=== PATIENT | female | born 1980 | race Caucasian/White ===

== ENCOUNTER 2025-02-13 15:57 | Inpatient (IN) ==
--- NOTE | 2025-02-13 16:23 | Emergency Department Note ---
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 The patient was recently diagnosed with a urine infection. She has a history of Klebsiella ESBL. She was told to come to the emergency department for admission and IV antibiotics because her symptoms are worsening. She is been having sweating at night as well as fever. She was complaining of nausea. She was complaining of back pain. She is also been noticing cough and difficulty breathing. ROS: See above HPI for pertinent positives & negatives. A total of 10 systems reviewed and were otherwise negative. PAST MEDICAL HISTORY: See Below PAST SURGICAL HISTORY: See Below FAMILY HISTORY: See Below SOCIAL HISTORY: See Below HOME MEDICATIONS: See Below ALLERGIES: See Below VITALS: See Below PHYSICAL EXAMINATION: GENERAL: Patient is awake alert in no acute distress patient is resting comfortably and showing no signs of anxiety EYES: The conjunctivae are clear. The pupils are round and reactive. EARS, NOSE, MOUTH AND THROAT: The nose is without any evidence of any deformity. NECK: The neck is nontender and supple. RESPIRATORY: Normal respiratory effort is noted there is no evidence of wheezing rhonchi or rales CARDIOVASCULAR: Regular rate and rhythm noted there no murmurs rubs or gallops normal S1 normal S2. GASTROINTESTINAL: The abdomen is soft and mildly distended. There is no guarding or rigidity appreciated. MUSCULOSKELETAL/EXTREMITIES: There is no evidence of gross deformity full range of motion is noted in the hips and shoulders. SKIN: There is no obvious evidence of any rash. There are no petechiae, pallor or cyanosis noted. NEUROLOGIC: Patient is awake alert and oriented x3 MEDICAL DECISION MAKING: The patient is a 44-year-old female who presented to the emergency department for an evaluation. The patient has a history of chronic indwelling Cintron. The patient has a history of Klebsiella infection with ESBL resistance pattern. The patient was told to come to the emergency department by her primary urologist. The patient presented to the emergency department after started feeling ill including fever and bodyaches. I discussed the patient's laboratory and radiographic studies with her. She was treated with IV fluids as well as IV antibiotics. I discussed her condition with the clinical pharmacist in the emergency department. I discussed the patient's condition with the on-call [facility] hospitalist. They have agreed to evaluate the patient in the emergency department for further management and inpatient treatment. Triage Nursing notes reviewed. Prior medical records reviewed Vital Signs: reviewed and remarkable for no significant abnormalities Differential diagnosis: Etiologies such as appendicitis, diverticulitis, obstruction, inflammatory bowel disease, renal colic, PUD, biliary pathology, pancreatitis, mesenteric ischemia, aortic pathology, infections, genitourinary, UTI, perforated viscus, as well as others were entertained. ER treatment provided: See below Diagnostics interpreted by me: ECG: none Cardiac Monitoring: An order was placed for continuous cardiac monitoring. The monitor shows a rate of 70 bpm with sinus rhythm. Laboratory studies: As stated above and show below. Imaging studies: See below. Radiographic imaging was reviewed by myself Consultation(s): I discussed this case with Dr. Valerio who is on-call for the [facility] hospitalist group. Past Med/Surg History Problem List (Updated 02/13/25 @ 20:32 by Edgardo Acevedo DO) Urinary tract infection (Acute) Infection due to ESBL-producing Klebsiella pneumoniae (Acute) Catheter-associated urinary tract infection (Acute) Chronic narcotic dependence Malfunction of Cintron catheter Paraplegia Catheter-associated urinary tract infection Encounter for pre-operative examination Change in bowel habits Abdominal pain Blood in stool Radicular pain of both lower extremities Shortness of breath Current smoker COPD with emphysema Incontinence Nocturnal hypoxemia COPD with asthma Severe back pain Neuromuscular disease Recurrent UTI Urinary retention Ambulatory dysfunction Post traumatic stress disorder (PTSD) Bipolar affective disorder in remission 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 luz- uses electric wheelchair- will be seeing neurosurgeon in [place] may 2025 Heart problem "they told me i have scarring on my heart" pt states she will see cardio at [facility] on 02/09/25 Snchiara has sleep study on 02/17/25 COPD with emphysema uses daily inhaler and rescue inhaler twice daily- gets sob at rest- follow with dr. lee, smokes < 5 cigs per day Ambulatory dysfunction uses motorized wheelchair Trauma in childhood Hiatal hernia Hepatitis unsure which one, says cleared on own- [facility] physician dr. ileana IBARRA (hyperlipidemia) Depression Surgical History History of surgery on right wrist (2010) fluid in joints S/P inguinal hernia repair right- as achild S/P x2 S/P tubal ligation S/P right oophorectomy (2017) open S/P laparoscopic hysterectomy (2016) RATLH-LSO Family History (Updated 02/13/25 @ 19:30 by Johnny Valerio MD) Other Prostate cancer Denies family history of Neuromuscular disorder Ovarian cancer Breast cancer Colorectal cancer Social History (Updated 02/13/25 @ 19:29 by Johnny Valerio MD) Smoking Status: Current every day smoker Tobacco Type: Cigarettes Age Started Using Tobacco: 11; Age Quit Using Tobacco: 0; packs per day: 1; Cigarettes Per Day: < 5 cigs per day; Second Hand Exposure: No; Do You Dip or Chew Tobacco: No; Hx Alcohol Use: No Hx Substance Use: Yes Last Used Substance Other:: medical marijuana- daily - advised Substance Use Type Other:: Medical Marijuana and Oxycodone for pain Preferred Language: [place] Communication Ability: Effective Bioinformatics Specialist Required: No Beliefs That Will Affect Care: None marital status: Single Current Living Situation: Family Current Living Situation Comment: lives with 2 children in [place] current occupational status: disabled How many Children do You have: 2 Feels Safe at Home: Yes Assistive Devices: Raised Toilet Seat, Stair Lift and Wheelchair Allergies Allergies Allergy/AdvReac Type Severity Reaction Status Date / Time Penicillins Allergy Intermediate Hives Verified 02/05/25 14:27 Home Meds Home Medications Medication Instructions Recorded Confirmed pregabalin 150 mg capsule 150 mg PO TID 10/11/24 02/13/25 omeprazole 40 mg capsule,delayed 40 mg PO BID 11/19/24 02/13/25 release duloxetine 30 mg capsule,delayed 30 mg PO QAM 02/03/25 02/13/25 release nystatin 100,000 unit/gram topical 1 applic topical TID PRN . 02/03/25 02/13/25 powder Previous Rx's Medication Instructions Recorded conjugated estrogens 0.625 mg/gram 0.3125 mg topical .COMPLEX #30 12/08/24 vaginal cream (Premarin) grams Adult Briefs #200 ea 12/26/24 Bedside Commode #1 ea 12/26/24 Grab Bar, Wall Mounted #1 ea 12/26/24 Incontinence pad #200 ea 12/26/24 Nitrile gloves #200 ea 12/26/24 Over the Bed table #1 ea 12/26/24 Perineal Cleansing wipes #12 ea 12/26/24 Trapeze [place] #1 ea 12/26/24 Underpad, Disposable #200 ea 12/26/24 food supplemt, lactose-reduced 15 ea PO TID #1,422 mL 12/26/24 (Ensure Original oral liquid) Flutter Valve #1 ea 12/29/24 albuterol sulfate 90 mcg/actuation 2 puff inhalation Q4H PRN Wheezing 12/29/24 aerosol inhaler #8.5 grams budesonide 160 mcg-glycopyr 9 2 inh inhalation BID #10.7 grams 12/29/24 mcg-formot 4.8 mcg/actuation HFA inhaler (Breztri Aerosphere) zolpidem 5 mg tablet 5 mg PO ONCE PRN sleep #2 tabs 12/29/24 sennosides 8.6 mg-docusate sodium 1 tab PO QAM 30 days #30 tabs 12/31/24 50 mg tablet (Senokot-S) lidocaine 5 % topical patch 1 patch transdermal QAM #30 ea 01/16/25 baclofen 10 mg tablet 10 mg PO TID PRN muscle spasm 30 01/19/25 days #90 tabs buspirone 5 mg tablet 5 mg PO BID #60 tabs 01/19/25 mirtazapine 15 mg tablet 15 mg PO HS depression 1 month #30 01/19/25 tabs nitrofurantoin 100 mg PO DAILY 90 days #90 caps 02/02/25 monohydrate/macrocrystals 100 mg capsule (Macrobid) buprenorphine 10 mcg/hour weekly 1 patch transdermal Q7D 02/09/25 transdermal patch (Butrans) neuromuscular degen disease, severe pain 1 month #4 ea morphine 15 mg immediate release 7.5 mg (1/2 x 15 mg) PO Q6H PRN 02/09/25 tablet breakthrough pain, severe 1 month #90 tabs ondansetron 4 mg disintegrating 4 mg PO Q6H PRN nausea and 02/09/25 tablet vomiting 1 month #90 tabs Results & Data (ED) Vital Signs Vital Signs - 24 hr 02/13/25 16:01 02/13/25 16:52 02/13/25 18:30 Temperature 37.1 C Temperature Source Temporal Artery Scan Pulse Rate 88 Pulse Rate [Finger] 72 70 Respiratory Rate 18 16 16 Respiratory Effort / Characteristics Non-Labored Spontaneous Respiratory Depth Normal Blood Pressure 135/85 Blood Pressure [Right Arm] 146/86 H Blood Pressure Mean 101 Blood Pressure Mean [Right Arm] 106 Pulse Oximetry 98 95 96 Oxygen Delivery Method Room Air Room Air Room Air Sepsis Recent Fever Within 48 Hours No Sepsis New/Unexplained Change in Mental Status No Sepsis Action Taken by Nursing No Action Required Home Medications Current Medication List: was personally reviewed by me Laboratory Data Attestation: I reviewed the patient's lab results. 02/13/25 16:42 02/13/25 16:42 Lab Results 02/13/25 02/13/25 02/13/25 Range/Units 16:42 16:46 18:29 WBC 6.97 (4.8-10.8) K/ul RBC 4.08 L (4.20-5.40) M/uL Hgb 12.2 (12.0-16.0) g/dL Hct 35.3 L (37.0-47.0) % MCV 86.5 (80.0-100.0) fL MCH 29.9 (25.0-34.0) pg MCHC 34.6 (32.0-36.0) g/dL RDW Std Deviation 39.2 (36.4-46.3) fL RDW Coeff of María Elena 12.2 (11.5-14.5) % Plt Count 340 (130-400) K/uL MPV 10.8 (9.4-12.4) fL Immature Gran % (Auto) 0.1 % Neut % (Auto) 75.7 % Lymph % (Auto) 16.2 % Mckenzie % (Auto) 7.3 % Eos % (Auto) 0.4 % Baso % (Auto) 0.3 % Neut # (Auto) 5.27 (1.40-6.50) K/uL Lymph # (Auto) 1.13 L (1.20-3.40) K/uL Mckenzie # (Auto) 0.51 (0.11-0.59) K/uL Eos # (Auto) 0.03 (0.00-0.50) K/uL Baso # (Auto) 0.02 (0.00-0.20) K/uL Immature Gran # (Auto) 0.01 (0.01-0.20) K/uL Sodium 134 L (136-145) mmol/L Potassium 4.1 (3.5-5.1) mmol/L Chloride 103 (98-107) mmol/L Carbon Dioxide 23 (21-32) mmol/L Anion Gap 8 (3-11) BUN 9 (6-23) mg/dl Creatinine 0.98 (0.6-1.2) mg/dl Est Cr Clr Drug Dosing Not Reportable eGFR 72.99 BUN/Creatinine Ratio 9.2 L (10-20) Glucose 106 H (70-99(Fasting)) mg/dl Calcium 8.9 (8.6-10.3) mg/dl Magnesium 1.9 (1.7-2.4) mg/dl Total Bilirubin 0.3 (0.2-1.0) mg/dl AST 15 (13-39) U/L ALT 12 (7-52) U/L Alkaline Phosphatase 85 (34-104) U/L Total Protein 6.2 (6.0-8.3) gm/dl Albumin 3.9 (3.4-5.0) gm/dl Globulin 2.3 L (2.5-4.0) gm/dl Albumin/Globulin Ratio 1.7 (0.9-2) Lipase 10 L (11-82) U/L Urine Color Yellow Urine Appearance Clear (Clear) Urine pH 7.0 (4.5-7.5) Ur Specific [place] > 1.045 H (1.000-1.030) Urine Protein Negative (Negative) Urine Glucose (UA) Negative (Negative) Urine Ketones Trace H (Negative) Urine Blood Negative (Negative) Urine Nitrite Negative (Negative) Urine Bilirubin Negative (Negative) Urine Urobilinogen Negative (Negative) Ur Leukocyte Esterase Negative (Negative) Urine Comment SARS-CoV-2 (PCR) NEGATIVE (Negative) Influenza Type A (PCR) Negative (Neg) Influenza Type B (PCR) Negative (Neg) RSV (RT-PCR) Negative (Neg) Administered Medications Discontinued Medications Sodium Chloride (Nss) 1,000 mls @ 999 mls/hr IV .Q1H1M STA Stop: 02/13/25 17:13 Last Infusion: 02/13/25 17:50 Dose: Infused Documented By: Admin: 02/13/25 16:47 Dose: 999 mls/hr Documented By: DELMI Ertapenem (Invanz 1000mg) 1,000 mg in 10 mls @ 2 mls/min IV NOW ONE Stop: 02/13/25 16:34 Last Admin: 02/13/25 16:47 Dose: 2 mls/min Documented By: DELMI Ioversol (Optiray 320 100ml) 93 ml IV ONCE ONE Stop: 02/13/25 16:35 Last Admin: 02/13/25 16:35 Dose: 93 ml Documented By: OSCAR Morphine Sulfate (Morphine Sulfate Ir 15 Mg Tab (Immediate Release)) 15 mg PO ONE STA Stop: 02/13/25 19:01 Last Admin: 02/13/25 19:16 Dose: 15 mg Documented By: DELMI Ondansetron HCl (Ondansetron Inj 2 Mg/Ml 2 Ml Vial) 4 mg IV NOW STA Stop: 02/13/25 19:01 Last Admin: 02/13/25 19:16 Dose: 4 mg Documented By: DELMI Imaging Data Attestation: I personally reviewed and interpreted this imaging study as follows: My Impression: CT of the abdomen and pelvis was obtained in the emergency department. My interpretation is no free air or definite bowel obstruction, final report below. Radiologist's Impression: Abdomen/Pelvis CT 02/13/25 16:13 Clinical History: Dysuria Technique: Axial computed tomography images were obtained of the abdomen and pelvis after the administration of intravenous contrast. Comparison is made to the prior CT dated 01/08/2025. Findings: The liver is overall of normal size, attenuation, and contour with no sign of cirrhosis or significant fatty infiltration. No liver mass lesion is seen. The portal vein is patent. The gallbladder appears unremarkable. No bile duct dilatation is noted. The spleen is of normal size. No focal splenic lesion is evident. The pancreas appears normal with no sign of acute or chronic pancreatitis and no mass lesion noted. The pancreatic duct is of normal caliber. The adrenal glands appear unremarkable. No definite renal or proximal ureteral calculi are seen on this contrast-enhanced study. There is no hydronephrosis or perinephric stranding. No renal mass lesion is identified. The aorta is of normal caliber. No abdominal adenopathy is seen. There is prominence of the gastric bulge that may be due to the decompressed state. There is no sign of small bowel obstruction. There is possible mild wall thickening of the sigmoid colon and rectum. No free intraperitoneal fluid or air is identified. No distal ureteral or bladder calculi are seen. No bladder mass lesion is evident. There is a Cintron catheter with the tip and balloon within the urethra rather than the urinary bladder. The iliac arteries are of normal caliber. No pelvic adenopathy is noted. The uterus has been removed. There is apparent pelvic prolapse The lungs bases appear clear. No fracture is identified. No focal osseous lesion is seen Impression: 1. Cintron catheter with the tip and balloon within the urethra rather than the urinary bladder. Repositioning may be needed 2. Possible mild wall thickening of the sigmoid colon and rectum, which may be due to infectious colitis or inflammatory bowel disease 3. Apparent pelvic prolapse Electronically signed by George García 02-13-2025 5:23 PM Chest X-Ray 02/13/25 16:13 Clinical History: Cough Technique: A frontal view of the chest was obtained Findings: There are no confluent pulmonary infiltrates. The heart size is within normal limits. No pleural effusion or pneumothorax is seen. There is no definite pulmonary nodule. No fracture is noted. No foreign body is seen Impression: No active disease Electronically signed by George García 02-13-2025 5:25 PM Discharge Plan Visit Data Chief Complaint: Urinary Symptoms Stated Complaint: UTI ED Provider: Edgardo Acevedo Discharge Problem: Catheter-associated urinary tract infection, Infection due to ESBL-producing Klebsiella pneumoniae, Urinary tract infection Patient Disposition: Being Evaluated by Hospitalist Condition: Fair Forms Stand Alone Forms: Pending Sale To [facility] Prescriptions Prescriptions: No Action (DME) Adult Briefs XL See Rx Instructions .Route .MEDSUPPLY Qty: 200 3RF Rx Instructions: As directed (DME) Trapeze [place] See Rx Instructions .Route .MEDSUPPLY Qty: 1 0RF Rx Instructions: As directed (DME) Incontinence pad See Rx Instructions .Route .MEDSUPPLY Qty: 200 3RF Rx Instructions: As directed (DME) Bedside Commode See Rx Instructions .Route .MEDSUPPLY Qty: 1 0RF Rx Instructions: As directed (DME) Over the Bed table See Rx Instructions .Route .MEDSUPPLY Qty: 1 0RF Rx Instructions: As directed (DME) Perineal Cleansing wipes See Rx Instructions .Route .MEDSUPPLY Qty: 12 3RF Rx Instructions: As directed (DME) Underpad, Disposable See Rx Instructions .Route .MEDSUPPLY Qty: 200 3RF Rx Instructions: As directed (DME) Grab Bar, Wall Mounted See Rx Instructions .Route .MEDSUPPLY Qty: 1 0RF Rx Instructions: As directed (DME) Nitrile gloves See Rx Instructions .Route .MEDSUPPLY Qty: 200 0RF Rx Instructions: As directed Ensure Original Liquid 15 ea PO TID Qty: 1422 3RF sennosides-docusate sodium [Senokot-S] 8.6-50 mg tablet 1 tab PO QAM 30 Days Qty: 30 3RF lidocaine 5 % adhesive patch,medicated 1 patch transdermal QAM Qty: 30 0RF baclofen 10 mg tablet 10 mg PO TID PRN (Reason: muscle spasm) 30 Days Qty: 90 1RF mirtazapine 15 mg tablet 15 mg PO HS 30 Days Qty: 30 1RF buspirone 5 mg tablet 5 mg PO BID Qty: 60 3RF buprenorphine [Butrans] 10 mcg/hour patch weekly 1 patch transdermal Q7D 30 Days Qty: 4 0RF morphine 15 mg tablet 7.5 mg PO Q6H PRN (Reason: breakthrough pain, severe) 30 Days Qty: 90 0RF ondansetron 4 mg tablet,disintegrating 4 mg PO Q6H PRN (Reason: nausea and vomiting) 30 Days Qty: 90 1RF Premarin 0.625 mg/gram cream 0.3125 mg topical .COMPLEX Qty: 30 0RF Rx Instructions: apply 0.5g nightly x 2 weeks, then 2x/wk albuterol sulfate 90 mcg/actuation HFA aerosol inhaler 2 puff inhalation Q4H PRN (Reason: Wheezing) Qty: 8.5 3RF Breztri Aerosphere 160-9-4.8 mcg/actuation HFA aerosol inhaler 2 inh inhalation BID Qty: 10.7 2RF zolpidem 5 mg tablet 5 mg PO ONCE PRN (Reason: sleep) Qty: 2 0RF Rx Instructions: Take 1 tab on the night of sleep study (DME) Flutter Valve Device See Rx Instructions .MEDSUPPLY Qty: 1 0RF Rx Instructions: Use it every 6 hours when awake. nitrofurantoin monohyd/m-cryst [Macrobid] 100 mg capsule 100 mg PO DAILY 90 Days Qty: 90 0RF Rx Instructions: must administer with a meal/food, antibiotic suppression for recurrent UTI, start after current course Levaquin completed (02/09) nystatin 100,000 unit/gram powder 1 applic topical TID PRN (Reason: .) duloxetine 30 mg capsule,delayed release(DR/EC) 30 mg PO QAM omeprazole 40 mg capsule,delayed release(DR/EC) 40 mg PO BID pregabalin 150 mg capsule 150 mg PO TID Referrals Referrals: Royer Schofield DO [Primary Care Provider] -
[2025-02-13] MEDS: OPTIRAY 320 100ml IV ONE (16:35)
[2025-02-13] MEDS: SODIUM CHLORIDE 0.9% 1,000 ML IV STA (16:47)
[2025-02-13] MEDS: ERTAPENEM 1000MG 1,000 MG/10 ML SYR IV ONE (16:47)
[2025-02-13 17:13] LABS: Hematocrit (blood only) 35.3 % (37.0-47.0); Hemoglobin 12.2 g/dL (12.0-16.0); Immature Granulocytes # (auto) 0.01 K/uL (0.01-0.20); Immature Granulocytes % (auto) 0.1 %; Mean Corpuscular Hemoglobin 29.9 pg (25.0-34.0); Mean Corpuscular Volume 86.5 fL (80.0-100.0); Platelet Count 340 K/uL (130-400); RDW Standard Deviation 39.2 fL (36.4-46.3); Red Blood Count 4.08 M/uL (4.20-5.40); White Blood Count 6.97 K/ul (4.8-10.8)
--- NOTE | 2025-02-13 17:25 | CT Scan Report ---
Clinical History: Dysuria Technique: Axial computed tomography images were obtained of the abdomen and pelvis after the administration of intravenous contrast. Comparison is made to the prior CT dated 01/08/2025. Findings: The liver is overall of normal size, attenuation, and contour with no sign of cirrhosis or significant fatty infiltration. No liver mass lesion is seen. The portal vein is patent. The gallbladder appears unremarkable. No bile duct dilatation is noted. The spleen is of normal size. No focal splenic lesion is evident. The pancreas appears normal with no sign of acute or chronic pancreatitis and no mass lesion noted. The pancreatic duct is of normal caliber. The adrenal glands appear unremarkable. No definite renal or proximal ureteral calculi are seen on this contrast-enhanced study. There is no hydronephrosis or perinephric stranding. No renal mass lesion is identified. The aorta is of normal caliber. No abdominal adenopathy is seen. There is prominence of the gastric bulge that may be due to the decompressed state. There is no sign of small bowel obstruction. There is possible mild wall thickening of the sigmoid colon and rectum. No free intraperitoneal fluid or air is identified. No distal ureteral or bladder calculi are seen. No bladder mass lesion is evident. There is a Moya catheter with the tip and balloon within the urethra rather than the urinary bladder. The iliac arteries are of normal caliber. No pelvic adenopathy is noted. The uterus has been removed. There is apparent pelvic prolapse The lungs bases appear clear. No fracture is identified. No focal osseous lesion is seen Impression: 1. Moya catheter with the tip and balloon within the urethra rather than the urinary bladder. Repositioning may be needed 2. Possible mild wall thickening of the sigmoid colon and rectum, which may be due to infectious colitis or inflammatory bowel disease 3. Apparent pelvic prolapse Electronically signed by George García 02-13-2025 5:23 PM
--- NOTE | 2025-02-13 17:26 | XRay Report ---
Clinical History: Cough Technique: A frontal view of the chest was obtained Findings: There are no confluent pulmonary infiltrates. The heart size is within normal limits. No pleural effusion or pneumothorax is seen. There is no definite pulmonary nodule. No fracture is noted. No foreign body is seen Impression: No active disease Electronically signed by George García 02-13-2025 5:25 PM
[2025-02-13 17:32] LABS: Alanine Aminotransferase 12 U/L (7-52); Albumin Globulin Ratio 1.7 (0.9-2); Albumin Level 3.9 gm/dl (3.4-5.0); Alkaline Phosphatase 85 U/L (34-104); Anion Gap 8 (3-11); Bilirubin,Total 0.3 mg/dl (0.2-1.0); Blood Urea Nitrogen 9 mg/dl (6-23); Calcium 8.9 mg/dl (8.6-10.3); Carbon Dioxide 23 mmol/L (21-32); Chloride 103 mmol/L (98-107); Globulin 2.3 gm/dl (2.5-4.0); Glucose 106 mg/dl (70-99(Fasting)); Lipase 10 U/L (11-82); Potassium 4.1 mmol/L (3.5-5.1); Sodium 134 mmol/L (136-145); Total Protein 6.2 gm/dl (6.0-8.3)
[2025-02-13 17:39] LABS: Influenza A virus by PCR Negative (Neg); Influenza B virus by PCR Negative (Neg); SARS CoV2 RNA(COVID-19) Ceph NEGATIVE (Negative)
--- NOTE | 2025-02-13 18:19 | History & Physical Report ---
Date of Service February 13, 2025 Assessment & Plan (1) Catheter-associated urinary tract infection: (2) Malfunction of Cintron catheter: (3) COPD with emphysema: (4) Neuromuscular disease: (5) Paraplegia: (6) Bipolar affective disorder in remission: (7) Neoplasm of cranial nerve: (8) Arachnoiditis of spine: (9) GERD (gastroesophageal reflux disease): (10) Chronic narcotic dependence: Plan 44yo female with history of progressive neuromuscular disorder (vs myopathy) with resulting wheelchair-dependency / acquired paraplegia, lumbar arachnoiditis, chronic indwelling urinary catheter, ongoing tobacco use, COPD, recurrent UTIs, GERD, and chronic pain syndrome (on Butrans patch + morphine IR prn) presents from home with her significant other due to 3-4 days of leaking cintron catheter, bladder spasm, hot/cold chills, poor oral intake, bladder pain/abdominal pain, and nausea. No discrete fevers. About 2 weeks ago was dx with an ESBL Klebsiella UTI and was prescribed a 7-day course of levaquin but she never took such. #catheter-associated UTI - -01/30/25 urine cx with ESBL Klebsiella -was prescribed levaquin by [facility] but patient reports she never took it -has had bladder symptoms for several days -has had systemic symptoms (decreased PO intake, sweats, etc) also for several days -I ordered blood cx's x 2 sets -IV ertapenem ordered by ER provider to cover the ESBL Klebsiella -cintron catheter was malpositioned on CT a/p today -old cintron removed, new cintron placed -many of her bladder symptoms improved after a new cintron was placed -repeat u/a relatively bland -in light of her bladder symptoms will cont IV ertapenem for now #cintron malposition - -as above -s/p removal of old cintron; new cintron placed #acquired paraplegia - -2nd to neuromuscular disorder vs myopathy; follows with Dr Jhonatan Quick, [facility] -wheelchair-dependent at baseline #neuromuscular d/o vs myopathy - -schedule her baclofen 10mg TID as she is reporting considerable muscle spasm, back pain, etc. today -cont duloxetine daily -cont lyrica TID #tobacco use - -offer nicoderm patch if desired by patient #COPD - -chest symptoms likely due to COPD -schedule duonebs QID -defer on systemic steroids for now -mucinex BID -cont home inhalers #GERD - -PPI twice daily #chronic pain syndrome - -cont butrans patch 10mcg- -cont morphine IR - 7.5mg prn for mild/mod pain; 15mg prn for severe pain #DVT proph - -if patient stays beyond tomorrow add SC lovenox or heparin #?abnormal distal colon on CT, diarrhea - -just had colonoscopy on 02/05 -colonoscopy was normal except for hemorrhoids -in light of frequent healthcare exposure will check a cdiff if she continues with diarrhea place on observation status History of Present Illness Chief Complaint: sweats, hot/cold chills, poor oral intake, recent ESBL Klebsiella UTI Primary Care Provider: Royer Schofield, 44yo female with history of progressive neuromuscular disorder vs myopathy with resulting wheelchair-dependency / acquired paraplegia, lumbar arachnoiditis, chronic indwelling urinary catheter, ongoing tobacco use, COPD, recurrent UTIs, GERD, and chronic pain syndrome (on Butrans patch + morphine IR prn) presents from home with her significant other due to 3-4 days of leaking cintron catheter, bladder spasm, hot/cold chills, poor oral intake, bladder pain/abdominal pain, and nausea. No discrete fevers. About 2 weeks ago was dx with an ESBL Klebsiella UTI and was prescribed a 7-day course of levaquin but she never took such. During her ER work-up she underwent CT abdomen/pelvis showing incorrect placement of her cintron catheter with the tip of the catheter & the balloon lodged in the urethra rather than bladder. She has had this cintron for about 2 weeks to her recollection. The old catheter was removed, and a new cintron was inserted with immediate return of 400cc of clear yellow urine. She did report improvement in her bladder pain/pressure/spasm following cintron exchange. Allergies Allergy/AdvReac Type Severity Reaction Status Date / Time Penicillins Allergy Intermediate Hives Verified 02/05/25 14:27 Home Medications Medication Instructions Recorded Confirmed Type pregabalin 150 mg capsule 150 mg PO TID 10/11/24 02/13/25 History omeprazole 40 mg capsule,delayed 40 mg PO BID 11/19/24 02/13/25 History release conjugated estrogens 0.625 mg/gram 0.3125 mg topical .COMPLEX #30 12/08/24 02/13/25 Rx vaginal cream (Premarin) grams Adult Briefs #200 ea 12/26/24 01/30/25 Rx Bedside Commode #1 ea 12/26/24 01/30/25 Rx Grab Bar, Wall Mounted #1 ea 12/26/24 01/30/25 Rx Incontinence pad #200 ea 12/26/24 01/30/25 Rx Nitrile gloves #200 ea 12/26/24 01/30/25 Rx Over the Bed table #1 ea 12/26/24 01/30/25 Rx Perineal Cleansing wipes #12 ea 12/26/24 02/13/25 Rx Trapeze [place] #1 ea 12/26/24 02/13/25 Rx Underpad, Disposable #200 ea 12/26/24 02/13/25 Rx food supplemt, lactose-reduced 15 ea PO TID #1,422 mL 12/26/24 02/13/25 Rx (Ensure Original oral liquid) Flutter Valve #1 ea 12/29/24 01/30/25 Rx albuterol sulfate 90 mcg/actuation 2 puff inhalation Q4H PRN Wheezing 12/29/24 02/13/25 Rx aerosol inhaler #8.5 grams budesonide 160 mcg-glycopyr 9 2 inh inhalation BID #10.7 grams 12/29/24 02/13/25 Rx mcg-formot 4.8 mcg/actuation HFA inhaler (Breztri Aerosphere) zolpidem 5 mg tablet 5 mg PO ONCE PRN sleep #2 tabs 12/29/24 02/13/25 Rx sennosides 8.6 mg-docusate sodium 1 tab PO QAM 30 days #30 tabs 12/31/24 02/13/25 Rx 50 mg tablet (Senokot-S) lidocaine 5 % topical patch 1 patch transdermal QAM #30 ea 01/16/25 02/13/25 Rx baclofen 10 mg tablet 10 mg PO TID PRN muscle spasm 30 01/19/25 02/13/25 Rx days #90 tabs buspirone 5 mg tablet 5 mg PO BID #60 tabs 01/19/25 02/13/25 Rx mirtazapine 15 mg tablet 15 mg PO HS depression 1 month #30 01/19/25 02/13/25 Rx tabs nitrofurantoin 100 mg PO DAILY 90 days #90 caps 02/02/25 02/13/25 Rx monohydrate/macrocrystals 100 mg capsule (Macrobid) duloxetine 30 mg capsule,delayed 30 mg PO QAM 02/03/25 02/13/25 History release nystatin 100,000 unit/gram topical 1 applic topical TID PRN . 02/03/25 02/13/25 History powder buprenorphine 10 mcg/hour weekly 1 patch transdermal Q7D 02/09/25 02/13/25 Rx transdermal patch (Butrans) neuromuscular degen disease, severe pain 1 month #4 ea morphine 15 mg immediate release 7.5 mg (1/2 x 15 mg) PO Q6H PRN 02/09/25 02/13/25 Rx tablet breakthrough pain, severe 1 month #90 tabs ondansetron 4 mg disintegrating 4 mg PO Q6H PRN nausea and 02/09/25 02/13/25 Rx tablet vomiting 1 month #90 tabs Past Med/Surg History Problem List Urinary tract infection (Acute) Infection due to ESBL-producing Klebsiella pneumoniae (Acute) Catheter-associated urinary tract infection (Acute) Chronic narcotic dependence Malfunction of Cintron catheter Paraplegia Catheter-associated urinary tract infection Encounter for pre-operative examination Change in bowel habits Abdominal pain Blood in stool Radicular pain of both lower extremities Shortness of breath Current smoker COPD with emphysema Incontinence Nocturnal hypoxemia COPD with asthma Severe back pain Neuromuscular disease Recurrent UTI Urinary retention Ambulatory dysfunction Post traumatic stress disorder (PTSD) Bipolar affective disorder in remission 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 quick- uses electric wheelchair- will be seeing neurosurgeon in [place] may 2025 Heart problem "they told me i have scarring on my heart" pt states she will see cardio at [facility] on 02/09/25 Snchiara has sleep study on 02/17/25 COPD with emphysema uses daily inhaler and rescue inhaler twice daily- gets sob at rest- follow with dr. lee, smokes < 5 cigs per day Ambulatory dysfunction uses motorized wheelchair Trauma in childhood Hiatal hernia Hepatitis unsure which one, says cleared on own- [facility] physician dr. ileana IBARRA (hyperlipidemia) Depression Surgical History History of surgery on right wrist (2010) fluid in joints S/P inguinal hernia repair right- as achild S/P x2 S/P tubal ligation S/P right oophorectomy (2017) open S/P laparoscopic hysterectomy (2016) RATLH-LSO Family History Other Prostate cancer Denies family history of Neuromuscular disorder Ovarian cancer Breast cancer Colorectal cancer Social History Smoking Status: Current every day smoker Tobacco Type: Cigarettes Age Started Using Tobacco: 11; Age Quit Using Tobacco: 0; packs per day: 1; Cigarettes Per Day: < 5 cigs per day; Second Hand Exposure: Yes; Do You Dip or Chew Tobacco: No; Tobacco Cessation Education Requested by Patient: No Hx Alcohol Use: No Hx Substance Use: Yes Last Used Substance: Just Prior to Arrival Last Used Substance Other:: This morning Substance Use Type Other:: Medical Marijuana and Oxycodone for pain Preferred Language: Urdu Communication Ability: Effective Fruit Stuffer Required: No Beliefs That Will Affect Care: None marital status: Single Current Living Situation: Family and Significant Other Current Living Situation Comment: lives with 2 children in [place] current occupational status: disabled How many Children do You have: 2 Other Information That Helps Us Care for You: No Feels Safe at Home: Yes Safety Concerns: Feels Safe At This Time Assistive Devices: Hospital Bed, Lift Chair, Raised Toilet Seat, Scooter/Electric Scooter, Stair Lift and Wheelchair Review of Systems Review of Systems: gen - no fevers, but has had hot/cold chills & sweats last few days; eating has been poor eyes - no ocular symptoms HENT - no URI symptoms CV - chest tightness, but no pain; no edema pulm - mild cough, mild wheezing, no dyspnea at rest GI - some nausea, but no vomiting; mild suprapubic discomfort - bladder pain, bladder spasm, no hematuria musculo - myalgias/aches, muscle weakness neuro - hand numbness b/l; prox muscle weakness; no headache today endo - no diabetes skin - no rash Physical Exam Physical Exam: gen - resting comfortably in bed, NAD, awake, alert eyes - PERRL HENT - mouth with dry MM, no lesions, tongue is white - ?thrush neck - no JVD, no goiter, no lymph nodes heart - RRR, s1 s2, no murmur lungs - mild end-exp wheezes b/l, no rales, no increased work of breathing abd - soft NT ND BS+, no HSM ext - no edema, pulses 2+ b/l feet neuro - increased tone b/l LEs; prox muscle weakness shoulder region and hip region; ankle clonus b/l - couple beats; DTRs brisk b/l; no facial droop skin - no rash psych - a/o x 3 - cintron in place, clear yellow urine in cintron bag Results & Data Results & Data Vital Signs (Past 12 Hours) Vital Signs Temp Pulse Pulse Resp BP Pulse Ox O2 Del Method 02/13/25 16:52 72 16 95 Room Air 02/13/25 16:01 37.1 C 88 18 135/85 98 Room Air Laboratory Results Laboratory Results - last 24 hr 02/13/25 02/13/25 02/13/25 16:42 16:46 18:29 WBC 6.97 RBC 4.08 L Hgb 12.2 Hct 35.3 L MCV 86.5 MCH 29.9 MCHC 34.6 RDW Std Deviation 39.2 RDW Coeff of María Elena 12.2 Plt Count 340 MPV 10.8 Immature Gran % (Auto) 0.1 Neut % (Auto) 75.7 Lymph % (Auto) 16.2 [place] % (Auto) 7.3 Eos % (Auto) 0.4 Baso % (Auto) 0.3 Neut # (Auto) 5.27 Lymph # (Auto) 1.13 L [place] # (Auto) 0.51 Eos # (Auto) 0.03 Baso # (Auto) 0.02 Immature Gran # (Auto) 0.01 Sodium 134 L Potassium 4.1 Chloride 103 Carbon Dioxide 23 Anion Gap 8 BUN 9 Creatinine 0.98 Est Cr Clr Drug Dosing Not Reportable eGFR 72.99 BUN/Creatinine Ratio 9.2 L Glucose 106 H Calcium 8.9 Magnesium Pending Total Bilirubin 0.3 AST 15 ALT 12 Alkaline Phosphatase 85 Total Protein 6.2 Albumin 3.9 Globulin 2.3 L Albumin/Globulin Ratio 1.7 Lipase 10 L Urine Color Yellow Urine Appearance Clear Urine pH 7.0 Ur Specific [place] > 1.045 H Urine Protein Negative Urine Glucose (UA) Negative Urine Ketones Trace H Urine Blood Negative Urine Nitrite Negative Urine Bilirubin Negative Urine Urobilinogen Negative Ur Leukocyte Esterase Negative Urine Comment SARS-CoV-2 (PCR) NEGATIVE Influenza Type A (PCR) Negative Influenza Type B (PCR) Negative RSV (RT-PCR) Negative Diagnostic Findings Abdomen/Pelvis CT 02/13/25 16:13 Clinical History: Dysuria Technique: Axial computed tomography images were obtained of the abdomen and pelvis after the administration of intravenous contrast. Comparison is made to the prior CT dated 01/08/2025. Findings: The liver is overall of normal size, attenuation, and contour with no sign of cirrhosis or significant fatty infiltration. No liver mass lesion is seen. The portal vein is patent. The gallbladder appears unremarkable. No bile duct dilatation is noted. The spleen is of normal size. No focal splenic lesion is evident. The pancreas appears normal with no sign of acute or chronic pancreatitis and no mass lesion noted. The pancreatic duct is of normal caliber. The adrenal glands appear unremarkable. No definite renal or proximal ureteral calculi are seen on this contrast-enhanced study. There is no hydronephrosis or perinephric stranding. No renal mass lesion is identified. The aorta is of normal caliber. No abdominal adenopathy is seen. There is prominence of the gastric bulge that may be due to the decompressed state. There is no sign of small bowel obstruction. There is possible mild wall thickening of the sigmoid colon and rectum. No free intraperitoneal fluid or air is identified. No distal ureteral or bladder calculi are seen. No bladder mass lesion is evident. There is a Cintron catheter with the tip and balloon within the urethra rather than the urinary bladder. The iliac arteries are of normal caliber. No pelvic adenopathy is noted. The uterus has been removed. There is apparent pelvic prolapse The lungs bases appear clear. No fracture is identified. No focal osseous lesion is seen Impression: 1. Cintron catheter with the tip and balloon within the urethra rather than the urinary bladder. Repositioning may be needed 2. Possible mild wall thickening of the sigmoid colon and rectum, which may be due to infectious colitis or inflammatory bowel disease 3. Apparent pelvic prolapse Electronically signed by George García 02-13-2025 5:23 PM Chest X-Ray 02/13/25 16:13 Clinical History: Cough Technique: A frontal view of the chest was obtained Findings: There are no confluent pulmonary infiltrates. The heart size is within normal limits. No pleural effusion or pneumothorax is seen. There is no definite pulmonary nodule. No fracture is noted. No foreign body is seen Impression: No active disease Electronically signed by George García 02-13-2025 5:25 PM ECG Additional Comments: EKG - my reading - NSR, poor R wave progression, inverted T wave V2, no ST changes; prominent T waves in the limb leads (somewhat peaked) Code Status & VTE Plan Code Status full code PG Care Time/CCT Total # of Minutes Spent Total Time Spent with Patient: Total time spent is greater than 50% in coordination of care (as documented) at patient's floor/unit and/or counseling patient: Coding Level of Care Code 57296 INT INP/OBS CARE 2/MIN Diagnoses Catheter-associated urinary tract infection T83.511A; N39.0 Malfunction of Cintron catheter T83.011A COPD with emphysema J43.9 Neuromuscular disease G70.9 Paraplegia G82.20 Bipolar affective disorder in remission F31.70 Neoplasm of cranial nerve D49.7 Arachnoiditis of spine G03.9 GERD (gastroesophageal reflux disease) K21.9 Chronic narcotic dependence F11.20
[2025-02-13 18:48] LABS: Appearance Urine Clear (Clear); Glucose Urine UA Negative (Negative)
[2025-02-13] MEDS: MoRPHine SULFATE IR 15 MG TAB (IMMEDIATE RELEASE) PO STA (19:16)
[2025-02-13] MEDS: ONDANSETRON INJ 2 MG/ML 2 ML VIAL IV STA (19:16)
[2025-02-13 20:22] LABS: Magnesium 1.9 mg/dl (1.7-2.4)
[2025-02-13] MEDS ORDERED: ALBUTEROL HFA 8 GM INHALER INH PRN (21:51)
[2025-02-13] MEDS ORDERED: MoRPHine SULFATE IR 15 MG TAB (IMMEDIATE RELEASE) PO PRN (21:51)
[2025-02-13] MEDS ORDERED: NON-FORMULARY MEDICATION (Budesonide-Glycopyr-Formoterol [Breztri Aerosphere] 160-9-4.8 mc INH SCH (21:51)
[2025-02-13] MEDS: REMOVE LIDODERM PATCH SCH (22:20)
[2025-02-13] MEDS: ALBUT/IPRATROP 3MG/0.5MG NEB 3 ML VIAL NEB SCH (22:27)
[2025-02-13] MEDS: PROCHLORPERAZINE 5 MG in SYRINGE 4 ML IV ONE (22:45)
[2025-02-13] MEDS: busPIRone 5 MG TAB PO SCH (22:46)
[2025-02-13] MEDS: MIRTAZAPINE TAB 15 MG TAB PO SCH (22:46)
[2025-02-13] MEDS: BACLOFEN 10 MG TAB PO SCH (22:46)
[2025-02-13] MEDS: PREGABALIN 150 MG CAP PO SCH (22:46)
[2025-02-13] MEDS: guaiFENesin 600 MG TABCR PO SCH (22:46)
[2025-02-13] MEDS: UMECLIDINIUM/VILANTEROL 62.5/25MCG 7 PUFFS/INHALER INH SCH (22:47)
[2025-02-13] MEDS: FLUTICASONE FUROATE 200MCG 14 PUFFS/INHALER INH SCH (22:47)
[2025-02-13] MEDS: MoRPHine SULFATE IR 15 MG TAB (IMMEDIATE RELEASE) PO PRN (22:53)
[2025-02-13] MEDS: SODIUM CHLORIDE 0.9% 1,000 ML IV SCH (22:56)
[2025-02-14] MEDS: PROCHLORPERAZINE 5 MG in SYRINGE 4 ML IV ONE (05:47)
[2025-02-14 07:41] LABS: Anion Gap 7.0 (3-11); Blood Urea Nitrogen 8.0 mg/dl (6-23); Calcium 8.7 mg/dl (8.6-10.3); Carbon Dioxide 24.0 mmol/L (21-32); Chloride 110.0 mmol/L (98-107); Creatinine Clr Calc Pharmacy 70.1 ml/min; Glucose 91.0 mg/dl (70-99(Fasting)); Potassium 3.8 mmol/L (3.5-5.1); Sodium 141.0 mmol/L (136-145)
[2025-02-14] MEDS: LIDOCAINE 5% 1 PATCH TD SCH (08:07)
--- NOTE | 2025-02-14 08:23 | Electrocardiogram Report ---
Test Reason : Blood Pressure : */* mmHG Vent. Rate : 64 BPM Atrial Rate : 64 BPM P-R Int : 196 ms QRS Dur : 96 ms QT Int : 428 ms P-R-T Axes : 40 36 16 degrees QTcB Int : 441 ms Normal sinus rhythm Normal ECG When compared with ECG of 08-Jan-2025 17:45, Premature atrial complexes are no longer Present Vent. rate has decreased by 34 bpm Confirmed by Lito Vargas ([id number]) on 02/14/2025 8:23:12 AM Referred By: REFERRED SELF Confirmed By: Lito Vargas
[2025-02-14] MEDS: BUPRENORPHINE 10 MCG/HR TDSY TD SCH (08:32)
[2025-02-14] MEDS: DOCUSATE SODIUM/SENNA 50/8.6MG TAB PO SCH (08:32)
[2025-02-14 14:59] LABS: Cdiff Toxin B Gene (2yr or >) Negative Cdiff Gene (Neg)
--- NOTE | 2025-02-14 15:22 | Hospitalist Progress Note ---
Date of Service February 14, 2025 Assessment & Plan (1) Catheter-associated urinary tract infection: (2) Malfunction of Cintron catheter: (3) COPD with emphysema: (4) Neuromuscular disease: (5) Paraplegia: (6) Bipolar affective disorder in remission: (7) Neoplasm of cranial nerve: (8) Arachnoiditis of spine: (9) GERD (gastroesophageal reflux disease): (10) Chronic narcotic dependence: Plan 44yo female with history of progressive neuromuscular disorder (vs myopathy) with resulting wheelchair-dependency / acquired paraplegia, lumbar arachnoiditis, chronic indwelling urinary catheter, ongoing tobacco use, COPD, recurrent UTIs, GERD, and chronic pain syndrome (on Butrans patch + morphine IR prn) presents from home with her significant other due to 3-4 days of leaking cintron catheter, bladder spasm, hot/cold chills, poor oral intake, bladder pain/abdominal pain, and nausea. No discrete fevers. About 2 weeks ago was dx with an ESBL Klebsiella UTI and was prescribed a 7-day course of levaquin but she never took such. #catheter-associated UTI - -01/30/25 urine cx with ESBL Klebsiella -was prescribed levaquin by [facility] but patient reports she never took it and came to ED d/t feeling more sick -+leaking Cintron, bladder spasms -with +ROS systemic symptoms (decreased PO intake, chills, sweats) -blood cx's x 2 pending -IV ertapenem ordered by ER for ESBL Klebsiella -cintron catheter was malpositioned on CT a/p in ED with new catheter inserted -many of her bladder symptoms improved after a new cintron was placed -repeat u/a with no overt signs of infection -cont IV ertapenem for now pending BC results and will transition to oral ##uncomplicated vulvovaginal valdo -will treat based on external exam with +ROS symptoms -Diflucan 150mg X 1 #cintron malposition - -as above -s/p removal of old cintron; new cintron placed #acquired paraplegia - -2nd to neuromuscular disorder vs myopathy; follows with Dr Jhonatan Quick, 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- -baclofen 10mg TID for muscle spasms -cont duloxetine daily -cont lyrica TID -minced moist diet, mildly thick nectar liquids #tobacco use - -offer nicoderm patch if desired by patient #COPD - -chest symptoms likely due to COPD -schedule duonebs QID -mucinex BID -cont home inhalers #GERD - -PPI twice daily #chronic pain syndrome - -cont butrans patch 10mcg- -cont morphine IR - 7.5mg prn for mild/mod pain; 15mg prn for severe pain #?abnormal distal colon on CT, diarrhea - -just had colonoscopy on 02/05 -colonoscopy was normal except for hemorrhoids -Obtain Cdiff testing DVT Proph: add Lovenox 40mg SQ Dispo: continued stay, possible d/c tomorrow Admission and Anticipated Discharge Date Admission Date: February 13, 2025 Subjective Still with some fleeting nausea since last evening. Has + chills at time with getting hot. Tolerating oral fluids. States she never started Levaquin as outpatient for UTI as until the medication was going to be provided to her she became more sick in the interim with chills and weakness. Reports + thick, whitish vaginal discharge over the past few days when changing undergarments. Did complete a 2 day course of medication for vaginal yeast symptoms in Nov 2024. Had vag culture 11/2024 with similar symptoms with outpatient gynecology with no clue cells/mod normal bryan. +vag itching and localized irritation. Review of Systems Review of Systems: All systems reviewed & are unremarkable except as noted in Subjective Physical Exam Physical Exam: GENERAL APPEARANCE: A&O. Sitting comfortably on stretcher. NAD. SKIN: Normal color without rashes or lesions. Normal turgor. HEENT: Head AT/NC. Buccal mucosa is moist and pink. NECK: No jugular venous distention. No thyroid enlargement. There is no lymphadenopathy. HEART: RRR without m/g/r LUNGS: Normal inspiratory effort. CTA without w/r/r ABDOMEN: No guarding or rigidity. Normoactive BS in all four quadrants. Abdomen soft and NT. : Cintron patent draining moderate amounts of clear, yellow urine. Vaginal introitus with small amounts of non-odorous cheesy, white discharge present with surrounding erythema. MSK: No bony gross/deformities throughout. ROM intact. EXTREMITIES: No edema, No peripheral cyanosis. Increased tone to BL lower ext. +3/5 MS in lower ext. DTRs 3+ Neuro: CN 2-12 grossly intact. No focal neuro deficits PSYCHIATRIC: Normal affect. Eye contact is good. Speech is normal rate and content. Responses are appropriate. Results & Data Results & Data Vital Signs (Past 12 Hours) Vital Signs Temp Pulse Resp BP Pulse Ox O2 Del Method 02/14/25 11:15 74 18 95 Room Air 02/14/25 08:07 Room Air 02/14/25 07:32 36.8 C 74 16 108/68 92 Room Air 02/14/25 07:24 78 16 93 Room Air Laboratory Results Labs reviewed: None PG Care Time/CCT Total # of Minutes Spent Total Time Spent with Patient: Total time spent is greater than 50% in coordination of care (as documented) at patient's floor/unit and/or counseling patient: Coding Level of Care Code 65560 SUB INP/OBS CARE 2/35MIN Diagnoses Catheter-associated urinary tract infection T83.511A; N39.0 Malfunction of Cintron catheter T83.011A COPD with emphysema J43.9 Neuromuscular disease G70.9 Paraplegia G82.20 Bipolar affective disorder in remission F31.70 Neoplasm of cranial nerve D49.7 Arachnoiditis of spine G03.9 GERD (gastroesophageal reflux disease) K21.9 Chronic narcotic dependence F11.20
[2025-02-14] MEDS: FLUCONAZOLE 50 MG TAB PO ONE (17:09)
[2025-02-14] MEDS: ERTAPENEM 1000MG 1,000 MG/10 ML SYR IV SCH (17:10)
[2025-02-14] MEDS: ENOXAPARIN INJ 40 MG/0.4 ML SYR SQ SCH (20:53)
[2025-02-14] MEDS: CHECK BUPRENORPHINE PATCH SCH (23:20)
[2025-02-15] MEDS: ONDANSETRON INJ 2 MG/ML 2 ML VIAL IV PRN (04:27)
[2025-02-15 07:00] LABS: Hematocrit (blood only) 37.3 % (37.0-47.0); Hemoglobin 12.4 g/dL (12.0-16.0); Immature Granulocytes # (auto) 0.01 K/uL (0.01-0.20); Immature Granulocytes % (auto) 0.2 %; Mean Corpuscular Hemoglobin 29.3 pg (25.0-34.0); Mean Corpuscular Volume 88.2 fL (80.0-100.0); Platelet Count 322 K/uL (130-400); RDW Standard Deviation 39.9 fL (36.4-46.3); Red Blood Count 4.23 M/uL (4.20-5.40); White Blood Count 5.08 K/ul (4.8-10.8)
[2025-02-15 07:33] LABS: Anion Gap 6.0 (3-11); Blood Urea Nitrogen 10.0 mg/dl (6-23); Calcium 9.1 mg/dl (8.6-10.3); Carbon Dioxide 27.0 mmol/L (21-32); Chloride 107.0 mmol/L (98-107); Creatinine Clr Calc Pharmacy 71.6 ml/min; Glucose 94.0 mg/dl (70-99(Fasting)); Potassium 4.2 mmol/L (3.5-5.1); Sodium 140.0 mmol/L (136-145)
[2025-02-15] MEDS: ACETAMINOPHEN 325 MG TAB PO PRN (09:12)
--- NOTE | 2025-02-15 13:28 | Hospitalist Progress Note ---
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 No discrete fevers. About 2 weeks ago was dx with an ESBL Klebsiella UTI and was prescribed a 7-day course of levaquin but she never took such. #catheter-associated UTI - - 01/30/25 urine cx with ESBL Klebsiella - was prescribed levaquin by [facility] but patient reports she never took it and came to ED d/t feeling more sick -+leaking Cintron, bladder spasms -with +ROS systemic symptoms (decreased PO intake, chills, sweats) -BC NGTD -IV ertapenem ordered by ER for ESBL Klebsiella -cintron catheter was malpositioned on CT a/p in ED with new catheter inserted -many of her bladder symptoms improved after a new cintron was placed -repeat u/a with no overt signs of infection -cont IV ertapenem, oral Levaquin on d/c ##uncomplicated vulvovaginal valdo -will treat based on external exam with +ROS -received 1 time dose of Diflucan 150mg 02/14 #cintron malposition - -as above -s/p removal of old cintron; new cintron placed #acquired paraplegia - -2nd to neuromuscular disorder vs myopathy; follows with Dr Jhonatan Quick, [facility], scheduled appointment in [place] for muscle biopsy -wheelchair-dependent at baseline #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 diff negative 02/14/25 DVT Proph: add Lovenox 40mg SQ Dispo: continued stay, probable d/c 02/16/25 Admission and Anticipated Discharge Date Admission Date: February 15, 2025 Subjective Reports she still has intermittent chills. Still with fleeting nausea. Appetite fair. Cintron draining moderate amounts of clear, yellow urine. States she feels comfortable staying in hospital for additional IV antibiotic therapy as she is still not feeling well today. Review of Systems Review of Systems: All systems reviewed & are unremarkable except as noted in Subjective Physical Exam Physical Exam: GENERAL APPEARANCE: A&O. Sitting comfortably in bed. NAD. SKIN: Normal color without rashes or lesions. Normal turgor. HEENT: Head AT/NC. Buccal mucosa is moist and pink. NECK: No jugular venous distention. No thyroid enlargement. There is no lymphadenopathy. HEART: RRR without m/g/r. LUNGS: Normal inspiratory effort. CTA without w/r/r. ABDOMEN: No guarding or rigidity. Normoactive BS in all four quadrants. Abdomen soft and NT. : Cintron patent draining moderate amounts of clear, yellow urine. Vaginal introitus with small amounts of non-odorous cheesy, white discharge present with surrounding erythema. MSK: No bony gross/deformities throughout. ROM intact. EXTREMITIES: No edema, No peripheral cyanosis. Increased tone to BL lower ext. +3/5 MS in lower ext. DTRs 3+ Neuro: CN 2-12 grossly intact. No focal neuro deficits PSYCHIATRIC: Normal affect. Eye contact is good. Speech is normal rate and content. Responses are appropriate. Results & Data Results & Data Vital Signs (Past 12 Hours) Vital Signs Temp Pulse Resp BP Pulse Ox O2 Del Method 02/15/25 11:12 78 18 96 Room Air 02/15/25 09:00 Room Air 02/15/25 07:52 36.8 C 75 16 107/68 98 Room Air 02/15/25 07:20 73 18 95 Room Air Laboratory Results Labs reviewed: CBC, BMP, C.diff PG Care Time/CCT Total # of Minutes Spent Total Time Spent with Patient: Total time spent is greater than 50% in coordination of care (as documented) at patient's floor/unit and/or counseling patient: Coding Level of Care Code 52730 SUB INP/OBS CARE 2/35MIN Diagnoses Catheter-associated urinary tract infection T83.511A; N39.0 Malfunction of Cintron catheter T83.011A COPD with emphysema J43.9 Neuromuscular disease G70.9 Paraplegia G82.20 Bipolar affective disorder in remission F31.70 Neoplasm of cranial nerve D49.7 Arachnoiditis of spine G03.9 GERD (gastroesophageal reflux disease) K21.9 Chronic narcotic dependence F11.20
--- NOTE | 2025-02-16 10:02 | Ultrasound Report ---
US retro bladder ltd HISTORY: 44 years-old Female check Moya position,leaking Moya COMPARISON: CT abdomen and pelvis 02/13/2025 TECHNIQUE: Multiple real-time sonographic images of the urinary bladder were obtained assessing nisha elder appearance and color flow FINDINGS: Decompressed bladder with Moya catheter in place. No mass or free pelvic fluid identified. IMPRESSION: Decompressed urinary bladder with Moya catheter in place. ACT 112: Negative or not required by law. The above report was generated using voice recognition software. It may contain grammatical, syntax o r spelling errors. Electronically signed by: Lionel Orona M.D. 02/16/2025 10:01 AM
--- NOTE | 2025-02-16 10:39 | Urology Consultation ---
Date of Consultation February 16, 2025 Assessment & Plan (1) Catheter-associated urinary tract infection: (2) Infection due to ESBL-producing Klebsiella pneumoniae: (3) Malfunction of Cintron catheter: 44-year-old female admitted for urinary tract infection due to ESBL Klebsiella. Workup in the ED included CT abdomen pelvis on 02/13 which demonstrated Cintron catheter was malpositioned within the urethra. Cintron catheter was removed and a new Cintron catheter was placed. Urology is consulted today for leaking Cintron catheter. Patient afebrile and hemodynamically stable Most recent labs (02/15/2025) reviewedcreatinine 0.8, no leukocytosis Urine culture from 01/30 with ESBL Klebsiella Blood cultures with no growth to date Bladder US today shows Cintron catheter within bladder Cintron catheter is patent and draining appropriately Suspect that leaking around catheter is due to bladder spasms She is not currently on medication for bladder spasms while inpatient Recommend trying Gemtesa for bladder spasms (previously tried oxybutynin, but had constipation) She has noted some blood in her depends, which may be from irritation/previously malpositioned catheter or other- keep catheter, monitor Continue with ertapenem while inpatient, can transition to Levaquin upon discharge as planned Continue supportive care and medical management per hospital medicine service Will arrange outpatient follow-up with our service Urology will sign off, please contact our service with any additional questions or concerns History of Present Illness Reason for Consultation: leaking cintron, malpositioned Attending Physician: Tea Cardenas MD History of Present Illness This is a 44-year-old female with history of progressive neuromuscular disorder who follows with urology for urinary retention, bladder spasms and recurrent urinary tract infections. She presented to the ED on 02/13/2025 for evaluation of leaking Cintron catheter, chills, nausea and bladder pain in setting of urinary tract infection. She was diagnosed with ESBL Klebsiella UTI and was given course of Levaquin as outpatient, but never started it. Workup in ED included CT abdomen and pelvis which demonstrated malposition of her Cintron catheter with the tip of the catheter and balloon within the urethra. The catheter was removed and new catheter was placed. Patient was started on IV Ertapenem for ESBL Klebsiella. Urology is consulted for leaking Cintron, malposition. Labs from 02/15/2025 reviewedcreatinine 0.98, WBC 5.08, hemoglobin 12.4. Blood cultures with no growth to date. Bladder ultrasound 02/16/2025 shows decompressed urinary bladder with Cintron catheter in place. Patient seen and examined at bedside. She reports she is overall feeling better since arrival. She notes some intermittent chills and nausea. She reports some bladder discomfort/cramping and leakage around Cintron catheter. She has noted some blood in her depends. She was treated with Diflucan for Cristy. Cintron patent and draining appropriately. Allergies Allergy/AdvReac Type Severity Reaction Status Date / Time Penicillins Allergy Intermediate Hives Verified 02/05/25 14:27 Home Medications Medication Instructions Recorded Confirmed Type pregabalin 150 mg capsule 150 mg PO TID 10/11/24 02/13/25 History omeprazole 40 mg capsule,delayed 40 mg PO BID 11/19/24 02/13/25 History release conjugated estrogens 0.625 mg/gram 0.3125 mg topical .COMPLEX #30 12/08/24 02/13/25 Rx vaginal cream (Premarin) grams Adult Briefs #200 ea 12/26/24 01/30/25 Rx Bedside Commode #1 ea 12/26/24 01/30/25 Rx Grab Bar, Wall Mounted #1 ea 12/26/24 01/30/25 Rx Incontinence pad #200 ea 12/26/24 01/30/25 Rx Nitrile gloves #200 ea 12/26/24 01/30/25 Rx Over the Bed table #1 ea 12/26/24 01/30/25 Rx Perineal Cleansing wipes #12 ea 12/26/24 02/13/25 Rx Trapeze [place] #1 ea 12/26/24 02/13/25 Rx Underpad, Disposable #200 ea 12/26/24 02/13/25 Rx food supplemt, lactose-reduced 15 ea PO TID #1,422 mL 12/26/24 02/13/25 Rx (Ensure Original oral liquid) Flutter Valve #1 ea 12/29/24 01/30/25 Rx albuterol sulfate 90 mcg/actuation 2 puff inhalation Q4H PRN Wheezing 12/29/24 02/13/25 Rx aerosol inhaler #8.5 grams budesonide 160 mcg-glycopyr 9 2 inh inhalation BID #10.7 grams 12/29/24 02/13/25 Rx mcg-formot 4.8 mcg/actuation HFA inhaler (Breztri Aerosphere) zolpidem 5 mg tablet 5 mg PO ONCE PRN sleep #2 tabs 12/29/24 02/13/25 Rx sennosides 8.6 mg-docusate sodium 1 tab PO QAM 30 days #30 tabs 12/31/24 02/13/25 Rx 50 mg tablet (Senokot-S) lidocaine 5 % topical patch 1 patch transdermal QAM #30 ea 01/16/25 02/13/25 Rx baclofen 10 mg tablet 10 mg PO TID PRN muscle spasm 30 01/19/25 02/13/25 Rx days #90 tabs buspirone 5 mg tablet 5 mg PO BID #60 tabs 01/19/25 02/13/25 Rx mirtazapine 15 mg tablet 15 mg PO HS depression 1 month #30 01/19/25 02/13/25 Rx tabs nitrofurantoin 100 mg PO DAILY 90 days #90 caps 02/02/25 02/13/25 Rx monohydrate/macrocrystals 100 mg capsule (Macrobid) duloxetine 30 mg capsule,delayed 30 mg PO QAM 02/03/25 02/13/25 History release nystatin 100,000 unit/gram topical 1 applic topical TID PRN . 02/03/25 02/13/25 History powder buprenorphine 10 mcg/hour weekly 1 patch transdermal Q7D 02/09/25 02/13/25 Rx transdermal patch (Butrans) neuromuscular degen disease, severe pain 1 month #4 ea morphine 15 mg immediate release 7.5 mg (1/2 x 15 mg) PO Q6H PRN 02/09/25 02/13/25 Rx tablet breakthrough pain, severe 1 month #90 tabs ondansetron 4 mg disintegrating 4 mg PO Q6H PRN nausea and 02/09/25 02/13/25 Rx tablet vomiting 1 month #90 tabs Patient History Medical History Urinary retention indwelling cintron SOB (shortness of breath) at rest, follows with dr. 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 luz- uses electric wheelchair- will be seeing neurosurgeon in [place] may 2025 Heart problem "they told me i have scarring on my heart" pt states she will see cardio at [facility] on 02/09/25 Destiny has sleep study on 02/17/25 COPD with emphysema uses daily inhaler and rescue inhaler twice daily- gets sob at rest- follow with dr. lee, smokes < 5 cigs per day Ambulatory dysfunction uses motorized wheelchair Trauma in childhood Hiatal hernia Hepatitis unsure which one, says cleared on own- [facility] physician dr. ileana IBARRA (hyperlipidemia) Depression Surgical History History of surgery on right wrist (2010) fluid in joints S/P inguinal hernia repair right- as achild S/P x2 S/P tubal ligation S/P right oophorectomy (2018) open S/P laparoscopic hysterectomy (2017) RATLH-LSO Family History Other Prostate cancer Denies family history of Neuromuscular disorder Ovarian cancer Breast cancer Colorectal cancer Social History Smoking Status: Current every day smoker Tobacco Type: Cigarettes Age Started Using Tobacco: 11; Age Quit Using Tobacco: 0; packs per day: 1; Cigarettes Per Day: < 5 cigs per day; Second Hand Exposure: Yes; Do You Dip or Chew Tobacco: No; Tobacco Cessation Education Requested by Patient: No Hx Alcohol Use: No Hx Substance Use: Yes Last Used Substance: Just Prior to Arrival Last Used Substance Other:: This morning Substance Use Type Other:: Medical Marijuana and Oxycodone for pain Preferred Language: Arabic Communication Ability: Effective Finishing Department Supervisor Required: No Beliefs That Will Affect Care: None marital status: Single Current Living Situation: Family and Significant Other Current Living Situation Comment: lives with 2 children in [place] current occupational status: disabled How many Children do You have: 2 Other Information That Helps Us Care for You: No Feels Safe at Home: Yes Safety Concerns: Feels Safe At This Time Assistive Devices: Hospital Bed, Lift Chair, Raised Toilet Seat, Scooter/E lectric Scooter, Stair Lift and Wheelchair Review of Systems Constitutional: as per Subjective / HPI Genitourinary: as per Subjective / HPI Physical Exam Constitutional: no acute distress Respiratory: normal respiratory effort; no respiratory distress and no labored breathing Gastrointestinal (Abdomen): Inspection/Auscultation: abdomen normal to inspection Musculoskeletal: Head/Neck/Chest: normocephalic Neurologic: moves all extremities and awake Psychiatric: Orientation: alert and oriented x 3 Genitourinary: Cintron draining with light yellow urine Results & Data Vital Signs (Past 12 Hours) Vital Signs Temp Pulse Resp BP Pulse Ox O2 Del Method 02/16/25 08:52 36.5 C 71 12 122/81 97 Room Air 02/16/25 07:42 74 18 97 Room Air 02/16/25 07:20 Room Air PG Care Time/CCT Total # of Minutes Spent Total Time Spent with Patient: Total time spent is greater than 50% in coordination of care (as documented) at patient's floor/unit and/or counseling patient: Coding Level of Care Code 44785 IN/OBS CONSULT LVL 4,60M Diagnoses Catheter-associated urinary tract infection T83.511A; N39.0 Infection due to ESBL-producing Klebsiella pneumoniae A49.8; Z16.12 Malfunction of Cintron catheter T83.011A
[2025-02-16 15:28] VITALS: RESP 18
[2025-02-16] MEDS ORDERED: ALBUT/IPRATROP 3MG/0.5MG NEB 3 ML VIAL NEB PRN (15:37)
--- NOTE | 2025-02-16 15:38 | Hospitalist Progress Note ---
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 No discrete fevers. About 2 weeks ago was dx with an ESBL Klebsiella UTI and was prescribed a 7-day course of Levaquin but she never took such. #catheter-associated UTI - 01/30/25 urine cx with ESBL Klebsiella - was prescribed levaquin by [facility] but patient reports she never took it and came to ED d/t feeling more sick. She was found to have +leaking Cintron, bladder spasms and her Cintron catheter bulb was lodged in her urethra. Old Cintron was removed and a new Cintron catheter was placed in the ED. She still has some burning type spasm pains especially when trying to move her bowels. Repeat bladder scan on 02/16 shows Cintron is in correct position and bladder is decompressed. No leukocytosis or sepsis. Blood cultures remain no growth to date -Continue IV ertapenem but can switch to p.o. Levaquin to finish out a 7-day course on discharge -Start Gemtesa for bladder spasms - Appreciate urology consultation - Plan is for suprapubic catheter placement which cannot be done at this facility due to her malignant hyperthermia-referral to tertiary care made by urology and awaiting appointment #uncomplicated vulvovaginal valdo-received 1 time dose of Diflucan 150mg 02/14 #acquired paraplegia - -2nd to neuromuscular disorder vs myopathy; follows with Dr Jhonatan Quick, [facility] Neu[facility], scheduled appointment in [place] for muscle biopsy -wheelchair-dependent at baseline -Continue follow-up with neurology and neuromuscular specialist #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 diff negative 02/14/25. Diarrhea now resolved #Depression-no acute issues - Continue home mirtazapine, zolpidem for sleep, duloxetine, and BuSpar DVT Proph: Lovenox 40mg SQ Dispo: continued stay, likely discharge to home on 02/17 if bladder spasms improved Admission and Anticipated Discharge Date Admission Date: February 15, 2025 Subjective Patient continues to have pain in the suprapubic region especially with trying to move her bowels. It feels like a burning type pain. I discussed her case with urology nurse practitioner. Patient is moving her bowels. Discussed the results of her bladder ultrasound. Physical Exam Constitutional: WD/WN, vitals as above Respiratory: normal respiratory effort, lungs clear to auscultation Cardiovascular: RRR, no murmur, no edema Gastrointestinal (Abdomen): normal bowel sounds, soft, nontender, no hepatosplenomegaly Results & Data Results & Data Vital Signs (Past 12 Hours) Vital Signs Temp Pulse Resp BP BP Pulse Ox O2 Del Method 02/16/25 15:27 36.7 C 78 18 134/87 95 Room Air 02/16/25 15:26 96 H 15 95 Room Air 02/16/25 11:55 73 16 97 Room Air 02/16/25 08:52 36.5 C 71 12 122/81 97 Room Air 02/16/25 07:42 74 18 97 Room Air 02/16/25 07:20 Room Air FiO2 02/16/25 15:27 02/16/25 15:26 21 02/16/25 11:55 02/16/25 08:52 02/16/25 07:42 02/16/25 07:20 Diagnostic Findings Bladder Ultrasound 02/16/25 08:54 US retro bladder ltd HISTORY: 44 years-old Female check Cintron position,leaking Cintron COMPARISON: CT abdomen and pelvis 02/13/2025 TECHNIQUE: Multiple real-time sonographic images of the urinary bladder were obtained assessing grayscale appearance and color flow FINDINGS: Decompressed bladder with Cintron catheter in place. No mass or free pelvic fluid identified. IMPRESSION: Decompressed urinary bladder with Cintron catheter in place. ACT 112: Negative or not required by law. The above report was generated using voice recognition software. It may contain grammatical, syntax or spelling errors. Electronically signed by: Lionel Orona M.D. 02/16/2025 10:01 AM PG Care Time/CCT Total # of Minutes Spent Total Time Spent with Patient: Total time spent is greater than 50% in coordination of care (as documented) at patient's floor/unit and/or counseling patient: Coding Level of Care Code 74345 SUB INP/OBS CARE 2/35MIN Diagnoses Catheter-associated urinary tract infection T83.511A; N39.0 Malfunction of Cintron catheter T83.011A Neuromuscular disease G70.9 Chronic narcotic dependence F11.20
[2025-02-16] MEDS: VIBEGRON 75 MG TAB PO SCH (17:03)
[2025-02-17 08:00] VITALS: O2SAT 95
[2025-02-17] MEDS ORDERED: POLYETHYLENE (MIRALAX) 17 GM PACK PO PRN (12:56)
--- NOTE | 2025-02-17 14:42 | Communication Note ---
Date of Service: February 17, 2025 [facility] Med Brief Note Josseline is known to me from OP clinic and contacted me asking for me to come visit her during thi admission She is seen bedside together with her She reports having issues with UTI and now her catheter is displaced as well She states she sought eval for poss UTI then was told with catheter issues to come to ER and get IV Abtx not to start oral meds She has [facility] appt with [facility] in AUGUST 2025 and states she is unsure why they are making her wait so long for this appt. Pulm eval done, needs sitting and lying PFTs next visit noc ox was done by [facility] but no results were sent to my office -we will track down She needs her daily miralax for constipation mgt, ordered today. She has established with her new PCP and is very pleased with their rapport and feels he is earnestly engaging in her care. Thank you for allowing us to participate in the ongoing care of this patient. Please page with any additional concerns. Inés Prater DNP Director, Palliative Medicine
[2025-02-17 15:31] VITALS: BP 121/75; PULSE 78; TEMP 98.2
--- NOTE | 2025-02-17 17:16 | Discharge Summary ---
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 No discrete fevers. About 2 weeks ago was dx with an ESBL Klebsiella UTI and was prescribed a 7-day course of Levaquin but she never took such. #catheter-associated UTI - 01/30/25 urine cx with ESBL Klebsiella - was prescribed levaquin by [facility] but patient reports she never took it and came to ED d/t feeling more sick. She was found to have +leaking Ramos, bladder spasms and her Ramos catheter bulb was lodged in her urethra. Old Ramos was removed and a new Ramos catheter was placed in the ED. She still has some burning type spasm pains especially when trying to move her bowels. Repeat bladder scan on 02/16 shows Ramos is in correct position and bladder is decompressed. No leukocytosis or sepsis. Blood cultures remain no growth to date. Suspect pain is mostly external and related to bladder spasms secondary to urethral injury. Patient questions if she has a latex allergy as she does have reactions to certain adhesives. We exchanged her Ramos catheter a second time during her admission with a latex free Ramos catheter -Received 5 doses of IV ertapenem but can switch to p.o. Levaquin to finish out a 7-day course on discharge -Started Gemtesa for bladder spasms-discontinue tolterodine recently started - Use barrier cream around labia for irritation - Appreciate urology consultation - Plan is for suprapubic catheter placement which cannot be done at this facility due to her malignant hyperthermia-referral to tertiary care made by urology and awaiting appointment #uncomplicated vulvovaginal valdo-received 1 time dose of Diflucan 150mg 02/14 and will send home with clotrimazole vaginal suppositories x 7 days #acquired paraplegia - -2nd to neuromuscular disorder vs myopathy; follows with Dr Jhonatan Quick, 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- -baclofen 10mg TID for muscle spasms -cont duloxetine daily -cont lyrica TID -minced moist diet, mildly thick nectar liquids #tobacco use/COPD- -Albuterol as needed -cont home inhalers - Encourage smoking cessation #GERD - -Continue PPI twice daily #chronic pain syndrome -related to her neuromuscular disorder -cont butrans patch 10mcg- -cont morphine IR - 7.5mg prn for mild/mod pain; 15mg prn for severe pain - Follows with palliative medicine for pain management-has an appointment on 02/19 #Abnormal distal colon on CT, diarrhea - -just had colonoscopy on 02/05- colonoscopy was normal except for hemorrhoids -C. diff negative 02/14/25. Diarrhea now resolved. 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 No discrete fevers. About 2 weeks ago was dx with an ESBL Klebsiella UTI and was prescribed a 7-day course of levaquin but she never took such. During her ER work-up she underwent CT abdomen/pelvis showing incorrect placement of her ramos catheter with the tip of the catheter & the balloon lodged in the urethra rather than bladder. She has had this ramos for about 2 weeks to her recollection. The old catheter was removed, and a new ramos was inserted with immediate return of 400cc of clear yellow urine. She did report improvement in her bladder pain/pressure/spasm following ramos exchange. Discharge Exam Constitutional WD/WN, vitals as above Respiratory normal respiratory effort, lungs clear to auscultation Cardiovascular RRR, no murmur, no edema Gastrointestinal (Abdomen) normal bowel sounds, soft, nontender, no hepatosplenomegaly Genitourinary Mild erythema around labia minora and periurethral area, some scant yellow vaginal discharge noted Discharge Plan Discharge Items Patient Disposition: Home - Home Health Services Reason For Visit: RAMOS-CATHETER ASSOCIATED UTI Discharge Diagnosis: Dislodged Ramos catheter UTI Condition on Discharge: Fair Activity: Resume your previous activity Non-emergency contact: Primary Care Provider and Urologist Call non-emergency contact if: you have any medication questions, your symptoms worsen and your pain is not controlled Follow-up/Referrals: Royer Schofield DO [Primary Care Provider] - (Follow-up within 1-2 weeks after discharge) Diet: Regular Diet Texture: Easy to Chew Liquid Consistency: Pooler thick Addtl Attending Provider Instructions: Please finish out 2 more days of the antibiotic that you already have at home called levofloxacin to be taken once daily in the evening. Your Ramos catheter was exchanged after being found to be lodged in your urethra. You are having pain likely from trauma to the urethra. You were treated for a yeast infection with a pill called fluconazole and also will be given a prescription for clotrimazole intravaginal suppositories. You can use diaper or barrier cream externally around the catheter to help with the pain and irritation from the catheter. You have been referred to have a suprapubic catheter placed at a tertiary care facility like [facility]. Urology from [facility] made this referral. If you have not heard anything about scheduling this appointment within the next week, please call your urologist to check on the status of this. You were started on a medication to help with bladder spasms called Gemtesa. This will replace the new prescription you recently started called tolterodine. It was a pleasure taking care of you! If you have any questions about your care before your hospital follow-up visit with your primary care provider, please call [phone] and ask to be transferred to the [facility] Medicine office. Sincerely, Tea Cardenas M.D. Pending Studies at Discharge: No Stand-Alone Forms: My [facility], Smoking Cessation Medications and DC Order Prescriptions: New clotrimazole 1 % Cream 1 applic vaginal HS Qty: 45 0RF Gemtesa 75 mg Tablet 75 mg PO DAILY Qty: 30 0RF Continued (DME) Adult Briefs XL See Rx Instructions .Route .MEDSUPPLY Qty: 200 3RF Rx Instructions: As directed (DME) Trapeze [place] See Rx Instructions .Route .MEDSUPPLY Qty: 1 0RF Rx Instructions: As directed (DME) Incontinence pad See Rx Instructions .Route .MEDSUPPLY Qty: 200 3RF Rx Instructions: As directed (DME) Bedside Commode See Rx Instructions .Route .MEDSUPPLY Qty: 1 0RF Rx Instructions: As directed (DME) Over the Bed table See Rx Instructions .Route .MEDSUPPLY Qty: 1 0RF Rx Instructions: As directed (DME) Perineal Cleansing wipes See Rx Instructions .Route .MEDSUPPLY Qty: 12 3RF Rx Instructions: As directed (DME) Underpad, Disposable See Rx Instructions .Route .MEDSUPPLY Qty: 200 3RF Rx Instructions: As directed (DME) Grab Bar, Wall Mounted See Rx Instructions .Route .MEDSUPPLY Qty: 1 0RF Rx Instructions: As directed (DME) Nitrile gloves See Rx Instructions .Route .MEDSUPPLY Qty: 200 0RF Rx Instructions: As directed Ensure Original Liquid 15 ea PO TID Qty: 1422 3RF sennosides-docusate sodium [Senokot-S] 8.6-50 mg tablet 1 tab PO QAM 30 Days Qty: 30 3RF lidocaine 5 % adhesive patch,medicated 1 patch transdermal QAM Qty: 30 0RF baclofen 10 mg tablet 10 mg PO TID PRN (Reason: muscle spasm) 30 Days Qty: 90 1RF mirtazapine 15 mg tablet 15 mg PO HS 30 Days Qty: 30 1RF buspirone 5 mg tablet 5 mg PO BID Qty: 60 3RF buprenorphine [Butrans] 10 mcg/hour patch weekly 1 patch transdermal Q7D 30 Days Qty: 4 0RF morphine 15 mg tablet 7.5 mg PO Q6H PRN (Reason: breakthrough pain, severe) 30 Days Qty: 90 0RF ondansetron 4 mg tablet,disintegrating 4 mg PO Q6H PRN (Reason: nausea and vomiting) 30 Days Qty: 90 1RF Premarin 0.625 mg/gram cream 0.3125 mg topical .COMPLEX Qty: 30 0RF Rx Instructions: apply 0.5g nightly x 2 weeks, then 2x/wk albuterol sulfate 90 mcg/actuation HFA aerosol inhaler 2 puff inhalation Q4H PRN (Reason: Wheezing) Qty: 8.5 3RF Breztri Aerosphere 160-9-4.8 mcg/actuation HFA aerosol inhaler 2 inh inhalation BID Qty: 10.7 2RF zolpidem 5 mg tablet 5 mg PO ONCE PRN (Reason: sleep) Qty: 2 0RF Rx Instructions: Take 1 tab on the night of sleep study (DME) Flutter Valve Device See Rx Instructions .MEDSUPPLY Qty: 1 0RF Rx Instructions: Use it every 6 hours when awake. nystatin 100,000 unit/gram powder 1 applic topical TID PRN (Reason: .) duloxetine 30 mg capsule,delayed release(DR/EC) 30 mg PO QAM omeprazole 40 mg capsule,delayed release(DR/EC) 40 mg PO BID pregabalin 150 mg capsule 150 mg PO TID Held nitrofurantoin monohyd/m-cryst [Macrobid] 100 mg capsule 100 mg PO DAILY 90 Days Qty: 90 0RF Hold Instructions: Resume on 02/20/25. Rx Instructions: must administer with a meal/food, antibiotic suppression for recurrent UTI, start after current course Levaquin completed (02/09) Discharge Orders: Discharge Order (Routine); Ordered 02/17/25 Ordered By: Tea Cardenas Admission Data Admit Date/Time: 02/15/25 11:36 Attending Provider: Tea Cardenas Admit Provider: Johnny Valerio Primary Care Provider: Royer Schofield Other Providers: Johnny Valerio; Ralph Hanks Hospital Stay Data Consultations 02/13/25 18:04 ED Decision to Admit Stat 02/16/25 08:17 Consult Urology Routine Diagnostic Imagining Performed 02/13/25 16:13 CT abd pelvis IV con only Stat 02/16/25 08:54 US Bladder and Retroperitoneal [US retro bladder ltd] Stat Pending Results Patient Have Any Pending Studies at Discharge: No Discharge Instructions Given to Patient (Per Discharging Provider) Please finish out 2 more days of the antibiotic that you already have at home called levofloxacin to be taken once daily in the evening. Your Ramos catheter was exchanged after being found to be lodged in your urethra. You are having pain likely from trauma to the urethra. You were treated for a yeast infection with a pill called fluconazole and also will be given a prescription for clotrimazole intravaginal suppositories. You can use diaper or barrier cream externally around the catheter to help with the pain and irritation from the catheter. You have been referred to have a suprapubic catheter placed at a tertiary care facility like [facility]. Urology from [facility] made this referral. If you have not heard anything about scheduling this appointment within the next week, please call your urologist to check on the status of this. You were started on a medication to help with bladder spasms called Gemtesa. This will replace the new prescription you recently started called tolterodine. It was a pleasure taking care of you! If you have any questions about your care before your hospital follow-up visit with your primary care provider, please call [phone] and ask to be transferred to the [facility] Hospitalist Medicine office. Sincerely, Tea Cardenas M.D. Total Time Total Time Spent Total Time Spent (In Minutes): 35 minutes Total Time Includes: Examination of the Patient, Discharge Planning, Medication Reconciliation and Communication With Other Providers (Palliative medicine) Coding Level of Care Code 54444 INP/OBS DISCH >30 MIN Diagnoses Catheter-associated urinary tract infection T83.511A; N39.0 Malfunction of Ramos catheter T83.011A Neuromuscular disease G70.9 Chronic narcotic dependence F11.20
[2025-02-17] MEDS: CLOTRIMAZOLE VAGINAL CR 7 APPLN/45 GM TUBE PV SCH (18:04)
== END 2025-02-17 18:17 | disposition home health service (06) | DRG 699 ==
LOC: ED 15:57 → 3W 15:57 → SUATTDRO 19:15 → 3W 21:22 → SUATTDRO 02-15 11:36 → 3E 02-15 18:39

== ENCOUNTER 2025-03-04 11:50 | Inpatient (IN) ==
[2025-03-04 13:01] LABS: Hematocrit (blood only) 46.9 % (37.0-47.0); Hemoglobin 15.6 g/dL (12.0-16.0); Immature Granulocytes # (auto) 0.03 K/uL (0.01-0.20); Immature Granulocytes % (auto) 0.3 %; Mean Corpuscular Hemoglobin 28.6 pg (25.0-34.0); Mean Corpuscular Volume 85.9 fL (80.0-100.0); Platelet Count 433 K/uL (130-400); RDW Standard Deviation 39.3 fL (36.4-46.3); Red Blood Count 5.46 M/uL (4.20-5.40); White Blood Count 9.25 K/ul (4.8-10.8)
[2025-03-04 13:22] LABS: Alanine Aminotransferase 23 U/L (7-52); Albumin Globulin Ratio 1.3 (0.9-2); Albumin Level 4.8 gm/dl (3.4-5.0); Alkaline Phosphatase 123 U/L (34-104); Anion Gap 9 (3-11); Bilirubin,Total 0.4 mg/dl (0.2-1.0); Blood Urea Nitrogen 16 mg/dl (6-23); Calcium 10.4 mg/dl (8.6-10.3); Carbon Dioxide 25 mmol/L (21-32); Chloride 103 mmol/L (98-107); Globulin 3.6 gm/dl (2.5-4.0); Glucose 126 mg/dl (70-99(Fasting)); Lipase 19 U/L (11-82); Potassium 4.0 mmol/L (3.5-5.1); Sodium 137 mmol/L (136-145); Total Protein 8.4 gm/dl (6.0-8.3)
[2025-03-04] MEDS: OPTIRAY 320 100ml IV ONE (13:45)
[2025-03-04] MEDS: SODIUM CHLORIDE 0.9% 1,000 ML IV ONE (13:59)
[2025-03-04] MEDS: ACETAMINOPHEN 1,000 MG/100 ML VIAL IV STA (13:59)
[2025-03-04] MEDS: ONDANSETRON INJ 2 MG/ML 2 ML VIAL IV STA (13:59)
--- NOTE | 2025-03-04 14:01 | CT Scan Report ---
CT SCAN OF THE ABDOMEN AND PELVIS WITH IV CONTRAST CLINICAL HISTORY: Generalized abdominal pain. COMPARISON STUDY: Abdominal CT dated 02/13/2025. TECHNIQUE: Following the IV administration of 94 cc of Optiray 320, CT scan of the abdomen and pelvi s is performed from the lung bases to the proximal femora. Images are reviewed in the axial, sagittal , and coronal planes. IV contrast was administered without complication. A dose lowering technique wa s utilized adhering to the principles of ALARA. CT DOSE: 1261.61 mGy.cm FINDINGS: Lung bases: The heart is normal in size and without pericardial effusion. There are tiny calcified gr anulomas. The lung bases are otherwise clear noting dependent atelectasis. Liver: The contrast-enhanced liver is normal in size, contour, and attenuation. Mild fatty infiltrati on is seen adjacent to the falciform ligament. There is no intrahepatic biliary ductal dilatation. Th e hepatic veins and portal veins are patent. Gallbladder: Unremarkable. Spleen: Normal in size and attenuation. Pancreas: Unremarkable. Adrenal glands: Unremarkable. Kidneys: The contrast enhanced kidneys are normal in size and without hydronephrosis. The kidneys enh ance symmetrically. Abdominal vasculature: The abdominal aorta is normal in course and caliber noting mild but age advanc ed atherosclerotic calcification. Bowel: There is mild to moderate colonic fecal retention. No bowel obstruction is seen. The appendix is well-visualized and normal. Peritoneum: There is no intraperitoneal free air or abdominal ascites. There is a fat-containing umbi lical hernia. Lymphadenopathy: None. Pelvic viscera: The bladder is partially decompressed around a Moya catheter. The bladder wall is th ickened with mucosal hyperemia and mild surrounding infiltration. The uterus is surgically absent. No adnexal lesion is seen. Skeletal structures: No lytic or blastic lesions are seen. There is severe disc space narrowing with endplate sclerosis and a posterior disc osteophyte complex at L5-S1. IMPRESSION: There is evidence of cystitis. Correlate with clinical findings and urinalysis. ACT 112: Negative or not required by law. Electronically signed by: Guru Chapman M.D. 03/04/2025 1:58 PM
--- NOTE | 2025-03-04 14:25 | Emergency Department Note ---
Impression & Plan History of ESBL E. coli infection, Urinary tract infection ED Provider Note CHIEF COMPLAINT: UTI HISTORY OF PRESENTING ILLNESS: Patient is a 44-year-old female presents to the emergency department today for complaints of fevers that she is correlating with another UTI. Patient has an indwelling Cintron catheter and reports continuous UTIs. Usually after 4 to 5 days of completing an antibiotic if she begins with symptoms again. She is also reporting upper respiratory symptoms such as congestion, cough that is sometimes productive. She has been using Tylenol for fevers and has not take any since this morning. She does report associated nausea without vomiting. She states that she did call Dr. Hanks of urology who referred her to the emergency department for admission to likely have a suprapubic catheter placed sooner than the that she has scheduled. Patient denies chest pain, sob, headache, hematuria, hematochezia, melena. REVIEW OF SYSTEMS: See HPI for pertinent positives and pertinent negatives. ALLERGIES: See below MEDICATIONS: See below PAST MEDICAL HISTORY: See below PHYSICAL EXAM: VITALS: Vitals are noted on the nurse's note and reviewed by myself. GENERAL: Non toxic, in no acute distress, non-diaphoretic. SKIN: Capillary refill <2 sec. EYES: PERRLA. EOMI. Conjunctivae without injection, sclerae without icterus. NOSE: Patent without discharge. MOUTH: Mucous membranes moist. Uvula midline. Airway patent. NECK: Supple without nuchal rigidity. HEART: Regular rate and rhythm without murmurs gallops or rubs. LUNGS: Clear to auscultation bilaterally without wheezes, rales or rhonchi. No retractions or accessory muscle use. ABDOMEN: Positive bowel sounds x 4. Normal tympanic percussion. Soft, tender to palpation in bilateral lower quadrants. No masses or hepatosplenomegaly. John sign negative. No CVA tenderness. No guarding, rigidity, or rebound tenderness. No focal RLQ or LLQ tenderness. MUSCULOSKELETAL: No gross musculoskeletal defects. NEURO: Patient was alert and oriented. No focal neurological deficits. DIFFERENTIAL DIAGNOSIS: Differential diagnosis includes UTI, bladder cancer, chlamydial genitourinary infection, cystitis, herpes simplex, interstitial cystitis, PID, pyelonephritis, urethritis, vaginitis, among others. Differential diagnosis includes: Viral infections, bacterial infections, group A strep- strep throat/pharyngitis, otitis media, sinusitis, epiglottitis, pertussis, allergic rhinitis, vasomotor rhinitis, GERD, mono, foreign body aspiration, among others. ED COURSE AND MEDICAL DECISION MAKING: HISTORY FROM INDEPENDENT HISTORIAN: History was provided by the patient and her daughter who is at bedside and secondary historian. MONITOR: Continuous court monitor: Order was placed for continuous court monitor. Patient was placed on the court monitor and continuous pulse ox. Patient was noted to be in normal sinus rhythm at an initial rate of 78 bpm per my interpretation. INTERPRETATION OF LABS: I interpreted the labs with full lab results as below in the lab section of this note. Laboratory results pertinent to the emergent complaint are discussed in the MDM section below. The patient was advised to follow up with their PCP and/or specialist(s) for further outpatient monitoring and management of any abnormal results. INTERPRETATION OF IMAGING: Imaging studies were interpreted by myself and read by radiology as per the imaging section of this note. The patient was advised to follow up with their PCP and/or specialist(s) for further outpatient management of any non-emergent abnormal findings. CHRONIC MEDICAL/SOCIAL CONDITIONS AFFECTING CARE: No social concerns were identified as barriers to patients care. ESCALATION OF CARE CONSIDERED: I considered admission on this patient due to likely U TI with ESBL and Dr. Hanks wanting to place a suprapubic catheter. CONSULTATIONS: I had a meaningful discussion about this patient with Dr. Ferreira who agrees with my assessment and the treatment plan. I also consulted with Dr. Valerio for admission and the patient was accepted. SUMMARY: I examined the patient for complaints of fever and UTI. A physical exam and history were performed. Nursing notes, EMR, and medication list were personally reviewed. Patient findings on history and exam consistent with a UTI. She also reports a productive cough and URI symptoms. Biofire was negative. Chest x-ray without acute findings. CBC showed no leukocytosis, anemia, thrombocytopenia. CMP without any emergent findings. Urinalysis was positive for nitrates. Patient's previous culture grew ESBL so we will treat with ertapenem. CT of the abdomen and pelvis did show evidence of cystitis. With the patient needing a suprapubic cath and the positive UTI I consulted with Dr. South for admission and the patient was accepted. DIAGNOSIS: UTI, ESBL likely TREATMENT PLAN/DISCHARGE INSTRUCTIONS: Admit to hospitalist services. The chart was completed utilizing Dragon Speech voice recognition software.Grammatical errors, random word insertions, pronoun errors, and incomplete sentences are an occasional consequence of this system due to software limitations, ambient noise, and hardware issues.Any formal questions or concerns about the content, text, or information contained within the body of this dictation should be directly addressed to the physician for clarification. Past Med/Surg History Problem List (Updated 03/04/25 @ 20:18 by CHRISTIAN Ramon) History of ESBL E. coli infection (Acute) Advanced care planning/counseling discussion Palliative care by specialist (Chronic) Urinary tract infection (Acute) Infection due to ESBL-producing Klebsiella pneumoniae (Acute) Catheter-associated urinary tract infection (Acute) Chronic narcotic dependence Paraplegia Encounter for pre-operative examination Change in bowel habits Abdominal pain Blood in stool Radicular pain of both lower extremities Shortness of breath Current smoker COPD with emphysema Incontinence Nocturnal hypoxemia COPD with asthma Severe back pain Neuromuscular disease Recurrent UTI Urinary retention Ambulatory dysfunction Post traumatic stress disorder (PTSD) Bipolar affective disorder in remission 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 luz- uses electric wheelchair- will be seeing neurosurgeon in [place] may 2025 Heart problem "they told me i have scarring on my heart" pt states she will see cardio at [facility] on 02/09/25 Destiny has sleep study on 02/17/25 COPD with emphysema uses daily inhaler and rescue inhaler twice daily- gets sob at rest- follow with dr. lee, smokes < 5 cigs per day Ambulatory dysfunction uses motorized wheelchair Trauma in childhood Hiatal hernia Hepatitis unsure which one, says cleared on own- [facility] physician dr. ileana IBARRA (hyperlipidemia) Depression Surgical History History of surgery on right wrist (2010) fluid in joints S/P inguinal hernia repair right- as achild S/P x2 S/P tubal ligation S/P right oophorectomy (2017) open S/P laparoscopic hysterectomy (2016) RATLH-LSO Family History Other Prostate cancer Denies family history of Neuromuscular disorder Ovarian cancer Breast cancer Colorectal cancer Social History Smoking Status: Current every day smoker Tobacco Type: Cigarettes Age Started Using Tobacco: 11; Age Quit Using Tobacco: 0; packs per day: 1; Cigarettes Per Day: < 5 cigs per day; Second Hand Exposure: Yes; Do You Dip or Chew Tobacco: No; Hx Alcohol Use: No Hx Substance Use: Yes Last Used Substance: Just Prior to Arrival Last Used Substance Other:: This morning Substance Use Type Other:: Medical Marijuana and Oxycodone for pain Preferred Language: Bhutanese Communication Ability: Effective Tobacco Sweeper Required: No Beliefs That Will Affect Care: None marital status: Single Current Living Situation: Family and Significant Other Current Living Situation Comment: lives with 2 children in [place] current occupational status: disabled How many Children do You have: 2 Feels Safe at Home: Yes Assistive Devices: Hospital Bed, Mechanical Lift, Scooter/Electric Scooter and Wheelchair Allergies Allergies Allergy/AdvReac Type Severity Reaction Status Date / Time Penicillins Allergy Intermediate Hives Verified 02/05/25 14:27 Home Meds Home Medications Medication Instructions Recorded Confirmed pregabalin 150 mg capsule 150 mg PO TID 10/11/24 03/04/25 duloxetine 30 mg capsule,delayed 30 mg PO QAM 02/03/25 03/04/25 release nystatin 100,000 unit/gram topical 1 applic topical TID PRN . 02/03/25 03/04/25 powder polyethylene glycol 3350 17 17 g PO BID 02/19/25 03/04/25 gram/dose oral powder (Miralax) Previous Rx's Medication Instructions Recorded conjugated estrogens 0.625 mg/gram 0.3125 mg topical .COMPLEX #30 12/08/24 vaginal cream (Premarin) grams Adult Briefs #200 ea 12/26/24 Bedside Commode #1 ea 12/26/24 Grab Bar, Wall Mounted #1 ea 12/26/24 Incontinence pad #200 ea 12/26/24 Nitrile gloves #200 ea 12/26/24 Over the Bed table #1 ea 12/26/24 Perineal Cleansing wipes #12 ea 12/26/24 Trapeze [place] #1 ea 12/26/24 Underpad, Disposable #200 ea 12/26/24 food supplemt, lactose-reduced 15 ea PO TID #1,422 mL 12/26/24 (Ensure Original oral liquid) Flutter Valve #1 ea 12/29/24 albuterol sulfate 90 mcg/actuation 2 puff inhalation Q4H PRN Wheezing 12/29/24 aerosol inhaler #8.5 grams budesonide 160 mcg-glycopyr 9 2 inh inhalation BID #10.7 grams 12/29/24 mcg-formot 4.8 mcg/actuation HFA inhaler (Breztri Aerosphere) zolpidem 5 mg tablet 5 mg PO ONCE PRN sleep #2 tabs 12/29/24 sennosides 8.6 mg-docusate sodium 1 tab PO QAM 30 days #30 tabs 12/31/24 50 mg tablet (Senokot-S) lidocaine 5 % topical patch 1 patch transdermal QAM #30 ea 01/16/25 baclofen 10 mg tablet 10 mg PO TID PRN muscle spasm 30 01/19/25 days #90 tabs buspirone 5 mg tablet 5 mg PO BID #60 tabs 01/19/25 mirtazapine 15 mg tablet 15 mg PO HS depression 1 month #30 01/19/25 tabs nitrofurantoin 100 mg PO DAILY 90 days #90 caps 02/02/25 monohydrate/macrocrystals 100 mg capsule (Macrobid) buprenorphine 10 mcg/hour weekly 1 patch transdermal Q7D 02/09/25 transdermal patch (Butrans) neuromuscular degen disease, severe pain 1 month #4 ea ondansetron 4 mg disintegrating 4 mg PO Q6H PRN nausea and 02/09/25 tablet vomiting 1 month #90 tabs clotrimazole 1 % vaginal cream 1 applic vaginal HS #45 grams 02/17/25 vibegron 75 mg tablet (Gemtesa) 75 mg PO DAILY #30 tabs 02/17/25 morphine 15 mg immediate release 15 mg PO Q8H PRN breakthrough 02/19/25 tablet pain, severe 1 month #90 tabs omeprazole 40 mg capsule,delayed 40 mg PO BID #120 caps 02/19/25 release soluble corn fiber-inulin 1.7 gram 1 tab PO DAILY #30 tabs 02/19/25 chewable tablet (Metamucil (inulin-corn fiber)) levofloxacin 500 mg tablet 500 mg PO DAILY 10 days #10 tabs 03/03/25 Results & Data (ED) Vital Signs Vital Signs - 24 hr 03/04/25 11:53 03/04/25 12:48 03/04/25 13:00 Temperature 36.4 C L Temperature Source Temporal Artery Scan Pulse Rate 115 H 92 H 82 Pulse Rate [Apical] Pulse Rate from SpO2 Sensor 81 Respiratory Rate 18 13 Blood Pressure 141/106 H 129/85 Blood Pressure [Right Arm] Blood Pressure Mean 117 99 Blood Pressure Mean [Right Arm] Pulse Oximetry 96 95 Oxygen Delivery Method Room Air Sepsis New/Unexplained Change in Mental Status No Sepsis Action Taken by Nursing No Action Required 03/04/25 13:30 03/04/25 14:00 03/04/25 16:00 Temperature Temperature Source Pulse Rate 87 Pulse Rate [Apical] 78 72 Pulse Rate from SpO2 Sensor 92 H Respiratory Rate 11 L 18 18 Blood Pressure 139/108 H Blood Pressure [Right Arm] 131/87 114/64 Blood Pressure Mean 118 Blood Pressure Mean [Right Arm] 101 80 Pulse Oximetry 96 96 97 Oxygen Delivery Method Room Air Room Air Sepsis New/Unexplained Change in Mental Status Sepsis Action Taken by Nursing 03/04/25 16:49 03/04/25 17:30 03/04/25 17:42 Temperature Temperature Source Pulse Rate 72 68 Pulse Rate [Apical] 76 Pulse Rate from SpO2 Sensor 68 Respiratory Rate 16 19 Blood Pressure 117/76 Blood Pressure [Right Arm] 117/76 Blood Pressure Mean 89 Blood Pressure Mean [Right Arm] 89 Pulse Oximetry 97 94 Oxygen Delivery Method Room Air Sepsis New/Unexplained Change in Mental Status Sepsis Action Taken by Nursing 03/04/25 18:00 03/04/25 18:00 Temperature Temperature Source Pulse Rate 71 Pulse Rate [Apical] 83 Pulse Rate from SpO2 Sensor 69 Respiratory Rate 18 11 L Blood Pressure 110/82 Blood Pressure [Right Arm] 110/82 Blood Pressure Mean 91 Blood Pressure Mean [Right Arm] 91 Pulse Oximetry 97 95 Oxygen Delivery Method Room Air Sepsis New/Unexplained Change in Mental Status Sepsis Action Taken by Nursing Laboratory Data 03/04/25 12:26 03/04/25 12: Lab Results 03/04/25 03/04/25 03/04/25 Range/Units 12:26 14:05 15:25 WBC 9.25 (4.8-10.8) K/ul RBC 5.46 H (4.20-5.40) M/uL Hgb 15.6 (12.0-16.0) g/dL Hct 46.9 (37.0-47.0) % MCV 85.9 (80.0-100.0) fL MCH 28.6 (25.0-34.0) pg MCHC 33.3 (32.0-36.0) g/dL RDW Std Deviation 39.3 (36.4-46.3) fL RDW Coeff of María Elena 12.7 (11.5-14.5) % Plt Count 433 H (130-400) K/uL MPV 10.6 (9.4-12.4) fL Immature Gran % (Auto) 0.3 % Neut % (Auto) 67.6 % Lymph % (Auto) 23.7 % Gila % (Auto) 7.8 % Eos % (Auto) 0.4 % Baso % (Auto) 0.2 % Neut # (Auto) 6.25 (1.40-6.50) K/uL Lymph # (Auto) 2.19 (1.20-3.40) K/uL Gila # (Auto) 0.72 H (0.11-0.59) K/uL Eos # (Auto) 0.04 (0.00-0.50) K/uL Baso # (Auto) 0.02 (0.00-0.20) K/uL Immature Gran # (Auto) 0.03 (0.01-0.20) K/uL Sodium 137 (136-145) mmol/L Potassium 4.0 (3.5-5.1) mmol/L Chloride 103 (98-107) mmol/L Carbon Dioxide 25 (21-32) mmol/L Anion Gap 9 (3-11) BUN 16 (6-23) mg/dl Creatinine 1.04 (0.6-1.2) mg/dl Est Cr Clr Drug Dosing Not Reportable eGFR 67.97 BUN/Creatinine Ratio 15.4 (10-20) Glucose 126 H (70-99(Fasting)) mg/dl Calcium 10.4 H (8.6-10.3) mg/dl Total Bilirubin 0.4 (0.2-1.0) mg/dl AST 20 (13-39) U/L ALT 23 (7-52) U/L Alkaline Phosphatase 123 H (34-104) U/L Total Protein 8.4 H (6.0-8.3) gm/dl Albumin 4.8 (3.4-5.0) gm/dl Globulin 3.6 (2.5-4.0) gm/dl Albumin/Globulin Ratio 1.3 (0.9-2) Lipase 19 (11-82) U/L Urine Color Yellow Urine Appearance Clear (Clear) Urine pH 6.0 (4.5-7.5) Ur Specific [place] > 1.045 H (1.000-1.030) Urine Protein 1+ H (Negative) Urine Glucose (UA) Negative (Negative) Urine Ketones Negative (Negative) Urine Blood 1+ H (Negative) Urine Nitrite Positive A (Negative) Urine Bilirubin Negative (Negative) Urine Urobilinogen Negative (Negative) Ur Leukocyte Esterase Negative (Negative) Urine WBC (Auto) 21-50 H (0-5) /hpf Urine RBC (Auto) 6-10 H (0-2) /hpf U Hyaline Cast (Auto) 0-2 (0-2) /lpf U Epithel Cells (Auto) 0-2 (0-2) /hpf Urine Bacteria (Auto) 4+ H (None Seen) Urine Mucus Present A (None Prsent) Urine Comment Adenovirus (PCR) Not Detected (NotDetected) B. pertussis DNA (PCR) Not Detected (NotDetected) B.parapertussis DNA PCR Not Detected (NotDetected) C. pneumoniae DNA (PCR) Not Detected (NotDetected) Coronavirus OC43 (PCR) Not Detected (NotDetected) Coronavirus HKU1 (PCR) Not Detected (NotDetected) Coronavirus 229E (PCR) Not Detected (NotDetected) SARS-CoV-2 (PCR) Not Detected (NotDetected) Coronavirus NL63 (PCR) Not Detected (NotDetected) Human Metapneumovir PCR Not Detected (NotDetected) Influenza Type A (PCR) Not Detected (NotDetected) Influenza Type B (PCR) Not Detected (NotDetected) M. pneumoniae (PCR) Not Detected (NotDetected) Parainfluenza 1 (PCR) Not Detected (NotDetected) Parainfluenza 2 (PCR) Not Detected (NotDetected) Parainfluenza 3 (PCR) Not Detected (NotDetected) Parainfluenza 4 (PCR) Not Detected (NotDetected) RSV (PCR) Not Detected (NotDetected) Entero/Rhino (PCR) Not Detected (NotDetected) Administered Medications Discontinued Medications Acetaminophen (Ofirmev) 1,000 mg in 100 mls @ 400 mls/hr IV NOW STA Stop: 03/04/25 13:44 Last Infusion: 03/04/25 16:26 Dose: Infused Documented By: alejo Admin: 03/04/25 13:59 Dose: 400 mls/hr Documented By: alejo Sodium Chloride (Nss) 1,000 mls @ 999 mls/hr IV .Q1H1M ONE Stop: 03/04/25 14:30 Last Infusion: 03/04/25 17:20 Dose: Infused Documented By: c Admin: 03/04/25 13:59 Dose: 999 mls/hr Documented By: alejo Ertapenem (Invanz 1000mg) 1,000 mg in 10 mls @ 2 mls/min IV NOW STA Stop: 03/04/25 16:55 Last Admin: 03/04/25 17:01 Dose: 2 mls/min Documented By: CAP Ioversol (Optiray 320 100ml) 94 ml IV ONCE ONE Stop: 03/04/25 13:46 Last Admin: 03/04/25 13:45 Dose: 94 ml Documented By: LUCIAN Morphine Sulfate (Morphine Sulfate 4 Mg/Ml 1 Ml Carp\\Vial) 4 mg IV NOW STA Stop: 03/04/25 17:53 Last Admin: 03/04/25 18:21 Dose: 4 mg Documented By: alejo Ondansetron HCl (Ondansetron Inj 2 Mg/Ml 2 Ml Vial) 4 mg IV NOW STA Stop: 03/04/25 13:31 Last Admin: 03/04/25 13:59 Dose: 4 mg Documented By: alejo Imaging Data Radiologist's Impression: Abdomen/Pelvis CT 03/04/25 13:30 CT SCAN OF THE ABDOMEN AND PELVIS WITH IV CONTRAST CLINICAL HISTORY: Generalized abdominal pain. COMPARISON STUDY: Abdominal CT dated 02/13/2025. TECHNIQUE: Following the IV administration of 94 cc of Optiray 320, CT scan of the abdomen and pelvis is performed from the lung bases to the proximal femora. Images are reviewed in the axial, sagittal, and coronal planes. IV contrast was administered without complication. A dose lowering technique was utilized adhering to the principles of ALARA. CT DOSE: 1261.61 mGy.cm FINDINGS: Lung bases: The heart is normal in size and without pericardial effusion. There are tiny calcified granulomas. The lung bases are otherwise clear noting dependent atelectasis. Liver: The contrast-enhanced liver is normal in size, contour, and attenuation. Mild fatty infiltration is seen adjacent to the falciform ligament. There is no intrahepatic biliary ductal dilatation. The hepatic veins and portal veins are patent. Gallbladder: Unremarkable. Spleen: Normal in size and attenuation. Pancreas: Unremarkable. Adrenal glands: Unremarkable. Kidneys: The contrast enhanced kidneys are normal in size and without hydronephrosis. The kidneys enhance symmetrically. Abdominal vasculature: The abdominal aorta is normal in course and caliber noting mild but age advanced atherosclerotic calcification. Bowel: There is mild to moderate colonic fecal retention. No bowel obstruction is seen. The appendix is well-visualized and normal. Peritoneum: There is no intraperitoneal free air or abdominal ascites. There is a fat-containing umbilical hernia. Lymphadenopathy: None. Pelvic viscera: The bladder is partially decompressed around a Cintron catheter. The bladder wall is thickened with mucosal hyperemia and mild surrounding infiltration. The uterus is surgically absent. No adnexal lesion is seen. Skeletal structures: No lytic or blastic lesions are seen. There is severe disc space narrowing with endplate sclerosis and a posterior disc osteophyte complex at L5-S1. IMPRESSION: There is evidence of cystitis. Correlate with clinical findings and urinalysis. ACT 112: Negative or not required by law. Electronically signed by: Guru Chapman M.D. 03/04/2025 1:58 PM Chest X-Ray 03/04/25 13:30 XR chest 2V PA/lateral CLINICAL HISTORY: cough, fever COMPARISON STUDY: Chest CT February 10, 2025. Chest radiograph February 13, 2025. FINDINGS: Lung volumes are normal. Lungs are clear. There is no pneumothorax or pleural effusion. Cardiac size is normal. Mediastinal contours are normal. There is no evidence for pulmonary edema. IMPRESSION: No acute cardiopulmonary findings. ACT 112: Negative or not required by law. Electronically signed by: Travon Arnold M.D. 03/04/2025 2:41 PM Discharge Plan Visit Data Chief Complaint: Urinary Symptoms Stated Complaint: UTI ED Provider: Aleksandra Ferreira ED Midlevel Provider: Yelena Ridley Discharge Problem: History of ESBL E. coli infection, Urinary tract infection Patient Disposition: Admitted As Inpatient Condition: Good
--- NOTE | 2025-03-04 14:42 | XRay Report ---
XR chest 2V PA/lateral CLINICAL HISTORY: cough, fever COMPARISON STUDY: Chest CT February 10, 2025. Chest radiograph February 13, 2025. FINDINGS: Lung volumes are normal. Lungs are clear. There is no pneumothorax or pleural effusion. Car diac size is normal. Mediastinal contours are normal. There is no evidence for pulmonary edema. IMPRESSION: No acute cardiopulmonary findings. ACT 112: Negative or not required by law. Electronically signed by: Travon Arnold M.D. 03/04/2025 2:41 PM
[2025-03-04 15:08] LABS: Chlamydia pneumoniae PCR Not Detected (NotDetected); Coronavirus 229E PCR Not Detected (NotDetected); Coronavirus CoV-2 (COVID19)PCR Not Detected (NotDetected); Coronavirus HKU1 PCR Not Detected (NotDetected); Coronavirus NL63 PCR Not Detected (NotDetected); Coronavirus OC43PCR Not Detected (NotDetected); Human Metapneumovirus PCR Not Detected (NotDetected); Parainfluenza Virus 1 PCR Not Detected (NotDetected); Parainfluenza Virus 2 PCR Not Detected (NotDetected); Parainfluenza Virus 3 PCR Not Detected (NotDetected); Parainfluenza Virus 4 PCR Not Detected (NotDetected); Respiratory Syncytial VirusPCR Not Detected (NotDetected); Rhinovirus/Enterovirus PCR Not Detected (NotDetected)
[2025-03-04 16:32] LABS: Appearance Urine Clear (Clear); Bacteria Urine Automated 4+ (None Seen); Cast Urine Automated 0-2 /lpf (0-2); Epithelial Cell Urine Auto 0-2 /hpf (0-2); Glucose Urine UA Negative (Negative); WBC Urine Automated 21-50 /hpf (0-5)
[2025-03-04] MEDS: ERTAPENEM 1000MG 1,000 MG/10 ML SYR IV STA (17:01)
--- NOTE | 2025-03-04 17:53 | History & Physical Report ---
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 Recent hospitalization for ESBL Klebsiella UTI and discharged on 02/17/25. Suprapubic catheter placement was being planned for outpatient surgery on 03/11/25 after it was determined that it would be safe to have such surgery at [facility] and not needing tertiary care (Patient has RYR1 mutation which increases risk of malignant hyperthermia but ultimately deemed ok to have surgery here - see documentation from 03/04/25 from PHYLICIA Sweeney). #catheter-associated UTI - suspected - -given recent ESBL Klebsiella UTI patient was redosed with IV ertapenem in the ER today -will continue IV ertapenem upon admission -follow blood/urine cx's -other infectious work-up including CXR, respiratory biofire - all negative -due to diarrhea and frequent antibiotic exposure check a c diff #recent diagnosis of polyarticular arthritis - -on 02/25 was prescribed Plaquenil 400mg daily + methylprednisolone taper utilizing 4mg tabs (4 tabs QD x 1 week, 3 tabs QD x 1 week, and so forth) -I do not have documentation from that rheumatology visit -RA? MCTD? SLE? other? (RF and ESTEBAN negative via the [facility] system in 10/2024) -cont steroids - she is now on 12mg/day of methylprednisolone based on her taper -hold Plaquenil for now #chronic cintron catheter - -defer on exchanging it if she is going to have suprapubic catheter placed this admission -formal [facility] consult requested to determine timing of SP catheter surgery #acquired paraplegia - -2nd to neuromuscular disorder vs myopathy; follows with Dr Jhonatan Quick, [facility] -wheelchair-dependent at baseline -PT/OT while here #neuromuscular d/o vs myopathy - -she reports significant muscle spasms thus will schedule her baclofen 10mg TID -cont duloxetine daily -cont lyrica TID #tobacco use - -offer nicoderm patch -counseling 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 -I don't see any offending meds that would lead to hypercalcemia History of Present Illness Chief Complaint: fevers, hot/cold chills, vomiting, diarrhea Primary Care Provider: Royer Schofield, 44yo female with history of progressive neuromuscular disorder (vs myopathy) with resulting wheelchair-dependency / acquired paraplegia, lumbar arachnoiditis, chronic indwelling urinary catheter, ongoing tobacco use, COPD, recurrent UTIs, GERD, and chronic pain syndrome (on Butrans patch + morphine IR prn). Recently hospitalized from 02/13 to 02/17 at [facility] for ESBL Kle bsiella UTI treated with IV ertapenem, then upon discharge home was was asked to take 2 more days of PO levaquin at home. She was also given Gemtasa to take at home for bladder spasms. Ms Yañez reports she felt well "for a few days" and actually her main issue upon return were that of swollen joints. She saw rheumatology in [place] and, given polyarticular arthritis/swollen joints of both hands, was placed on "some sort of steroid." Pharmacy records reviewed. On 02/25 she was prescribed Plaquenil 400mg daily along with a methylprednisolone taper (4mg tabs, starting at 4 tabs QD x 1 week, then 3 tabs QD x 1 week, and so forth). Prescribing physician was Dr Mahendra Johnson. Although her joints are improved, she reports fevers for 3-4 days (was 101 F last pm), hot/cold chills, poor po intake, vomiting, and green liquid diarrhea. She is having abdominal pain & suprapubic pain. She reports issues with her cintron "slipping" but denies urethral pain. Denies sick contacts. She has been in touch with [facility] and there have been plans to have suprapubic catheter placed in the next week with the hopes this reduces the risk of recurrent UTIs. Allergies Allergy/AdvReac Type Severity Reaction Status Date / Time Penicillins Allergy Intermediate Hives Verified 02/05/25 14:27 Home Medications Medication Instructions Recorded Confirmed Type pregabalin 150 mg capsule 150 mg PO TID 10/11/24 03/04/25 History conjugated estrogens 0.625 mg/gram 0.3125 mg topical .COMPLEX #30 12/08/24 03/04/25 Rx vaginal cream (Premarin) grams Adult Briefs #200 ea 12/26/24 02/19/25 Rx Bedside Commode #1 ea 12/26/24 02/19/25 Rx Grab Bar, Wall Mounted #1 ea 12/26/24 02/19/25 Rx Incontinence pad #200 ea 12/26/24 02/19/25 Rx Nitrile gloves #200 ea 12/26/24 02/19/25 Rx Over the Bed table #1 ea 12/26/24 02/19/25 Rx Perineal Cleansing wipes #12 ea 12/26/24 02/19/25 Rx Trapeze [place] #1 ea 12/26/24 02/19/25 Rx Underpad, Disposable #200 ea 12/26/24 02/19/25 Rx food supplemt, lactose-reduced 15 ea PO TID #1,422 mL 12/26/24 03/04/25 Rx (Ensure Original oral liquid) Flutter Valve #1 ea 12/29/24 02/19/25 Rx albuterol sulfate 90 mcg/actuation 2 puff inhalation Q4H PRN Wheezing 12/29/24 03/04/25 Rx aerosol inhaler #8.5 grams budesonide 160 mcg-glycopyr 9 2 inh inhalation BID #10.7 grams 12/29/24 03/04/25 Rx mcg-formot 4.8 mcg/actuation HFA inhaler (Breztri Aerosphere) zolpidem 5 mg tablet 5 mg PO ONCE PRN sleep #2 tabs 12/29/24 03/04/25 Rx sennosides 8.6 mg-docusate sodium 1 tab PO QAM 30 days #30 tabs 12/31/24 03/04/25 Rx 50 mg tablet (Senokot-S) lidocaine 5 % topical patch 1 patch transdermal QAM #30 ea 01/16/25 03/04/25 Rx baclofen 10 mg tablet 10 mg PO TID PRN muscle spasm 30 01/19/25 03/04/25 Rx days #90 tabs buspirone 5 mg tablet 5 mg PO BID #60 tabs 01/19/25 03/04/25 Rx mirtazapine 15 mg tablet 15 mg PO HS depression 1 month #30 01/19/25 03/04/25 Rx tabs nitrofurantoin 100 mg PO DAILY 90 days #90 caps 02/02/25 03/04/25 Rx monohydrate/macrocrystals 100 mg capsule (Macrobid) duloxetine 30 mg capsule,delayed 30 mg PO QAM 02/03/25 03/04/25 History release nystatin 100,000 unit/gram topical 1 applic topical TID PRN . 02/03/25 03/04/25 History powder buprenorphine 10 mcg/hour weekly 1 patch transdermal Q7D 02/09/25 03/04/25 Rx transdermal patch (Butrans) neuromuscular degen disease, severe pain 1 month #4 ea ondansetron 4 mg disintegrating 4 mg PO Q6H PRN nausea and 02/09/25 03/04/25 Rx tablet vomiting 1 month #90 tabs clotrimazole 1 % vaginal cream 1 applic vaginal HS #45 grams 02/17/25 03/04/25 Rx vibegron 75 mg tablet (Gemtesa) 75 mg PO DAILY #30 tabs 02/17/25 03/04/25 Rx morphine 15 mg immediate release 15 mg PO Q8H PRN breakthrough 02/19/25 03/04/25 Rx tablet pain, severe 1 month #90 tabs omeprazole 40 mg capsule,delayed 40 mg PO BID #120 caps 02/19/25 03/04/25 Rx release polyethylene glycol 3350 17 17 g PO BID 02/19/25 03/04/25 History gram/dose oral powder (Miralax) soluble corn fiber-inulin 1.7 gram 1 tab PO DAILY #30 tabs 02/19/25 03/04/25 Rx chewable tablet (Metamucil (inulin-corn fiber)) levofloxacin 500 mg tablet 500 mg PO DAILY 10 days #10 tabs 03/03/25 03/04/25 Rx Past Med/Surg History Problem List (Updated 03/05/25 @ 03:21 by Johnny Valerio MD) Diarrhea Hypercalcemia Polyarticular arthritis History of ESBL E. coli infection (Acute) Advanced care planning/counseling discussion Palliative care by specialist (Chronic) Urinary tract infection (Acute) Infection due to ESBL-producing Klebsiella pneumoniae (Acute) Catheter-associated urinary tract infection (Acute) Chronic narcotic dependence Paraplegia Change in bowel habits Abdominal pain Blood in stool Radicular pain of both lower extremities Shortness of breath Current smoker COPD with emphysema Incontinence Nocturnal hypoxemia COPD with asthma Severe back pain Neuromuscular disease Recurrent UTI Urinary retention Ambulatory dysfunction Post traumatic stress disorder (PTSD) Bipolar affective disorder in remission 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 quick- uses electric wheelchair- will be seeing neurosurgeon in [place] may 2025 Heart problem "they told me i have scarring on my heart" pt states she will see cardio at [facility] on 02/09/25 Snores has sleep study on 02/17/25 COPD with emphysema uses daily inhaler and rescue inhaler twice daily- gets sob at rest- follow with dr. lee, smokes < 5 cigs per day Ambulatory dysfunction uses motorized wheelchair Trauma in childhood Hiatal hernia Hepatitis unsure which one, says cleared on own- [facility] physician dr. ileana IBARRA (hyperlipidemia) Depression Surgical History History of surgery on right wrist (2010) fluid in joints S/P inguinal hernia repair right- as achild S/P x2 S/P tubal ligation S/P right oophorectomy (2017) open S/P laparoscopic hysterectomy (2016) RAT-LSO Family History Other Prostate cancer Denies family history of Neuromuscular disorder Ovarian cancer Breast cancer Colorectal cancer Social History Smoking Status: Current every day smoker Tobacco Type: Cigarettes Age Started Using Tobacco: 11; Age Quit Using Tobacco: 0; packs per day: 1; Cigarettes Per Day: < 5 cigs per day; Second Hand Exposure: No; Do You Dip or Chew Tobacco: No; Tobacco Cessation Education Requested by Patient: No Hx Alcohol Use: No Hx Substance Use: Yes Last Used Substance: Days (ago) Last Used Substance Other:: This morning Substance Use Type Other:: Medical Marijuana and Oxycodone for pain Preferred Language: Upper Sorbian Communication Ability: Effective [place] Required: No Beliefs That Will Affect Care: None marital status: Single Current Living Situation: Family Current Living Situation Comment: lives with 2 children in [place] current occupational status: disabled How many Children do You have: 2 Other Information That Helps Us Care for You: No Feels Safe at Home: Yes Safety Concerns: Feels Safe At This Time Assistive Devices: Wheelchair Review of Systems Review of Systems: gen - fevers to 101 degrees x 3-4 days; hot/cold chills & sweats x 3-4 days; PO intake poor eyes - no ocular symptoms HENT - no URI symptoms CV - no chest tightness or chest pain; no edema pulm - no cough, no dyspnea at rest GI - nausea with vomiting of thick mucous; mild suprapubic discomfort and upper abd pain - some bladder pain, bladder spasm; no hematuria musculo - myalgias/aches "everywhere"; muscle weakness of legs - chronic; recent joint pains of b/l hands neuro - prox muscle weakness; daily frontal headaches endo - no diabetes but reports pre-DM skin - no rash Physical Exam Physical Exam: gen - resting comfortably in bed, NAD, awake, alert eyes - PERRL HENT - mouth with MMM, no lesions neck - no JVD, no goiter, no lymph nodes heart - RRR, s1 s2, no murmur lungs - CTA b/l; no rales, no increased work of breathing abd - soft ND BS+, no HSM; tender epigastric region and suprapubic region ext - no edema, pulses 2+ b/l feet neuro - increased tone b/l LEs - LLE>RLE; prox muscle weakness shoulder region and hip region - worst in the LLE; ankle clonus b/l; DTRs brisk b/l; no facial droop skin - no rash psych - a/o x 3 - cintron in place, clear yellow urine in bag musculo - no synovitis of any joint of hand or wrist Results & Data Results & Data Vital Signs (Past 12 Hours) Vital Signs Temp Pulse Pulse Resp BP BP Pulse Ox 03/04/25 16:00 72 18 114/64 97 03/04/25 14:00 78 18 131/87 96 03/04/25 13:30 87 11 L 139/108 H 96 03/04/25 13:00 82 13 129/85 95 03/04/25 12:48 92 H 03/04/25 11:53 36.4 C L 115 H 18 141/106 H 96 O2 Del Method 03/04/25 16:00 Room Air 03/04/25 14:00 Room Air 03/04/25 13:30 03/04/25 13:00 03/04/25 12:48 03/04/25 11:53 Room Air Laboratory Results Laboratory Results - last 24 hr 03/04/25 03/04/25 03/04/25 12:26 14:05 15:25 WBC 9.25 RBC 5.46 H Hgb 15.6 Hct 46.9 MCV 85.9 MCH 28.6 MCHC 33.3 RDW Std Deviation 39.3 RDW Coeff of María Elena 12.7 Plt Count 433 H MPV 10.6 Immature Gran % (Auto) 0.3 Neut % (Auto) 67.6 Lymph % (Auto) 23.7 [place] % (Auto) 7.8 Eos % (Auto) 0.4 Baso % (Auto) 0.2 Neut # (Auto) 6.25 Lymph # (Auto) 2.19 [place] # (Auto) 0.72 H Eos # (Auto) 0.04 Baso # (Auto) 0.02 Immature Gran # (Auto) 0.03 Sodium 137 Potassium 4.0 Chloride 103 Carbon Dioxide 25 Anion Gap 9 BUN 16 Creatinine 1.04 Est Cr Clr Drug Dosing Not Reportable eGFR 67.97 BUN/Creatinine Ratio 15.4 Glucose 126 H Calcium 10.4 H Total Bilirubin 0.4 AST 20 ALT 23 Alkaline Phosphatase 123 H Total Protein 8.4 H Albumin 4.8 Globulin 3.6 Albumin/Globulin Ratio 1.3 Lipase 19 Urine Color Yellow Urine Appearance Clear Urine pH 6.0 Ur Specific [place] > 1.045 H Urine Protein 1+ H Urine Glucose (UA) Negative Urine Ketones Negative Urine Blood 1+ H Urine Nitrite Positive A Urine Bilirubin Negative Urine Urobilinogen Negative Ur Leukocyte Esterase Negative Urine WBC (Auto) 21-50 H Urine RBC (Auto) 6-10 H U Hyaline Cast (Auto) 0-2 U Epithel Cells (Auto) 0-2 Urine Bacteria (Auto) 4+ H Urine Mucus Present A Urine Comment Adenovirus (PCR) Not Detected B. pertussis DNA (PCR) Not Detected B.parapertussis DNA PCR Not Detected C. pneumoniae DNA (PCR) Not Detected Coronavirus OC43 (PCR) Not Detected Coronavirus HKU1 (PCR) Not Detected Coronavirus 229E (PCR) Not Detected SARS-CoV-2 (PCR) Not Detected Coronavirus NL63 (PCR) Not Detected Human Metapneumovir PCR Not Detected Influenza Type A (PCR) Not Detected Influenza Type B (PCR) Not Detected M. pneumoniae (PCR) Not Detected Parainfluenza 1 (PCR) Not Detected Parainfluenza 2 (PCR) Not Detected Parainfluenza 3 (PCR) Not Detected Parainfluenza 4 (PCR) Not Detected RSV (PCR) Not Detected Entero/Rhino (PCR) Not Detected Diagnostic Findings Abdomen/Pelvis CT 03/04/25 13:30 CT SCAN OF THE ABDOMEN AND PELVIS WITH IV CONTRAST CLINICAL HISTORY: Generalized abdominal pain. COMPARISON STUDY: Abdominal CT dated 02/13/2025. TECHNIQUE: Following the IV administration of 94 cc of Optiray 320, CT scan of the abdomen and pelvis is performed from the lung bases to the proximal femora. Images are reviewed in the axial, sagittal, and coronal planes. IV contrast was administered without complication. A dose lowering technique was utilized adhering to the principles of ALARA. CT DOSE: 1261.61 mGy.cm FINDINGS: Lung bases: The heart is normal in size and without pericardial effusion. There are tiny calcified granulomas. The lung bases are otherwise clear noting dependent atelectasis. Liver: The contrast-enhanced liver is normal in size, contour, and attenuation. Mild fatty infiltration is seen adjacent to the falciform ligament. There is no intrahepatic biliary ductal dilatation. The hepatic veins and portal veins are patent. Gallbladder: Unremarkable. Spleen: Normal in size and attenuation. Pancreas: Unremarkable. Adrenal glands: Unremarkable. Kidneys: The contrast enhanced kidneys are normal in size and without hydronephrosis. The kidneys enhance symmetrically. Abdominal vasculature: The abdominal aorta is normal in course and caliber noting mild but age advanced atherosclerotic calcification. Bowel: There is mild to moderate colonic fecal retention. No bowel obstruction is seen. The appendix is well-visualized and normal. Peritoneum: There is no intraperitoneal free air or abdominal ascites. There is a fat-containing umbilical hernia. Lymphadenopathy: None. Pelvic viscera: The bladder is partially decompressed around a Cintron catheter. The bladder wall is thickened with mucosal hyperemia and mild surrounding infiltration. The uterus is surgically absent. No adnexal lesion is seen. Skeletal structures: No lytic or blastic lesions are seen. There is severe disc space narrowing with endplate sclerosis and a posterior disc osteophyte complex at L5-S1. IMPRESSION: There is evidence of cystitis. Correlate with clinical findings and urinalysis. ACT 112: Negative or not required by law. Electronically signed by: Guru Chapman M.D. 03/04/2025 1:58 PM Chest X-Ray 03/04/25 13:30 XR chest 2V PA/lateral CLINICAL HISTORY: cough, fever COMPARISON STUDY: Chest CT February 10, 2025. Chest radiograph February 13, 2025. FINDINGS: Lung volumes are normal. Lungs are clear. There is no pneumothorax or pleural effusion. Cardiac size is normal. Mediastinal contours are normal. There is no evidence for pulmonary edema. IMPRESSION: No acute cardiopulmonary findings. ACT 112: Negative or not required by law. Electronically signed by: Travon Arnold M.D. 03/04/2025 2:41 PM Code Status & VTE Plan Code Status full PG Care Time/CCT Total # of Minutes Spent Total Time Spent with Patient: Total time spent is greater than 50% in coordination of care (as documented) at patient's floor/unit and/or counseling patient: Coding Level of Care Code 06781 INT INP/OBS CARE 3/75MIN Diagnoses Catheter-associated urinary tract infection T83.511A; N39.0 Infection due to ESBL-producing Klebsiella pneumoniae A49.8; Z16.12 Chronic narcotic dependence F11.20 Paraplegia G82.20 Current smoker F17.200 COPD with emphysema J43.9 Neuromuscular disease G70.9 Bipolar affective disorder in remission F31.70 Arachnoiditis of spine G03.9 GERD (gastroesophageal reflux disease) K21.9 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
[2025-03-04] MEDS: MoRPHine SULFATE 4 MG/ML 1 ML CARP\\VIAL IV STA (18:21)
[2025-03-04] MEDS ORDERED: ZOLPIDEM TARTRATE 5 MG TAB PO PRN (22:46)
[2025-03-04] MEDS ORDERED: NON-FORMULARY MEDICATION (Budesonide-Glycopyr-Formoterol [Breztri Aerosphere] 160-9-4.8 mc INH SCH (22:46)
[2025-03-04] MEDS ORDERED: NYSTATIN POWDER 15GM BTL EXT PRN (22:46)
[2025-03-04] MEDS ORDERED: ALBUTEROL HFA 8 GM INHALER INH PRN (22:46)
[2025-03-04] MEDS: SODIUM CHLORIDE 0.9% 1,000 ML IV SCH (23:19)
[2025-03-04] MEDS: MoRPHine SULFATE IR 15 MG TAB (IMMEDIATE RELEASE) PO PRN (23:23)
--- NOTE | 2025-03-04 23:31 | Urology Consultation ---
Date of Consultation March 04, 2025 Assessment & Plan (1) History of ESBL E. coli infection: The patient has been admitted to the hospital service. Urologic recommendations are as follows: There is concern the patient has an active urinary tract infection and due to her recent urine cultures with Klebsiella and multiple resistances she has been placed on antibiotics in form of Invanz. Appropriate cultures have been sent and used to tailor future antibiotic therapy Patient's current Cintron catheter should be maintained to gravity drainage Will follow serial labs Hydrate the patient with IV fluids Provide antipyretics for comfort as needed I discussed with the patient that we will empirically make her n.p.o. after midnight, however I did tell her that Dr. Hanks may wish her to be afebrile for 24 to 48 hours prior to intervening with a suprapubic catheter. She will be evaluated by her [facility] urology team on 03/05/2025 and a more definitive the timing of placement of her suprapubic catheter can be discussed Additional recommendations be forthcoming based on her clinical course as unfolds Supervising Physician Co-Signing Physician Notes Patient seen and examined independently, agree with above History of Present Illness Reason for Consultation: Frequent/recurrent urinary tract infections Urinary retention Chronic indwelling Cintron catheter Need for suprapubic catheter Attending Physician: Johnny Valerio MD History of Present Illness This is a 44-year-old female with a history of a progressive neuromuscular disorder that is causing urinary retention. The patient says that she has had a Cintron catheter due to this problem since November and she has a history of multiple/recurrent urinary tract infections. The patient notes that since November she has had a Cintron catheter that gets changed at frequent intervals but she has not gone without a catheter since that time. Patient says that she was seen by Dr. Hanks of [facility] urology and he is tentatively scheduled the patient to get a suprapubic catheter on 03/11/2025 but she notes that he also told her to report to the emergency department/hospital if she develops any febrile episodes. The patient notes that she feels as though she had another urinary tract infection and she has been having fevers as high as 101.5. She notes that the symptoms correlate with the urinary tract infection she has. She reports back/flank pain and also some suprapubic discomfort. She has had some nausea without vomiting. The patient notes that due to her fevers she takes Tylenol and she said that this helped alleviate her symptoms somewhat. Since arrival to hospital the patient's had labs and imaging which independent reviewed. Chest x-ray showed no evidence of pneumonia. Patient had a CT scan of the abdomen pelvis that showed evidence of cystitis as a bladder wall was noted to be thickened with surrounding infiltration. There is no evidence of hydronephrosis. CBC revealed white blood cell count, hemoglobin, and hematocri t, were normal. Platelet count was 4 33,000. Chemistry profile showed sodium, potassium, BUN, creatinine were normal. The urinalysis was positive for nitrites but negative for leukocyte esterase. There were 21-50 white blood cells per high-powered field and 4+ bacteria on the study. A bio fire study was performed and all viruses tested for were negative. The patient's past urine cultures were reviewed and are 01/30/2025 the patient did have a Klebsiella urinary tract infection with multiple resistances. She had a similar urinary tract infection with same organism on 12/25/2024. At the time of my interview patient was resting comfortably in bed and she was no distress. Allergies Allergy/AdvReac Type Severity Reaction Status Date / Time Penicillins Allergy Intermediate Hives Verified 02/05/25 14:27 Home Medications Medication Instructions Recorded Confirmed Type pregabalin 150 mg capsule 150 mg PO TID 10/11/24 03/04/25 History conjugated estrogens 0.625 mg/gram 0.3125 mg topical .COMPLEX #30 12/08/24 03/04/25 Rx vaginal cream (Premarin) grams Adult Briefs #200 ea 12/26/24 02/19/25 Rx Bedside Commode #1 ea 12/26/24 02/19/25 Rx Grab Bar, Wall Mounted #1 ea 12/26/24 02/19/25 Rx Incontinence pad #200 ea 12/26/24 02/19/25 Rx Nitrile gloves #200 ea 12/26/24 02/19/25 Rx Over the Bed table #1 ea 12/26/24 02/19/25 Rx Perineal Cleansing wipes #12 ea 12/26/24 02/19/25 Rx Trapeze [place] #1 ea 12/26/24 02/19/25 Rx Underpad, Disposable #200 ea 12/26/24 02/19/25 Rx food supplemt, lactose-reduced 15 ea PO TID #1,422 mL 12/26/24 03/04/25 Rx (Ensure Original oral liquid) Flutter Valve #1 ea 12/29/24 02/19/25 Rx albuterol sulfate 90 mcg/actuation 2 puff inhalation Q4H PRN Wheezing 12/29/24 03/04/25 Rx aerosol inhaler #8.5 grams budesonide 160 mcg-glycopyr 9 2 inh inhalation BID #10.7 grams 12/29/24 03/04/25 Rx mcg-formot 4.8 mcg/actuation HFA inhaler (Breztri Aerosphere) zolpidem 5 mg tablet 5 mg PO ONCE PRN sleep #2 tabs 12/29/24 03/04/25 Rx sennosides 8.6 mg-docusate sodium 1 tab PO QAM 30 days #30 tabs 12/31/24 03/04/25 Rx 50 mg tablet (Senokot-S) lidocaine 5 % topical patch 1 patch transdermal QAM #30 ea 01/16/25 03/04/25 Rx baclofen 10 mg tablet 10 mg PO TID PRN muscle spasm 30 01/19/25 03/04/25 Rx days #90 tabs buspirone 5 mg tablet 5 mg PO BID #60 tabs 01/19/25 03/04/25 Rx mirtazapine 15 mg tablet 15 mg PO HS depression 1 month #30 01/19/25 03/04/25 Rx tabs nitrofurantoin 100 mg PO DAILY 90 days #90 caps 02/02/25 03/04/25 Rx monohydrate/macrocrystals 100 mg capsule (Macrobid) duloxetine 30 mg capsule,delayed 30 mg PO QAM 02/03/25 03/04/25 History release nystatin 100,000 unit/gram topical 1 applic topical TID PRN . 02/03/25 03/04/25 History powder buprenorphine 10 mcg/hour weekly 1 patch transdermal Q7D 02/09/25 03/04/25 Rx transdermal patch (Butrans) neuromuscular degen disease, severe pain 1 month #4 ea ondansetron 4 mg disintegrating 4 mg PO Q6H PRN nausea and 02/09/25 03/04/25 Rx tablet vomiting 1 month #90 tabs clotrimazole 1 % vaginal cream 1 applic vaginal HS #45 grams 02/17/25 03/04/25 Rx vibegron 75 mg tablet (Gemtesa) 75 mg PO DAILY #30 tabs 02/17/25 03/04/25 Rx morphine 15 mg immediate release 15 mg PO Q8H PRN breakthrough 02/19/25 03/04/25 Rx tablet pain, severe 1 month #90 tabs omeprazole 40 mg capsule,delayed 40 mg PO BID #120 caps 02/19/25 03/04/25 Rx release polyethylene glycol 3350 17 17 g PO BID 02/19/25 03/04/25 History gram/dose oral powder (Miralax) soluble corn fiber-inulin 1.7 gram 1 tab PO DAILY #30 tabs 02/19/25 03/04/25 Rx chewable tablet (Metamucil (inulin-corn fiber)) levofloxacin 500 mg tablet 500 mg PO DAILY 10 days #10 tabs 03/03/25 03/04/25 Rx Patient History Medical History Urinary retention indwelling cintron SOB (shortness of breath) at rest, follows with dr. 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 luz- uses electric wheelchair- will be seeing neurosurgeon in [place] may 2025 Heart problem "they told me i have scarring on my heart" pt states she will see cardio at [facility] on 02/09/25 Destiny has sleep study on 02/17/25 COPD with emphysema uses daily inhaler and rescue inhaler twice daily- gets sob at rest- follow with dr. lee, smokes < 5 cigs per day Ambulatory dysfunction uses motorized wheelchair Trauma in childhood Hiatal hernia Hepatitis unsure which one, says cleared on own- [facility] dr. ileana IBARRA (hyperlipidemia) Depression Surgical History History of surgery on right wrist (2010) fluid in joints S/P inguinal hernia repair right- as achild S/P x2 S/P tubal ligation S/P right oophorectomy (2018) open S/P laparoscopic hysterectomy (2017) RATLH-LSO Family History Other Prostate cancer Denies family history of Neuromuscular disorder Ovarian cancer Breast cancer Colorectal cancer Social History Smoking Status: Current every day smoker Tobacco Type: Cigarettes Age Started Using Tobacco: 11; Age Quit Using Tobacco: 0; packs per day: 1; Cigarettes Per Day: < 5 cigs per day; Second Hand Exposure: No; Do You Dip or Chew Tobacco: No; Tobacco Cessation Education Requested by Patient: No Hx Alcohol Use: No Hx Substance Use: Yes Last Used Substance: Days (ago) Last Used Substance Other:: This morning Substance Use Type Other:: Medical Marijuana and Oxycodone for pain Preferred Language: Welsh Communication Ability: Effective Health Program Specialist Required: No Beliefs That Will Affect Care: None marital status: Single Current Living Situation: Family Current Living Situation Comment: lives with 2 children in [place] current occupational status: disabled How many Children do You have: 2 Other Information That Helps Us Care for You: No Feels Safe at Home: Yes Safety Concerns: Feels Safe At This Time Assistive Devices: Wheelchair Review of Systems Review of Systems: All systems reviewed & are unremarkable except as noted in HPI & below Physical Exam Constitutional: WD/WN, vitals as above Eyes: no conjunctival abnormality ENMT: Ears: no hearing impairment and no external ear abnormality Mouth: no oropharynx abnormality Neck: trachea midline Respiratory: normal respiratory effort; no respiratory distress and no labored breathing Cardiovascular: Rate/Rhythm: regular rate and regular rhythm Gastrointestinal (Abdomen): Abdomen is soft with minimal distention. There is no rebound tenderness, guarding, or rigidity. She did exhibit suprapubic discomfort with palpation Musculoskeletal: No calf tenderness Skin: No rash Psychiatric: A+Ox3, euthymic affect Genitourinary: CVA tenderness and a slight fashion was noted on the left with percussion but not on the right. Results & Data Vital Signs (Past 12 Hours) Vital Signs Temp Pulse Pulse Resp BP BP BP 03/04/25 22:57 36.3 C L 18 111/70 03/04/25 22:04 03/04/25 21:30 66 15 109/69 03/04/25 21:00 66 15 106/69 03/04/25 20:30 114/70 03/04/25 19:30 113/72 03/04/25 18:00 71 11 L 110/82 03/04/25 18:00 83 18 110/82 03/04/25 17:42 68 19 117/76 03/04/25 17:30 76 16 117/76 03/04/25 16:49 72 03/04/25 16:00 72 18 114/64 03/04/25 14:00 78 18 131/87 03/04/25 13:30 87 11 L 139/108 H 03/04/25 13:00 82 13 129/85 03/04/25 12:48 92 H 03/04/25 11:53 36.4 C L 115 H 18 141/106 H Pulse Ox O2 Del Method 03/04/25 22:57 96 Room Air 03/04/25 22:04 Room Air 03/04/25 21:30 95 03/04/25 21:00 95 03/04/25 20:30 94 03/04/25 19:30 95 03/04/25 18:00 95 03/04/25 18:00 97 Room Air 03/04/25 17:42 94 03/04/25 17:30 97 Room Air 03/04/25 16:49 03/04/25 16:00 97 Room Air 03/04/25 14:00 96 Room Air 03/04/25 13:30 96 03/04/25 13:00 95 03/04/25 12:48 03/04/25 11:53 96 Room Air PG Care Time/CCT Total # of Minutes Spent Total Time Spent with Patient: Total time spent is greater than 50% in coordination of care (as documented) at patient's floor/unit and/or counseling patient: Coding Level of Care Code 37091 IN/OBS CONSULT LVL 5,80M Diagnoses History of ESBL E. coli infection Z86.19
[2025-03-04] MEDS: PREGABALIN 150 MG CAP PO SCH (23:39)
[2025-03-04] MEDS: BACLOFEN 10 MG TAB PO SCH (23:40)
[2025-03-04] MEDS: busPIRone 5 MG TAB PO SCH (23:40)
[2025-03-04] MEDS: REMOVE LIDODERM PATCH SCH (23:40)
[2025-03-04] MEDS: CLOTRIMAZOLE VAGINAL CR 7 APPLN/45 GM TUBE PV SCH (23:40)
[2025-03-04] MEDS: MIRTAZAPINE TAB 15 MG TAB PO SCH (23:40)
[2025-03-04] MEDS: Patient's HEIGHT &/or WEIGHT Needed STA (23:41)
[2025-03-05] MEDS: BUPRENORPHINE 10 MCG/HR TDSY TD SCH (01:20)
[2025-03-05] MEDS: REMOVE & WASTE BUTRANS PATCH 1 EA EA SCH (01:25)
[2025-03-05] MEDS: ACETAMINOPHEN 325 MG TAB PO PRN (02:31)
[2025-03-05 07:07] LABS: Anion Gap 6.0 (3-11); Blood Urea Nitrogen 15.0 mg/dl (6-23); Calcium 9.3 mg/dl (8.6-10.3); Carbon Dioxide 26.0 mmol/L (21-32); Chloride 107.0 mmol/L (98-107); Creatine Kinase 80.0 U/L (26-192); Creatinine Clr Calc Pharmacy 82.5 ml/min; Glucose 91.0 mg/dl (70-99(Fasting)); Magnesium 2.3 mg/dl (1.7-2.4); Potassium 4.7 mmol/L (3.5-5.1); Sodium 139.0 mmol/L (136-145)
[2025-03-05 07:49] LABS: Hemoglobin A1C 6.3 % (4.5-5.6)
[2025-03-05] MEDS: CHECK BUPRENORPHINE PATCH SCH (08:52)
[2025-03-05] MEDS: LIDOCAINE 5% 1 PATCH TD SCH (08:53)
[2025-03-05] MEDS: ENOXAPARIN INJ 40 MG/0.4 ML SYR SQ SCH (08:56)
[2025-03-05] MEDS: FLUTICASONE FUROATE 200MCG 14 PUFFS/INHALER INH SCH (08:57)
[2025-03-05] MEDS: methylPREDNISolone 4 MG TAB PO SCH (08:57)
[2025-03-05] MEDS: UMECLIDINIUM/VILANTEROL 62.5/25MCG 7 PUFFS/INHALER INH SCH (08:58)
[2025-03-05] MEDS: VIBEGRON 75 MG TAB PO SCH (08:59)
--- NOTE | 2025-03-05 09:17 | Urology Progress Note ---
Date of Service March 05, 2025 Assessment & Plan (1) Catheter-associated urinary tract infection: Plan: Follow-up of catheter associated urinary tract infection Patient afebrile and hemodynamically stable Labs reviewedcreatinine 0.85, WBC 9.25, hemoglobin 15.6 Urine culture pending Previous urine culture with Klebsiella pneumoniae ESBL Continue with broad-spectrum antibiotics and narrow per sensitivities data when available Maintain Moya catheter to gravity drainage No plan for acute intervention at this time, okay to resume diet Continue with IV antibiotics and supportive care, medical management per hospital medicine Will try to move up her surgery for suprapubic catheter placement once she has been treated with several days of IV antibiotics will follow peripherally, please contact her service with any additional questions or concerns Admission and Anticipated Discharge Date Admission Date: March 04, 2025 Supervising Physician Co-Signing Physician Notes Subjectively doing okay Still reports some back pain rating up to her left flank afebrile overnight Tolerating her catheter and thinks that the antibiotics are already starting to make some difference for her Subjective Patient seen and examined at bedside this morning. She is resting in bed, no distress. Reports feeling a little better since arrival. Reports left flank pain. No fever or chills. No nausea or vomiting. Moya draining appropriately. Review of Systems Constitutional: as per Subjective / HPI Genitourinary: as per Subjective / HPI Physical Exam Constitutional: no acute distress Respiratory: normal respiratory effort; no respiratory distress and no labored breathing Gastrointestinal (Abdomen): Inspection/Auscultation: abdomen normal to inspection Musculoskeletal: Head/Neck/Chest: normocephalic Neurologic: moves all extremities and awake Psychiatric: Orientation: alert and oriented x 3 Genitourinary: Moya draining yellow urine Results & Data Vital Signs (Past 12 Hours) Vital Signs Temp Pulse Pulse Resp BP BP BP 03/05/25 08:07 36.8 C 63 18 98/58 L 03/04/25 22:57 36.3 C L 18 111/70 03/04/25 22:46 36.3 C L 18 111/70 03/04/25 22:04 03/04/25 21:30 66 15 109/69 Pulse Ox O2 Del Method 03/05/25 08:07 95 Room Air 03/04/25 22:57 96 Room Air 03/04/25 22:46 Room Air 03/04/25 22:04 Room Air 12/17/25 21:30 95 PG Care Time/CCT Total # of Minutes Spent Total Time Spent with Patient: Total time spent is greater than 50% in coordination of care (as documented) at patient's floor/unit and/or counseling patient: Coding Level of Care Code 98891 SUB INP/OBS CARE 04/12MIN Diagnoses Catheter-associated urinary tract infection T83.511A; N39.0
--- NOTE | 2025-03-05 12:32 | Hospitalist Progress Note ---
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 Recent hospitalization for ESBL Klebsiella UTI and discharged on 02/17/25. Suprapubic catheter placement was being planned for outpatient surgery on 03/11/25 after it was determined that it would be safe to have such surgery at [facility] and not needing tertiary care (Patient has RYR1 mutation which increases risk of malignant hyperthermia but ultimately deemed ok to have surgery here - see documentation from 03/04/25 from PHYLICIA Sweeney). #Catheter-associated UTI | Chronic Moya catheter - Recent history of ESBL Klebsiella UTI. Urine culture preliminarily growing Klebsiella pneumoniae, sensitivities pending - Continue IV ertapenem - Other infectious work-up including CXR, respiratory biofire - all negative - Urology consulted - will try to move up her surgery for suprapubic catheter placement when she has been treated with several days of IV antibiotics - Infectious disease consulted, appreciate assistance. Recommends 7-day course of antibiotics (ertapenem through 03/10). For suprapubic catheter procedure occurs after 03/10, can extend course of ertapenem to make sure she is receiving perioperative antibiotics. If she gets her procedure earlier than currently scheduled and is ready for discharge prior to 03/10, can switch to oral levofloxacin on discharge - Exchange Moya catheter 03/05 - initially was deferred on admission since she will likely have suprapubic cath placed this hospitalization, but ID recommended Moya exchange to clear out some of the bacteria that is likely colonizing the old Moya #Recent diagnosis of polyarticular arthritis - On 02/25 was prescribed Plaquenil 400mg daily + methylprednisolone taper utilizing 4mg tabs (4 tabs QD x 1 week, 3 tabs QD x 1 week, and so forth). No documentation from that rheumatology visit in our system - RA? MCTD? SLE? other? (RF and ESTEBAN negative via the [facility] system in 10/2024) - Cont steroids - she is now on 12mg/day of methylprednisolone based on her taper - Hold Plaquenil for now #Diarrhea - Hold senna, MiraLAX - C. diff negative #Mild hypercalcemia - Ca 10.4 on arrival, hypercalcemia now resolved - Receive isotonic IV fluids. Ca now 9.3 - If Ca is persistently elevated, check intact PTH, etc. - she does not jason any offending meds that would lead to hypercalcemia #Palliative care - patient follows with Cyndie Prater outpatient - Patient requested palliative consult while here - consult placed and Cyndie will see her on 03/06 #Neuromuscular d/o vs myopathy - She reports significant muscle spasms thus will schedule her baclofen 10mg TID - Continue duloxetine daily , Lyrica TID #Acquired paraplegia - 2nd to neuromuscular disorder vs myopathy; follows with Dr Jhonatan Quick, [facility] Neu[facility] - Wheelchair-dependent at baseline - PT/OT while here #Chronic pain syndrome - PDMP reviewed on admission - Continue Butrans patch 10mcg weekly - Continue morphine IR 15mg prn #Tobacco use - Offer nicoderm patch - Grip Boss to quit #COPD - No exacerbation at this time. Continue home inhalers #GERD - Continue PPI twice daily VTE PPx: Lovenox - High risk due to immobility Dispo: Continued inpatient stay. Anticipate patient remaining inpatient through the weekend for IV antibiotics and hopefully can have suprapubic catheter placed early next week with urology. Consulted and discussed case with ID Consulted palliative care Admission and Anticipated Discharge Date Admission Date: March 04, 2025 Supervising Physician Co-Signing Physician Notes Attending Attestation - Chart reviewed, care plan d/w PHYLICIA Sanchez. I agree w/ the richardson components of her documentation. Appreciate urology assistance. Johnny Valerio MD Subjective Patient seen and evaluated at bedside. She reports that she feels like the "antibiotics are starting to work." She does continue to have left sided flank pain. She has not had further episodes of diarrhea today. We discussed having ID weigh in on the antibiotic regimen. She also asks for a palliative care consult while she is here. No additional complaints or concerns at this time. Physical Exam Physical Exam: General: No acute distress, nondiaphoretic, well-developed, well-nourished. Skin: Warm, dry. No rashes or peripheral edema noted. Cardiac: Regular rate and rhythm without murmurs gallops or rubs. Pulm: Clear to auscultation bilaterally without wheezes, rales or rhonchi. Nor mal respiratory effort. 96% on room air. Abdominal: Soft, nondistended. Tender to palpation of suprapubic region. Bowel sounds present. : Moya catheter draining clear yellow urine. Neuro: A&O x3. Results & Data Results & Data Vital Signs (Past 12 Hours) Vital Signs Temp Pulse Resp BP Pulse Ox O2 Del Method 03/05/25 08:07 98.2 F 63 18 98/58 L 95 Room Air Laboratory Results Reviewed BMP/chemistries, stool studies, urine culture PG Care Time/CCT Total # of Minutes Spent Total Time Spent with Patient: Total time spent is greater than 50% in coordination of care (as documented) at patient's floor/unit and/or counseling patient: Coding Level of Care Code 55709 SUB INP/OBS CARE 3/50MIN Diagnoses Urinary tract infection associated with indwelling urethral catheter, initial encounter T83.511A; N39.0 Encounter type: initial encounter Indwelling urinary catheter type: indwelling urethral catheter Infection due to ESBL-producing Klebsiella pneumoniae A49.8; Z16.12 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
[2025-03-05] MEDS: ONDANSETRON INJ 2 MG/ML 2 ML VIAL IV PRN (14:56)
[2025-03-05 15:52] LABS: Cdiff Toxin B Gene (2yr or >) Negative Cdiff Gene (Neg)
--- NOTE | 2025-03-05 16:19 | Infectious Disease Consult ---
Date of Consultation March 05, 2025 Assessment & Plan (1) Infection due to ESBL-producing Klebsiella pneumoniae: (2) Catheter-associated urinary tract infection: Plan Problems: #Kleb pneumo CAUTI #Recurrent UTIs #Urinary retention with chronic indwelling cintron catheter Micro: 03/04 UCx: Kleb pneumo 01/30 UCx: ESBL Kleb pneumo (S erta, levo, elli. 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 Reported abdominal pain and suprapubic pain. Again found to have CAUTI. On presentation, pt was afebrile, HR 115. Labs showed WBC 9.25. UA with 21-50 WBCs. CTAP with IV contrast showed evidence of cystitis. CXR negative. She was started on ertapenem based on recent urine culture. Urology was consulted, and will try to move up her surgery for suprapubic catheter placement which was previously planned for 03/11/25. UCx here is again growing Kleb pneumo, sensitivities pending. Recommendations: - Would exchange cintron catheter if it has not already been done this admission - Continue ertapenem 1 g IV q24h. Would plan for a 7 day course of antibiotics through 03/10 (although this course can be extended if her suprapubic catheter placement procedure will be after 03/10, in order to make sure she is receiving perioperative antibiotics). Can be changed to levofloxacin 750 mg PO q24h if pt is to be discharged prior to completion of course of antibiotics Will sign off. Consultation Information This patient recommendation is based on a telemedicine consult request which was completed asynchronously through chart review and information provided by the primary physician. The patient was not seen or examined today. The evaluation is consultative in nature and all patient care and treatment decisions can either be accepted or rejected by the patient's primary hospital-based treating physician using their own independent medical judgment for their patient. Fare Register Repairer contact information: Please call [facility] . 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 Reported abdominal pain and suprapubic pain. On presentation, pt was afebrile, HR 115. Labs showed WBC 9.25. UA with 21-50 WBCs. CTAP with IV contrast showed evidence of cystitis. CXR negative. She was started on ertapenem based on recent urine culture. Urology was consulted, and will try to move up her surgery for suprapubic catheter placement which was previously planned for 03/11/25. UCx here is again growing Kleb pneumo, sensitivities pending. Allergies Allergy/AdvReac Type Severity Reaction Status Date / Time Penicillins Allergy Intermediate Hives Verified 02/05/25 14:27 Home Medications Medication Instructions Recorded Confirmed Type pregabalin 150 mg capsule 150 mg PO TID 10/11/24 03/04/25 History conjugated estrogens 0.625 mg/gram 0.3125 mg topical .COMPLEX #30 12/08/24 03/04/25 Rx vaginal cream (Premarin) grams Adult Briefs #200 ea 12/26/24 02/19/25 Rx Bedside Commode #1 ea 12/26/24 02/19/25 Rx Grab Bar, Wall Mounted #1 ea 12/26/24 02/19/25 Rx Incontinence pad #200 ea 12/26/24 02/19/25 Rx Nitrile gloves #200 ea 12/26/24 02/19/25 Rx Over the Bed table #1 ea 12/26/24 02/19/25 Rx Perineal Cleansing wipes #12 ea 12/26/24 02/19/25 Rx Trapeze [place] #1 ea 12/26/24 02/19/25 Rx Underpad, Disposable #200 ea 12/26/24 02/19/25 Rx food supplemt, lactose-reduced 15 ea PO TID #1,422 mL 12/26/24 03/04/25 Rx (Ensure Original oral liquid) Flutter Valve #1 ea 12/29/24 02/19/25 Rx albuterol sulfate 90 mcg/actuation 2 puff inhalation Q4H PRN Wheezing 12/29/24 03/04/25 Rx aerosol inhaler #8.5 grams budesonide 160 mcg-glycopyr 9 2 inh inhalation BID #10.7 grams 12/29/24 03/04/25 Rx mcg-formot 4.8 mcg/actuation HFA inhaler (Breztri Aerosphere) zolpidem 5 mg tablet 5 mg PO ONCE PRN sleep #2 tabs 12/29/24 03/04/25 Rx sennosides 8.6 mg-docusate sodium 1 tab PO QAM 30 days #30 tabs 12/31/24 03/04/25 Rx 50 mg tablet (Senokot-S) lidocaine 5 % topical patch 1 patch transdermal QAM #30 ea 01/16/25 03/04/25 Rx baclofen 10 mg tablet 10 mg PO TID PRN muscle spasm 30 01/19/25 03/04/25 Rx days #90 tabs buspirone 5 mg tablet 5 mg PO BID #60 tabs 01/19/25 03/04/25 Rx mirtazapine 15 mg tablet 15 mg PO HS depression 1 month #30 01/19/25 03/04/25 Rx tabs nitrofurantoin 100 mg PO DAILY 90 days #90 caps 02/02/25 03/04/25 Rx monohydrate/macrocrystals 100 mg capsule (Macrobid) duloxetine 30 mg capsule,delayed 30 mg PO QAM 02/03/25 03/04/25 History release nystatin 100,000 unit/gram topical 1 applic topical TID PRN . 02/03/25 03/04/25 History powder buprenorphine 10 mcg/hour weekly 1 patch transdermal Q7D 02/09/25 03/04/25 Rx transdermal patch (Butrans) neuromuscular degen disease, severe pain 1 month #4 ea ondansetron 4 mg disintegrating 4 mg PO Q6H PRN nausea and 02/09/25 03/04/25 Rx tablet vomiting 1 month #90 tabs clotrimazole 1 % vaginal cream 1 applic vaginal HS #45 grams 02/17/25 03/04/25 Rx vibegron 75 mg tablet (Gemtesa) 75 mg PO DAILY #30 tabs 02/17/25 03/04/25 Rx morphine 15 mg immediate release 15 mg PO Q8H PRN breakthrough 02/19/25 03/04/25 Rx tablet pain, severe 1 month #90 tabs omeprazole 40 mg capsule,delayed 40 mg PO BID #120 caps 02/19/25 03/04/25 Rx release polyethylene glycol 3350 17 17 g PO BID 02/19/25 03/04/25 History gram/dose oral powder (Miralax) soluble corn fiber-inulin 1.7 gram 1 tab PO DAILY #30 tabs 02/19/25 03/04/25 Rx chewable tablet (Metamucil (inulin-corn fiber)) levofloxacin 500 mg tablet 500 mg PO DAILY 10 days #10 tabs 03/03/25 03/04/25 Rx Patient History Medical History Urinary retention indwelling cintron SOB (shortness of breath) at rest, follows with dr. 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 luz- uses electric wheelchair- will be seeing neurosurgeon in [place] may 2025 Heart problem "they told me i have scarring on my heart" pt states she will see cardio at [facility] on 02/09/25 Destiny has sleep study on 02/17/25 COPD with emphysema uses daily inhaler and rescue inhaler twice daily- gets sob at rest- follow with dr. lee, smokes < 5 cigs per day Ambulatory dysfunction uses motorized wheelchair Trauma in childhood Hiatal hernia Hepatitis unsure which one, says cleared on own- [facility] dr. ileana IBARRA (hyperlipidemia) Depression Surgical History History of surgery on right wrist (2010) fluid in joints S/P inguinal hernia repair right- as achild S/P x2 S/P tubal ligation S/P right oophorectomy (2017) open S/P laparoscopic hysterectomy (2016) RATLH-LSO Family History Other Prostate cancer Denies family history of Neuromuscular disorder Ovarian cancer Breast cancer Colorectal cancer Social History Smoking Status: Current every day smoker Tobacco Type: Cigarettes Age Started Using Tobacco: 11; Age Quit Using Tobacco: 0; packs per day: 1; Cigarettes Per Day: < 5 cigs per day; Second Hand Exposure: No; Do You Dip or Chew Tobacco: No; Tobacco Cessation Education Requested by Patient: No Hx Alcohol Use: No Hx Substance Use: Yes Last Used Substance: Days (ago) Last Used Substance Other:: This morning Substance Use Type Other:: Medical Marijuana and Oxycodone for pain Preferred Language: Cymraes Communication Ability: Effective 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 Helper Required: No Beliefs That Will Affect Care: None marital status: Single Current Living Situation: Family Current Living Situation Comment: lives with 2 children in [place] current occupational status: disabled How many Children do You have: 2 Other Information That Helps Us Care for You: No Feels Safe at Home: Yes Safety Concerns: Feels Safe At This Time Assistive Devices: Bedside Commode, Hospital Bed, Mechanical Lift, Scooter/Electric Scooter and Walker Results & Data Vital Signs (Past 12 Hours) Vital Signs Temp Pulse Pulse Resp BP BP Pulse Ox 03/05/25 15:21 36.5 C 67 17 109/71 96 03/05/25 15:06 36.5 C 76 16 115/79 97 03/05/25 08:07 36.8 C 63 18 98/58 L 95 O2 Del Method 03/05/25 15:21 Room Air 03/05/25 15:06 Room Air 03/05/25 08:07 Room Air (2) Catheter-associated urinary tract infection Encounter type: initial encounter Indwelling urinary catheter type: indwelling urethral catheter Qualified Code(s): T83.511A - Infection and inflammatory reaction due to indwelling urethral catheter, initial encounter; N39.0 - Urinary tract infection, site not specified
[2025-03-05] MEDS: ERTAPENEM 1000MG 1,000 MG/10 ML SYR IV SCH (17:16)
[2025-03-05] MEDS: PREMARIN VAG CRM 14 APPLN/30 GM TUBE PV SCH (21:26)
[2025-03-06 05:09] LABS: Hematocrit (blood only) 38.9 % (37.0-47.0); Hemoglobin 13.1 g/dL (12.0-16.0); Mean Corpuscular Hemoglobin 29.0 pg (25.0-34.0); Mean Corpuscular Volume 86.1 fL (80.0-100.0); Platelet Count 316 K/uL (130-400); RDW Standard Deviation 39.1 fL (36.4-46.3); Red Blood Count 4.52 M/uL (4.20-5.40); White Blood Count 6.82 K/ul (4.8-10.8)
[2025-03-06 05:26] LABS: Anion Gap 6.0 (3-11); Blood Urea Nitrogen 19.0 mg/dl (6-23); Calcium 9.0 mg/dl (8.6-10.3); Carbon Dioxide 22.0 mmol/L (21-32); Chloride 110.0 mmol/L (98-107); Creatinine Clr Calc Pharmacy 89.9 ml/min; Glucose 102.0 mg/dl (70-99(Fasting)); Potassium 3.8 mmol/L (3.5-5.1); Sodium 138.0 mmol/L (136-145)
--- NOTE | 2025-03-06 13:05 | Hospitalist Progress Note ---
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 Recent hospitalization for ESBL Klebsiella UTI and discharged on 02/17/25. Suprapubic catheter placement was being planned for outpatient surgery on 03/11/25 after it was determined that it would be safe to have such surgery at [facility] and not needing tertiary care (Patient has RYR1 mutation which increases risk of malignant hyperthermia but ultimately deemed ok to have surgery here - see documentation from 03/04/25 from PHYLICIA Sweeney). #Catheter-associated UTI | Chronic Moya catheter - Recent history of ESBL Klebsiella UTI. Urine culture currently with Klebsiella pneumoniae ESBL - Continue IV ertapenem - Other infectious work-up including CXR, respiratory biofire - all negative - Urology consulted - will try to move up her surgery for suprapubic catheter placement when she has been treated with several days of IV antibiotics. Discussed with urology JUSTIN - tentative plan for procedure on Friday 03/09 if OR availability permits - Infectious disease consulted, appreciate assistance. Recommends 7-day course of antibiotics (ertapenem through 03/10). For suprapubic catheter procedure occurs after 03/10, can extend course of ertapenem to make sure she is receiving perioperative antibiotics - Exchange Omya catheter 03/05 - initially was deferred on admission since she will likely have suprapubic cath placed this hospitalization, but ID recommended Moya exchange to clear out some of the bacteria that is likely colonizing the old Moya #Recent diagnosis of polyarticular arthritis - On 02/25 was prescribed Plaquenil 400mg daily + methylprednisolone taper utilizing 4mg tabs (4 tabs QD x 1 week, 3 tabs QD x 1 week, and so forth). No documentation from that rheumatology visit in our system - RA? MCTD? SLE? other? (RF and ESTEBAN negative via the [facility] system in 10/2024) - Continue steroid taper - Hold Plaquenil for now #Diarrhea - Hold senna, MiraLAX - C. diff negative #Mild hypercalcemia - Ca 10.4 on arrival, hypercalcemia now resolved - Receive isotonic IV fluids. Ca now 9.3 - If Ca is persistently elevated, check intact PTH, etc. - she does not jason any offending meds that would lead to hypercalcemia #Palliative care - patient follows with Cyndie Prater outpatient - Patient requested palliative consult while here - consult placed and Cyndie will see her on 03/06 #Neuromuscular d/o vs myopathy - She reports significant muscle spasms thus will schedule her baclofen 10mg TID - Continue duloxetine daily , Lyrica TID #Acquired paraplegia - 2nd to neuromuscular disorder vs myopathy; follows with Dr Jhonatan Quick, [facility] - Wheelchair-dependent at baseline - PT/OT while here #Chronic pain syndrome - PDMP reviewed on admission - Continue Butrans patch 10mcg weekly - Continue morphine IR 15mg prn #Tobacco use - Offer nicoderm patch - 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 Continue home inhalers #GERD - Continue PPI twice daily VTE PPx: Lovenox - High risk due to immobility Dispo: Continued inpatient stay for IV antibiotics. Planning on suprapubic catheter placement on Friday 03/09. Patient likely to remain inpatient through Saturday 03/10 to complete her course of IV ertapenem. Discussed plan with urology Updated significant other at bedside Admission and Anticipated Discharge Date Admission Date: March 04, 2025 Supervising Physician Co-Signing Physician Notes Attending Attestation - Chart reviewed, care plan d/w PHYLICIA Sanchez. I agree w/ the richardson components of her documentation. Appreciate urology assistance. Cont IV abx for CAUTI. Johnny Valerio MD Subjective Patient seen and evaluated at bedside with her significant other present. She reports feeling the same today as yesterday. She continues to have left-sided flank pain. She has a reduced appetite but eats her meals and well-tolerates it. She reports her Moya catheter was giving her some pain this morning, but this has resolved since her RN adjusted it. We discussed the tentative plan of IV antibiotics through the weekend and urology procedure on Sunday if OR rich ilability permits. No additional complaints or concerns at this time. Physical Exam Physical Exam: General: No acute distress, nondiaphoretic, well-developed, well-nourished. Skin: Warm, dry. No rashes or peripheral edema noted. Cardiac: Regular rate and rhythm without murmurs gallops or rubs. Pulm: Clear to auscultation bilaterally without wheezes, rales or rhonchi. Normal respiratory effort. 96% on room air. Abdominal: Soft, nondistended. Tender to palpation of suprapubic region. Bowel sounds present. : Moya catheter draining clear yellow urine. Neuro: A&O x3. Results & Data Results & Data Vital Signs (Past 12 Hours) Vital Signs Temp Pulse Resp BP Pulse Ox O2 Del Method 03/06/25 07:41 97.7 F 68 19 105/68 96 Room Air Laboratory Results Reviewed CBC, BMP PG Care Time/CCT Total # of Minutes Spent Total Time Spent with Patient: Total time spent is greater than 50% in coordination of care (as documented) at patient's floor/unit and/or counseling patient: Coding Level of Care Code 73505 SUB INP/OBS CARE 350MIN Diagnoses Urinary tract infection associated with indwelling urethral catheter, initial encounter T83.511A; N39.0 Encounter type: initial encounter Indwelling urinary catheter type: indwelling urethral catheter Infection due to ESBL-producing Klebsiella pneumoniae A49.8; Z16.12 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
--- NOTE | 2025-03-07 09:59 | Urology Progress Note ---
Date of Service March 07, 2025 Assessment & Plan (1) Catheter-associated urinary tract infection: Plan: Afebrile hd stable 44F with MDRO UTI and catheter dependant neurogenic bladder in setting degenerative neuromuscular condition. on basis flank tenderness to light palpation suspect component of ascending infection and pyelonephritis, also appears patient has had difficult clearing infection in past and had not tolerated levaquin the only remaining PO option as per most recent culture agree with continued IV abx with ertapenem plan for SPT placement under sedation and local anesthesia Sunday recommend gentamicin irrigation of catheter nightly while inpatient, 30 mg gentamicin in 50 ml saline, please involve patient in this process so she can take over this management at home if patient highly bothered by catheter can remove this and proceed with intermittent catheterization q6 hrs or as needed for discomfort, patient lacks dexterity for same at home but could be helpful while inpatient - please call with questions (2) Urinary retention: Admission and Anticipated Discharge Date Admission Date: March 04, 2025 Subjective feeling better, no nausea vomiting no subjective fevers eating diet, some issues with catheter overnight now doing better Gen: NAD Psych: Alert and Oriented Abd: Nontender nondistended, bilateral flanks ttp : catheter in place light yellow urine Results & Data Vital Signs (Past 12 Hours) Vital Signs Temp Pulse Pulse Resp BP BP Pulse Ox 03/07/25 07:15 36.5 C 70 16 107/70 96 03/07/25 02:49 65 03/06/25 23:23 69 03/06/25 22:43 36.7 C 78 17 116/74 94 Pulse Ox O2 Del Method O2 Del Method 03/07/25 07:15 Room Air 03/07/25 02:49 93 Room Air 03/06/25 23:23 96 Room Air 03/06/25 22:43 Room Air PG Care Time/CCT Total # of Minutes Spent Total Time Spent with Patient: Total time spent is greater than 50% in coordination of care (as documented) at patient's floor/unit and/or counseling patient: Coding Level of Care Code 08378 SUB INP/OBS CARE 2/35MIN Diagnoses Urinary tract infection associated with indwelling urethral catheter, initial encounter T83.511A; N39.0 Encounter type: initial encounter Indwelling urinary catheter type: indwelling urethral catheter Urinary retention R33.9 (1) Catheter-associated urinary tract infection Encounter type: initial encounter Indwelling urinary catheter type: indwelling urethral catheter Qualified Code(s): T83.511A - Infection and inflammatory reaction due to indwelling urethral catheter, initial encounter; N39.0 - Urinary tract infection, site not specified
[2025-03-07] MEDS: MELOXICAM 7.5 MG TAB PO ONE (12:44)
--- NOTE | 2025-03-07 13:02 | Palliative Care Consultation ---
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 Will check noc ox this admission, at least get her on Oxygen with sleep if qualified. Will need PSG rescheduled after dc, she will call sleep lab - I encouraged her to be added to their cancellation list. Will follow peripherally, for now no acute pall med needs but please page as needed. We will schedule a clinic follow up closer to dc. Thank you for allowing us to participate in the ongoing care of this patient. Please page with any additional concerns. Inés Prater DNP Director, Palliative Medicine History of Present Illness Reason for Consultation: continuity Attending Physician: Johnny Valerio MD History of Present Illness Josseline is known to me from OP Pall med clinic, RYR1 neuromuscular disease She is now admitted for recurrent UTI = feeling hot/cold, mild nausea, inc lower abd pain, urine cloudy. Appetite ok. intermittent "feeling feverish" [employer]IAN She is scheduled for a suprapubic catheter on Sunday She continues actively smoking, takes her outside for smoking breaks through the day She will miss her scheduled sleep study 03/08 d/t this admission He continues witnessing apneas Allergies Allergy/AdvReac Type Severity Reaction Status Date / Time Penicillins Allergy Intermediate Hives Verified 02/05/25 14:27 Home Medications Medication Instructions Recorded Confirmed Type pregabalin 150 mg capsule 150 mg PO TID 10/11/24 03/04/25 History conjugated estrogens 0.625 mg/gram 0.3125 mg topical .COMPLEX #30 12/08/24 03/04/25 Rx vaginal cream (Premarin) grams Adult Briefs #200 ea 12/26/24 02/19/25 Rx Bedside Commode #1 ea 12/26/24 02/19/25 Rx Grab Bar, Wall Mounted #1 ea 12/26/24 02/19/25 Rx Incontinence pad #200 ea 12/26/24 02/19/25 Rx Nitrile gloves #200 ea 12/26/24 02/19/25 Rx Over the Bed table #1 ea 12/26/24 02/19/25 Rx Perineal Cleansing wipes #12 ea 12/26/24 02/19/25 Rx Trapeze [place] #1 ea 12/26/24 02/19/25 Rx Underpad, Disposable #200 ea 12/26/24 02/19/25 Rx food supplemt, lactose-reduced 15 ea PO TID #1,422 mL 12/26/24 03/04/25 Rx (Ensure Original oral liquid) Flutter Valve #1 ea 12/29/24 02/19/25 Rx albuterol sulfate 90 mcg/actuation 2 puff inhalation Q4H PRN Wheezing 12/29/24 03/04/25 Rx aerosol inhaler #8.5 grams budesonide 160 mcg-glycopyr 9 2 inh inhalation BID #10.7 grams 12/29/24 03/04/25 Rx mcg-formot 4.8 mcg/actuation HFA inhaler (Breztri Aerosphere) zolpidem 5 mg tablet 5 mg PO ONCE PRN sleep #2 tabs 12/29/24 03/04/25 Rx sennosides 8.6 mg-docusate sodium 1 tab PO QAM 30 days #30 tabs 12/31/24 03/04/25 Rx 50 mg tablet (Senokot-S) lidocaine 5 % topical patch 1 patch transdermal QAM #30 ea 01/16/25 03/04/25 Rx baclofen 10 mg tablet 10 mg PO TID PRN muscle spasm 30 01/19/25 03/04/25 Rx days #90 tabs buspirone 5 mg tablet 5 mg PO BID #60 tabs 01/19/25 03/04/25 Rx mirtazapine 15 mg tablet 15 mg PO HS depression 1 month #30 01/19/25 03/04/25 Rx tabs nitrofurantoin 100 mg PO DAILY 90 days #90 caps 02/02/25 03/04/25 Rx monohydrate/macrocrystals 100 mg capsule (Macrobid) duloxetine 30 mg capsule,delayed 30 mg PO QAM 02/03/25 03/04/25 History release nystatin 100,000 unit/gram topical 1 applic topical TID PRN . 02/03/25 03/04/25 History powder buprenorphine 10 mcg/hour weekly 1 patch transdermal Q7D 02/09/25 03/04/25 Rx transdermal patch (Butrans) neuromuscular degen disease, severe pain 1 month #4 ea ondansetron 4 mg disintegrating 4 mg PO Q6H PRN nausea and 02/09/25 03/04/25 Rx tablet vomiting 1 month #90 tabs clotrimazole 1 % vaginal cream 1 applic vaginal HS #45 grams 02/17/25 03/04/25 Rx vibegron 75 mg tablet (Gemtesa) 75 mg PO DAILY #30 tabs 02/17/25 03/04/25 Rx morphine 15 mg immediate release 15 mg PO Q8H PRN breakthrough 02/19/25 03/04/25 Rx tablet pain, severe 1 month #90 tabs omeprazole 40 mg capsule,delayed 40 mg PO BID #120 caps 02/19/25 03/04/25 Rx release polyethylene glycol 3350 17 17 g PO BID 02/19/25 03/04/25 History gram/dose oral powder (Miralax) soluble corn fiber-inulin 1.7 gram 1 tab PO DAILY #30 tabs 02/19/25 03/04/25 Rx chewable tablet (Metamucil (inulin-corn fiber)) levofloxacin 500 mg tablet 500 mg PO DAILY 10 days #10 tabs 03/03/25 03/04/25 Rx Patient History Medical History Urinary retention indwelling cintron SOB (shortness of breath) at rest, follows with dr. 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 luz- uses electric wheelchair- will be seeing neurosurgeon in [place] may 2025 Heart problem "they told me i have scarring on my heart" pt states she will see cardio at [facility] on 02/09/25 Destiny has sleep study on 02/17/25 COPD with emphysema uses daily inhaler and rescue inhaler twice daily- gets sob at rest- follow with dr. lee, smokes < 5 cigs per day Ambulatory dysfunction uses motorized wheelchair Trauma in childhood Hiatal hernia Hepatitis unsure which one, says cleared on own- [facility] physician dr. ileana IBARRA (hyperlipidemia) Depression Surgical History History of surgery on right wrist (2010) fluid in joints S/P inguinal hernia repair right- as achild S/P x2 S/P tubal ligation S/P right oophorectomy (2017) open S/P laparoscopic hysterectomy (2016) RATLH-LSO Family History Other Prostate cancer Denies family history of Neuromuscular disorder Ovarian cancer Breast cancer Colorectal cancer Social History Smoking Status: Current every day smoker Tobacco Type: Cigarettes Age Started Using Tobacco: 11; Age Quit Using Tobacco: 0; packs per day: 1; Cigarettes Per Day: < 5 cigs per day; Second Hand Exposure: No; Do You Dip or Chew Tobacco: No; Tobacco Cessation Education Requested by Patient: No Hx Alcohol Use: No Hx Substance Use: Yes Last Used Substance: Days (ago) Last Used Substance Other:: This morning Substance Use Type Other:: Medical Marijuana and Oxycodone for pain Preferred Language: Syriac Communication Ability: Effective Qc Tech Required: No Beliefs That Will Affect Care: None marital status: Single Current Living Situation: Family Current Living Situation Comment: lives with 2 children in [place] current occupational status: disabled How many Children do You have: 2 Other Information That Helps Us Care for You: No Feels Safe at Home: Yes Safety Concerns: Feels Safe At This Time Assistive Devices: Bedside Commode, Hospital Bed, Mechanical Lift, Scooter/Electric Scooter and Walker Review of Systems Review of Systems: All systems reviewed & are unremarkable except as noted in Subjective Physical Exam Physical Exam: Semi reclined in bed in recliner bed next to her no acute distress but appears flushed AAOx3 gen weakness no change BLE weakness no change Moving BUE within acceptable range Resp effort WAL with intermittent bronchitic cough no JVD Abd mild TTP Color pale, sl diaphoresis Results & Data Vital Signs (Past 12 Hours) Vital Signs Temp Pulse Pulse Resp BP Pulse Ox Pulse Ox 03/07/25 07:15 36.5 C 70 16 107/70 96 03/07/25 02:49 65 93 O2 Del Method O2 Del Method 03/07/25 07:15 Room Air 03/07/25 02:49 Room Air Laboratory Results 03/06/25 03/05/25 03/05/25 Range/Units 04:52 14:45 06:26 WBC 6.82 (4.8-10.8) K/ul RBC 4.52 (4.20-5.40) M/uL Hgb 13.1 (12.0-16.0) g/dL Hct 38.9 (37.0-47.0) % MCV 86.1 (80.0-100.0) fL MCH 29.0 (25.0-34.0) pg MCHC 33.7 (32.0-36.0) g/dL RDW Std Deviation 39.1 (36.4-46.3) fL RDW Coeff of María Elena 12.5 (11.5-14.5) % Plt Count 316 (130-400) K/uL MPV 10.4 (9.4-12.4) fL Immature Gran % (Auto) % Neut % (Auto) % Lymph % (Auto) % [place] % (Auto) % Eos % (Auto) % Baso % (Auto) % Neut # (Auto) (1.40-6.50) K/uL Lymph # (Auto) (1.20-3.40) K/uL [place] # (Auto) (0.11-0.59) K/uL Eos # (Auto) (0.00-0.50) K/uL Baso # (Auto) (0.00-0.20) K/uL Immature Gran # (Auto) (0.01-0.20) K/uL Sodium 138 139 (136-145) mmol/L Potassium 3.8 4.7 (3.5-5.1) mmol/L Chloride 110 H 107 (98-107) mmol/L Carbon Dioxide 22 26 (21-32) mmol/L Anion Gap 6 6 (3-11) BUN 19 15 (6-23) mg/dl Creatinine 0.78 0.85 (0.6-1.2) mg/dl Est Cr Clr Drug Dosing 89.9 82.5 eGFR 95.99 86.58 BUN/Creatinine Ratio 24.4 H 17.6 (10-20) Glucose 102 H 91 (70-99(Fasting)) mg/dl Estimat Average Glucose 134 mg/dl Hemoglobin A1c 6.3 H (4.5-5.6) % Calcium 9.0 9.3 (8.6-10.3) mg/dl Magnesium 2.3 (1.7-2.4) mg/dl Total Bilirubin (0.2-1.0) mg/dl AST (13-39) U/L ALT (7-52) U/L Alkaline Phosphatase (34-104) U/L Total Creatine Kinase 80 (26-192) U/L Total Protein (6.0-8.3) gm/dl Albumin (3.4-5.0) gm/dl Globulin (2.5-4.0) gm/dl Albumin/Globulin Ratio (0.9-2) Lipase (11-82) U/L Urine Color Urine Appearance (Clear) Urine pH (4.5-7.5) Ur Specific [place] (1.000-1.030) Urine Protein (Negative) Urine Glucose (UA) (Negative) Urine Ketones (Negative) Urine Blood (Negative) Urine Nitrite (Negative) Urine Bilirubin (Negative) Urine Urobilinogen (Negative) Ur Leukocyte Esterase (Negative) Urine WBC (Auto) (0-5) /hpf Urine RBC (Auto) (0-2) /hpf U Hyaline Cast (Auto) (0-2) /lpf U Epithel Cells (Auto) (0-2) /hpf Urine Bacteria (Auto) (None Seen) Urine Mucus (None Prsent) Urine Comment Stl C. diff Tox B Gene Negative Cdiff Gene (Neg) Stl C. diff 027-NAP1-BI NEGATIVE Adenovirus (PCR) (NotDetected) B. pertussis DNA (PCR) (NotDetected) B.parapertussis DNA PCR (NotDetected) C. pneumoniae DNA (PCR) (NotDetected) Coronavirus OC43 (PCR) (NotDetected) Coronavirus HKU1 (PCR) (NotDetected) Coronavirus 229E (PCR) (NotDetected) SARS-CoV-2 (PCR) (NotDetected) Coronavirus NL63 (PCR) (NotDetected) Human Metapneumovir PCR (NotDetected) Influenza Type A (PCR) (NotDetected) Influenza Type B (PCR) (NotDetected) M. pneumoniae (PCR) (NotDetected) Parainfluenza 1 (PCR) (NotDetected) Parainfluenza 2 (PCR) (NotDetected) Parainfluenza 3 (PCR) (NotDetected) Parainfluenza 4 (PCR) (NotDetected) RSV (PCR) (NotDetected) Entero/Rhino (PCR) (NotDetected) 03/04/25 03/04/25 03/04/25 Range/Units 15:25 14:05 12:26 WBC 9.25 (4.8-10.8) K/ul RBC 5.46 H (4.20-5.40) M/uL Hgb 15.6 (12.0-16.0) g/dL Hct 46.9 (37.0-47.0) % MCV 85.9 (80.0-100.0) fL MCH 28.6 (25.0-34.0) pg MCHC 33.3 (32.0-36.0) g/dL RDW Std Deviation 39.3 (36.4-46.3) fL RDW Coeff of María Elena 12.7 (11.5-14.5) % Plt Count 433 H (130-400) K/uL MPV 10.6 (9.4-12.4) fL Immature Gran % (Auto) 0.3 % Neut % (Auto) 67.6 % Lymph % (Auto) 23.7 % [place] % (Auto) 7.8 % Eos % (Auto) 0.4 % Baso % (Auto) 0.2 % Neut # (Auto) 6.25 (1.40-6.50) K/uL Lymph # (Auto) 2.19 (1.20-3.40) K/uL [place] # (Auto) 0.72 H (0.11-0.59) K/uL Eos # (Auto) 0.04 (0.00-0.50) K/uL Baso # (Auto) 0.02 (0.00-0.20) K/uL Immature Gran # (Auto) 0.03 (0.01-0.20) K/uL Sodium 137 (136-145) mmol/L Potassium 4.0 (3.5-5.1) mmol/L Chloride 103 (98-107) mmol/L Carbon Dioxide 25 (21-32) mmol/L Anion Gap 9 (3-11) BUN 16 (6-23) mg/dl Creatinine 1.04 (0.6-1.2) mg/dl Est Cr Clr Drug Dosing Not Reportable eGFR 67.97 BUN/Creatinine Ratio 15.4 (10-20) Glucose 126 H (70-99(Fasting)) mg/dl Estimat Average Glucose mg/dl Hemoglobin A1c (4.5-5.6) % Calcium 10.4 H (8.6-10.3) mg/dl Magnesium (1.7-2.4) mg/dl Total Bilirubin 0.4 (0.2-1.0) mg/dl AST 20 (13-39) U/L ALT 23 (7-52) U/L Alkaline Phosphatase 123 H (34-104) U/L Total Creatine Kinase (26-192) U/L Total Protein 8.4 H (6.0-8.3) gm/dl Albumin 4.8 (3.4-5.0) gm/dl Globulin 3.6 (2.5-4.0) gm/dl Albumin/Globulin Ratio 1.3 (0.9-2) Lipase 19 (11-82) U/L Urine Color Yellow Urine Appearance Clear (Clear) Urine pH 6.0 (4.5-7.5) Ur Specific [place] > 1.045 H (1.000-1.030) Urine Protein 1+ H (Negative) Urine Glucose (UA) Negative (Negative) Urine Ketones Negative (Negative) Urine Blood 1+ H (Negative) Urine Nitrite Positive A (Negative) Urine Bilirubin Negative (Negative) Urine Urobilinogen Negative (Negative) Ur Leukocyte Esterase Negative (Negative) Urine WBC (Auto) 21-50 H (0-5) /hpf Urine RBC (Auto) 6-10 H (0-2) /hpf U Hyaline Cast (Auto) 0-2 (0-2) /lpf U Epithel Cells (Auto) 0-2 (0-2) /hpf Urine Bacteria (Auto) 4+ H (None Seen) Urine Mucus Present A (None Prsent) Urine Comment Stl C. diff Tox B Gene (Neg) Stl C. diff 027-NAP1-BI Adenovirus (PCR) Not Detected (NotDetected) B. pertussis DNA (PCR) Not Detected (NotDetected) B.parapertussis DNA PCR Not Detected (NotDetected) C. pneumoniae DNA (PCR) Not Detected (NotDetected) Coronavirus OC43 (PCR) Not Detected (NotDetected) Coronavirus HKU1 (PCR) Not Detected (NotDetected) Coronavirus 229E (PCR) Not Detected (NotDetected) SARS-CoV-2 (PCR) Not Detected (NotDetected) Coronavirus NL63 (PCR) Not Detected (NotDetected) Human Metapneumovir PCR Not Detected (NotDetected) Influenza Type A (PCR) Not Detected (NotDetected) Influenza Type B (PCR) Not Detected (NotDetected) M. pneumoniae (PCR) Not Detected (NotDetected) Parainfluenza 1 (PCR) Not Detected (NotDetected) Parainfluenza 2 (PCR) Not Detected (NotDetected) Parainfluenza 3 (PCR) Not Detected (NotDetected) Parainfluenza 4 (PCR) Not Detected (NotDetected) RSV (PCR) Not Detected (NotDetected) Entero/Rhino (PCR) Not Detected (NotDetected) Diagnostic Findings Abdomen/Pelvis CT 03/04/25 13:30 CT SCAN OF THE ABDOMEN AND PELVIS WITH IV CONTRAST CLINICAL HISTORY: Generalized abdominal pain. COMPARISON STUDY: Abdominal CT dated 02/13/2025. TECHNIQUE: Following the IV administration of 94 cc of Optiray 320, CT scan of the abdomen and pelvis is performed from the lung bases to the proximal femora. Images are reviewed in the axial, sagittal, and coronal planes. IV contrast was administered without complication. A dose lowering technique was utilized adhering to the principles of ALARA. CT DOSE: 1261.61 mGy.cm FINDINGS: Lung bases: The heart is normal in size and without pericardial effusion. There are tiny calcified granulomas. The lung bases are otherwise clear noting dependent atelectasis. Liver: The contrast-enhanced liver is normal in size, contour, and attenuation. Mild fatty infiltration is seen adjacent to the falciform ligament. There is no intrahepatic biliary ductal dilatation. The hepatic veins and portal veins are patent. Gallbladder: Unremarkable. Spleen: Normal in size and attenuation. Pancreas: Unremarkable. Adrenal glands: Unremarkable. Kidneys: The contrast enhanced kidneys are normal in size and without hydronephrosis. The kidneys enhance symmetrically. Abdominal vasculature: The abdominal aorta is normal in course and caliber noting mild but age advanced atherosclerotic calcification. Bowel: There is mild to moderate colonic fecal retention. No bowel obstruction is seen. The appendix is well-visualized and normal. Peritoneum: There is no intraperitoneal free air or abdominal ascites. There is a fat-containing umbilical hernia. Lymphadenopathy: None. Pelvic viscera: The bladder is partially decompressed around a Cintron catheter. The bladder wall is thickened with mucosal hyperemia and mild surrounding infiltration. The uterus is surgically absent. No adnexal lesion is seen. Skeletal structures: No lytic or blastic lesions are seen. There is severe disc space narrowing with endplate sclerosis and a posterior disc osteophyte complex at L5-S1. IMPRESSION: There is evidence of cystitis. Correlate with clinical findings and urinalysis. ACT 112: Negative or not required by law. Electronically signed by: Guru Chapman M.D. 03/04/2025 1:58 PM Chest X-Ray 03/04/25 13:30 XR chest 2V PA/lateral CLINICAL HISTORY: cough, fever COMPARISON STUDY: Chest CT February 10, 2025. Chest radiograph February 13, 2025. FINDINGS: Lung volumes are normal. Lungs are clear. There is no pneumothorax or pleural effusion. Cardiac size is normal. Mediastinal contours are normal. There is no evidence for pulmonary edema. IMPRESSION: No acute cardiopulmonary findings. ACT 112: Negative or not required by law. Electronically signed by: Travon Arnold M.D. 03/04/2025 2:41 PM PG Care Time/CCT Total # of Minutes Spent Total Time Spent: 75 Total Time Spent with Patient: Total time spent is greater than 50% in coordination of care (as documented) at patient's floor/unit and/or counseling patient: [place] [address] IN/OBS CONSULT LVL 5,80M Patient Type New History Comprehensive Exam Comprehensive Medical Decision Making High Complexity Diagnoses Palliative care by specialist Z51.5 Paraplegia G82.20 Chronic narcotic dependence F11.20 Abdominal pain R10.9 Radicular pain of both lower extremities M54.10 Shortness of breath R06.02 Current smoker F17.200 COPD with emphysema J43.9 Nocturnal hypoxemia G47.34 Severe back pain M54.9 Neuromuscular disease G70.9 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
--- NOTE | 2025-03-07 17:07 | Hospitalist Progress Note ---
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 Recent hospitalization for ESBL Klebsiella UTI and discharged on 02/17/25. Suprapubic catheter placement was being planned for outpatient surgery on 03/11/25 after it was determined that it would be safe to have such surgery at [facility] and not needing tertiary care (Patient has RYR1 mutation which increases risk of malignant hyperthermia but ultimately deemed ok to have surgery here - see documentation from 03/04/25 from PHYLICIA Sweeney). #Catheter-associated UTI | Chronic Moya catheter - Recent history of ESBL Klebsiella UTI. Urine culture currently with Klebsiella pneumoniae ESBL - Continue IV ertapenem - Other infectious work-up including CXR, respiratory biofire - all negative - Urology consulted - plan for suprapubic catheter placement on Friday 03/09. Starting gentamicin irrigations for recurrent UTI prevention - Infectious disease consulted, appreciate assistance. Recommends 7-day course of antibiotics (ertapenem through 03/10). For suprapubic catheter procedure occurs after 03/10, can extend course of ertapenem to make sure she is receiving perioperative antibiotics - Exchange Moya catheter 03/05 - initially was deferred on admission since she will likely have suprapubic cath placed this hospitalization, but ID recommended Moya exchange to clear out some of the bacteria that is likely colonizing the old Moya #Recent diagnosis of polyarticular arthritis - On 02/25 was prescribed Plaquenil 400mg daily + methylprednisolone taper utilizing 4mg tabs (4 tabs QD x 1 week, 3 tabs QD x 1 week, and so forth). No documentation from that rheumatology visit in our system - RA? MCTD? SLE? other? (RF and ESTEBAN negative via the [facility] system in 10/2024) - Continue steroid taper - Hold Plaquenil for now #Diarrhea | Yeast in stool - Hold senna, MiraLAX - C. diff negative - Start probiotic daily for yeast in stool #Mild hypercalcemia - Ca 10.4 on arrival, hypercalcemia now resolved - Receive isotonic IV fluids. Ca now 9.3 - If Ca is persistently elevated, check intact PTH, etc. - she does not take any offending meds that would lead to hypercalcemia #Palliative care - patient follows with Cyndie Prater outpatient - Patient requested palliative consult while here - consult placed and Cyndie will see her on 03/06 #Neuromuscular d/o vs myopathy - She reports significant muscle spasms thus will schedule her baclofen 10mg TID - Continue duloxetine daily , Lyrica TID #Acquired paraplegia - 2nd to neuromuscular disorder vs myopathy; follows with Dr Jhonatan Quick, [facility] Neurology - Wheelchair-dependent at baseline - PT/OT while here #Chronic pain syndrome - PDMP reviewed on admission - Continue Butrans patch 10mcg weekly - Continue morphine IR 15mg prn #Tobacco use - Offer 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 Continue home inhalers #GERD - Continue PPI twice daily VTE PPx: Lovenox - High risk due to immobility Dispo: Continued inpatient stay for IV antibiotics. Planning on suprapubic catheter placement on Friday 03/09. Patient likely to remain inpatient through Saturday 03/10 to complete her course of IV ertapenem. Updated significant other at bedside Started probiotic Admission and Anticipated Discharge Date Admission Date: March 04, 2025 Supervising Physician Co-Signing Physician Notes Attending Attestation - Chart reviewed, care plan d/w PHYLICIA Sanchez. I agree w/ the richardson components of her documentation. Johnny Valerio MD Subjective Patient seen and evaluated at bedside with her significant other present. She reports "the upper half of me feels more energetic today." She denies any discomfort from her Moya catheter today. She continues to have left-sided flank pain. She also reports left-sided abdominal pain that wraps around from her left flank. We discussed urology's recommendation of gentamicin irrigations for recurrent UTI prevention. She also reports "white spots" in her stool, reports a previous stool culture with yeast noted. No additional complaints or concerns at this time. Physical Exam Physical Exam: General: No acute distress, nondiaphoretic, well-developed, well-nourished. Skin: Warm, dry. No rashes or peripheral edema noted. Cardiac: Well-perfused. Rate in 60s. Pulm: Normal respiratory effort. 98% on room air. Abdominal: Soft, nondistended. Tender to palpation of suprapubic region. Bowel sounds present. : Moya catheter draining clear yellow urine. Left-sided CVA tenderness present. Neuro: A&O x3. Results & Data Results & Data Vital Signs (Past 12 Hours) Vital Signs Temp Pulse Resp BP BP Pulse Ox O2 Del Method 03/07/25 14:19 98.2 F 62 16 110/70 98 Room Air 03/07/25 07:15 97.7 F 70 16 107/70 96 Room Air PG Care Time/CCT Total # of Minutes Spent Total Time Spent with Patient: Total time spent is greater than 50% in coordination of care (as documented) at patient's floor/unit and/or counseling patient: Coding Level of Care Code 23372 SUB INP/OBS CARE 3/50MIN Diagnoses Urinary tract infection associated with indwelling urethral catheter, initial encounter T83.511A; N39.0 Encounter type: initial encounter Indwelling urinary catheter type: indwelling urethral catheter Infection due to ESBL-producing Klebsiella pneumoniae A49.8; Z16.12 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
[2025-03-07] MEDS: ADVANCED PROBIOTIC 625 MG CAPSULE PO SCH (17:23)
--- NOTE | 2025-03-08 12:14 | Urology Progress Note ---
Date of Service March 08, 2025 Assessment & Plan (1) Infection due to ESBL-producing Klebsiella pneumoniae: Plan: Afebrile hd stable 44F with MDRO UTI and catheter dependant neurogenic bladder in setting degenerative neuromuscular condition. on basis flank tenderness to light palpation suspect component of ascending infection and pyelonephritis, also appears patient has had difficult clearing infection in past and had not tolerated levaquin the only remaining PO option as per most recent culture agree with continued IV abx with ertapenem plan for SPT placement under sedation and local anesthesia Sunday recommend gentamicin irrigation of catheter nightly while inpatient, 30 mg gentamicin in 50 ml saline, please involve patient in this process so she can take over this management at home if patient highly bothered by catheter can remove this and proceed with intermittent catheterization q6 hrs or as needed for discomfort, patient lacks dexterity for same at home but could be helpful while inpatient will proceed with SPT placement tomorrow as planned unless becomes febrile - please call with questions Admission and Anticipated Discharge Date Admission Date: March 04, 2025 Subjective feeling worse now having more bilateral flank pain noting some hematuria, no nausea vomiting no subjective fevers eating diet. Eager to proceed with surgery. Gen: NAD Psych: Alert and Oriented Abd: Nontender nondistended, bilateral flanks ttp : catheter in place light pink urine Results & Data Vital Signs (Past 12 Hours) Vital Signs Temp Pulse Resp BP Pulse Ox O2 Del Method 03/08/25 07:27 36.6 C 64 16 114/73 94 Room Air PG Care Time/CCT Total # of Minutes Spent Total Time Spent with Patient: Total time spent is greater than 50% in coordination of care (as documented) at patient's floor/unit and/or counseling patient: Coding Level of Care Code 41768 SUB INP/OBS CARE 2/35MIN Diagnoses Infection due to ESBL-producing Klebsiella pneumoniae A49.8; Z16.12
--- NOTE | 2025-03-08 14:04 | Hospitalist Progress Note ---
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 Recent hospitalization for ESBL Klebsiella UTI and discharged on 02/17/25. Suprapubic catheter placement was being planned for outpatient surgery on 03/11/25 after it was determined that it would be safe to have such surgery at [facility] and not needing tertiary care (Patient has RYR1 mutation which increases risk of malignant hyperthermia but ultimately deemed ok to have surgery here - see documentation from 03/04/25 from PHYLICIA Sweeney). #Catheter-associated UTI | Chronic Moya catheter - Recent history of ESBL Klebsiella UTI. Urine culture currently with Klebsiella pneumoniae ESBL. Other infectious work-up including CXR, respiratory biofire - all negative - Continue IV ertapenem - Urology consulted - plan for suprapubic catheter placement on Friday 03/09. Starting gentamicin irrigations for recurrent UTI prevention - Infectious disease consulted, appreciate assistance. Recommends 7-day course of antibiotics (ertapenem through 03/10) - Exchange Moya catheter 03/05 - initially was deferred on admission since she will likely have suprapubic cath placed this hospitalization, but ID recommended Moya exchange to clear out some of the bacteria that is likely colonizing the old Moya #Recent diagnosis of polyarticular arthritis - On 02/25 was prescribed Plaquenil 400mg daily + methylprednisolone taper utilizing 4mg tabs (4 tabs QD x 1 week, 3 tabs QD x 1 week, and so forth). No documentation from that rheumatology visit in our system - RA? MCTD? SLE? other? (RF and ESTEBAN negative via the [facility] system in 10/2024) - Continue steroid taper - Hold Plaquenil for now #Diarrhea | Yeast in stool - Hold senna, MiraLAX - C. diff negative - Start probiotic daily for yeast in stool #Mild hypercalcemia - Ca 10.4 on arrival, hypercalcemia now resolved - Receive isotonic IV fluids. Ca now 9.3 - If Ca is persistently elevated, check intact PTH, etc. - she does not take any offending meds that would lead to hypercalcemia #Palliative care - patient follows with Cyndie Prater outpatient - Patient requested palliative consult while here - consult placed and Cyndie will see her on 03/06 #Neuromuscular d/o vs myopathy - She reports significant muscle spasms thus will schedule her baclofen 10mg TID - Continue duloxetine daily , Lyrica TID #Acquired paraplegia - 2nd to neuromuscular disorder vs myopathy; follows with Dr Jhonatan Quick, [facility] Neurology - Wheelchair-dependent at baseline - PT/OT while here #Chronic pain syndrome - PDMP reviewed on admission - Continue Butrans patch 10mcg weekly - Continue morphine IR 15mg prn #Tobacco use - Offer nicoderm patch - Contact Center Team Lead to quit #COPD - No exacerbation at this time. Continue home inhalers #GERD - Continue PPI twice daily VTE PPx: Lovenox - High risk due to immobility Dispo: Continued inpatient stay for IV antibiotics. Planning on suprapubic cath eter placement on Friday 03/09. Patient likely to remain inpatient through Saturday 03/10 to complete her course of IV ertapenem. Updated significant other at bedside Admission and Anticipated Discharge Date Admission Date: March 04, 2025 Supervising Physician Co-Signing Physician Notes Attending Attestation - Chart reviewed, care plan d/w PHYLICIA Sanchez. I agree w/ the richardson components of her documentation. SP catheter placement planned for tomorrow. Johnny Valerio MD Subjective Patient seen and evaluated at bedside with her significant other present. She reports feeling worse today. She notes bilateral flank pain and left-sided abdominal pain. She denies feeling feverish or chilled. She does not have much of an appetite but is well tolerating her diet without worsened abdominal pain, nausea, or vomiting. She is eager to have her suprapubic catheter placed tomorrow. We discussed that she will likely remain inpatient through Sunday to complete her course of IV or ertapenem. She is agreeable to this plan. No additional complaints or concerns at this time. Physical Exam Physical Exam: General: No acute distress, nondiaphoretic, well-developed, well-nourished. Skin: Warm, dry. No rashes or peripheral edema noted. Cardiac: Well-perfused. Rate in 60s. Pulm: Normal respiratory effort. 98% on room air. Abdominal: Soft, nondistended. Mildly tender to palpation of suprapubic region. Bowel sounds present. : Moya catheter draining now draining pink-tinged urine. Bilateral CVA tenderness present. Neuro: A&O x3. Results & Data Results & Data Vital Signs (Past 12 Hours) Vital Signs Temp Pulse Resp BP Pulse Ox O2 Del Method 03/08/25 07:27 97.9 F 64 16 114/73 94 Room Air PG Care Time/CCT Total # of Minutes Spent Total Time Spent with Patient: Total time spent is greater than 50% in coordination of care (as documented) at patient's floor/unit and/or counseling patient: Coding Level of Care Code 58676 SUB INP/OBS CARE 2/35MIN Diagnoses Urinary tract infection associated with indwelling urethral catheter, initial encounter T83.511A; N39.0 Encounter type: initial encounter Indwelling urinary catheter type: indwelling urethral catheter Infection due to ESBL-producing Klebsiella pneumoniae A49.8; Z16.12 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
[2025-03-08] MEDS: MELATONIN 3 MG TAB PO PRN (20:38)
[2025-03-09 04:25] LABS: Hematocrit (blood only) 37.6 % (37.0-47.0); Hemoglobin 12.8 g/dL (12.0-16.0); Mean Corpuscular Hemoglobin 29.7 pg (25.0-34.0); Mean Corpuscular Volume 87.2 fL (80.0-100.0); Platelet Count 269 K/uL (130-400); RDW Standard Deviation 39.5 fL (36.4-46.3); Red Blood Count 4.31 M/uL (4.20-5.40); White Blood Count 7.85 K/ul (4.8-10.8)
[2025-03-09 04:49] LABS: Anion Gap 6.0 (3-11); Blood Urea Nitrogen 14.0 mg/dl (6-23); Calcium 9.3 mg/dl (8.6-10.3); Carbon Dioxide 28.0 mmol/L (21-32); Chloride 106.0 mmol/L (98-107); Creatinine Clr Calc Pharmacy 91.1 ml/min; Glucose 97.0 mg/dl (70-99(Fasting)); Potassium 3.7 mmol/L (3.5-5.1); Sodium 140.0 mmol/L (136-145)
[2025-03-09] MEDS ORDERED: LIDOCAINE 2% 2 ML VIAL/AMP(20MG/ML) INFIL ONE ×2 (07:37→10:40)
[2025-03-09] MEDS ORDERED: PROPOFOL IV EMULSION 10 MG/ML 20 ML VIAL IV ONE ×6 (07:37→12:35)
[2025-03-09] MEDS ORDERED: ROCURONIUM BROMIDE 10 MG/ML 5 ML VIAL IV ONE (07:41)
[2025-03-09] MEDS ORDERED: ONDANSETRON INJ 2 MG/ML 2 ML VIAL ONE (10:40)
[2025-03-09] MEDS ORDERED: MIDAZOLAM HCL 1 MG/ML 2ML VIAL ONE (10:40)
[2025-03-09] MEDS ORDERED: DEXAMETHASONE SOD INJ 4 MG/ML VIAL ONE (10:40)
[2025-03-09] MEDS: LACTATED RINGER'S 1,000 ML IV SCH (11:17)
--- NOTE | 2025-03-09 11:25 | Anesthesiology Consultation ---
Date of Service March 09, 2025 Assessment & Plan Chart Review Chart Review: Acceptable Risk for Surgery and Patient NOT seen in Pre Admission Testing Consults Requested none History Surgery Operation Date: 03/09/25 08:05 Proposed Procedures p Suprapubic Tube Placement - Ralph Hanks MD Height/Weight Height: 5 ft 1 in Weight: 83 kg Allergies Allergy/AdvReac Type Severity Reaction Status Date / Time Penicillins Allergy Intermediate Hives Verified 02/05/25 14:27 Medications Home Medications Medication Instructions Recorded Confirmed Last Taken pregabalin 150 mg capsule 150 mg PO TID 10/11/24 03/04/25 02/05/25 05:00 conjugated estrogens 0.625 mg/gram 0.3125 mg topical .COMPLEX #30 12/08/24 03/04/25 Unknown vaginal cream (Premarin) grams Adult Briefs #200 ea 12/26/24 02/19/25 Unknown Bedside Commode #1 ea 12/26/24 02/19/25 Unknown Grab Bar, Wall Mounted #1 ea 12/26/24 02/19/25 Unknown Incontinence pad #200 ea 12/26/24 02/19/25 Unknown Nitrile gloves #200 ea 12/26/24 02/19/25 Unknown Over the Bed table #1 ea 12/26/24 02/19/25 Unknown Perineal Cleansing wipes #12 ea 12/26/24 02/19/25 Unknown Trapeze [place] #1 ea 12/26/24 02/19/25 Unknown Underpad, Disposable #200 ea 12/26/24 02/19/25 Unknown food supplemt, lactose-reduced 15 ea PO TID #1,422 mL 12/26/24 03/04/25 Unknown (Ensure Original oral liquid) Flutter Valve #1 ea 12/29/24 02/19/25 Unknown albuterol sulfate 90 mcg/actuation 2 puff inhalation Q4H PRN Wheezing 12/29/24 03/04/25 Unknown aerosol inhaler #8.5 grams budesonide 160 mcg-glycopyr 9 2 inh inhalation BID #10.7 grams 12/29/24 03/04/25 02/04/25 mcg-formot 4.8 mcg/actuation HFA inhaler (Breztri Aerosphere) zolpidem 5 mg tablet 5 mg PO ONCE PRN sleep #2 tabs 12/29/24 03/04/25 02/04/25 sennosides 8.6 mg-docusate sodium 1 tab PO QAM 30 days #30 tabs 12/31/24 03/04/25 02/04/25 50 mg tablet (Senokot-S) lidocaine 5 % topical patch 1 patch transdermal QAM #30 ea 01/16/25 03/04/25 Unknown baclofen 10 mg tablet 10 mg PO TID PRN muscle spasm 30 01/19/25 03/04/25 02/04/25 days #90 tabs buspirone 5 mg tablet 5 mg PO BID #60 tabs 01/19/25 03/04/25 02/04/25 mirtazapine 15 mg tablet 15 mg PO HS depression 1 month #30 01/19/25 03/04/25 02/04/25 tabs nitrofurantoin 100 mg PO DAILY 90 days #90 caps 02/02/25 03/04/25 Unknown monohydrate/macrocrystals 100 mg capsule (Macrobid) duloxetine 30 mg capsule,delayed 30 mg PO QAM 02/03/25 03/04/25 02/05/25 05:00 release nystatin 100,000 unit/gram topical 1 applic topical TID PRN . 02/03/25 03/04/25 Unknown powder buprenorphine 10 mcg/hour weekly 1 patch transdermal Q7D 02/09/25 03/04/25 Unknown transdermal patch (Butrans) neuromuscular degen disease, severe pain 1 month #4 ea ondansetron 4 mg disintegrating 4 mg PO Q6H PRN nausea and 02/09/25 03/04/25 Unknown tablet vomiting 1 month #90 tabs clotrimazole 1 % vaginal cream 1 applic vaginal HS #45 grams 02/17/25 03/04/25 Unknown vibegron 75 mg tablet (Gemtesa) 75 mg PO DAILY #30 tabs 02/17/25 03/04/25 Unknown morphine 15 mg immediate release 15 mg PO Q8H PRN breakthrough 02/19/25 03/04/25 Unknown tablet pain, severe 1 month #90 tabs omeprazole 40 mg capsule,delayed 40 mg PO BID #120 caps 02/19/25 03/04/25 Unknown release polyethylene glycol 3350 17 17 g PO BID 02/19/25 03/04/25 Unknown gram/dose oral powder (Miralax) soluble corn fiber-inulin 1.7 gram 1 tab PO DAILY #30 tabs 02/19/25 03/04/25 Unknown chewable tablet (Metamucil (inulin-corn fiber)) levofloxacin 500 mg tablet 500 mg PO DAILY 10 days #10 tabs 03/03/25 03/04/25 Unknown Active Medications Generic Name Dose Route Start Last Admin Trade Name Freq PRN Reason Stop Dose Admin Acetaminophen 650 mg 03/04/25 22:46 03/08/25 11:54 Acetaminophen 325 Mg Tab PO 04/03/25 22:45 650 mg Q4H PRN Administration pain/fever Baclofen 10 mg 03/04/25 22:46 03/09/25 08:26 Baclofen 10 Mg Tab PO 04/03/25 22:45 10 mg TID DINESH Administration Buprenorphine HCl 1 patch 03/05/25 00:30 03/05/25 01:20 Buprenorphine 10 Mcg/Hr Tdsy TD 04/04/25 00:29 1 patch We@0900 DINESH Administration Buspirone HCl 5 mg 03/04/25 22:46 03/09/25 08:29 Buspirone 5 Mg Tab PO 04/03/25 22:45 5 mg BID DINESH Administration Clotrimazole 1 appln 03/04/25 22:46 03/08/25 20:40 Clotrimazole Vaginal Cr 7 Appln/45 Gm Tube PV 03/11/25 22:45 1 appln HS DINESH Administration Duloxetine HCl 30 mg 03/05/25 09:00 03/09/25 08:28 Duloxetine Hcl 30 Mg Cap PO 04/04/25 08:59 30 mg QAM DINESH Administration Enoxaparin Sodium 40 mg 03/05/25 09:00 03/09/25 08:31 Enoxaparin Inj 40 Mg/0.4 Ml Syr SQ 04/04/25 08:59 40 mg QAM DINESH Administration Estrogens Conjugated 1 appln 03/05/25 21:00 03/05/25 21:26 Premarin Vag Crm 14 Appln/30 Gm Tube PV 04/04/25 20:59 Not Given TuTh@2100 DINESH Fluticasone Furoate 1 puffs 03/05/25 09:00 03/09/25 08:41 Fluticasone Furoate 200mcg 14 Puffs/Inhaler INH 04/04/25 08:59 1 puffs DAILY DINESH Administration Ertapenem 1,000 mg in 10 mls @ 2 mls/min 03/05/25 17:00 03/08/25 18:19 Invanz 1000mg IV 03/15/25 16:59 2 mls/min Q24H DINESH Administration Gentamicin Sulfate 30 mg/ 50 mls @ 0 mls/hr 03/07/25 12:00 03/08/25 11:39 Syringe INSTIL 03/12/25 11:59 500 mls/hr Q24H DINESH Administration Protocol Lactated Ringer's 1,000 mls @ 15 mls/hr 03/09/25 11:00 03/09/25 11:17 Lr IV 03/12/25 10:59 15 mls/hr .Q24H DINESH Administration Lactobacillus Acidophilus 1,250 mg 03/07/25 17:15 03/09/25 08:27 Advanced Probiotic 625 Mg Capsule PO 04/06/25 17:14 1,250 mg DAILY DINESH Administration Lidocaine 1 patch 03/05/25 09:00 03/09/25 08:30 Lidocaine 5% 1 Patch TD 04/04/25 08:59 1 patch QAM DINESH Administration Melatonin 3 mg 03/04/25 22:46 03/08/25 20:38 Melatonin 3 Mg Tab PO 04/03/25 22:45 3 mg HS PRN Administration Insomnia Methylprednisolone 12 mg 03/05/25 09:00 03/09/25 08:28 Methylprednisolone 4 Mg Tab PO 04/04/25 08:59 12 mg DAILY DINESH Administration Mirtazapine 15 mg 03/04/25 22:46 03/08/25 20:39 Mirtazapine Tab 15 Mg Tab PO 04/03/25 22:45 15 mg HS DINESH Administration Miscellaneous 1 each 03/04/25 22:46 03/08/25 20:38 Remove Lidoderm Patch N/A 04/03/25 22:45 1 each DAILY@2100 DINESH Administration Miscellaneous 1 each 03/05/25 00:30 03/05/25 01:25 Remove & Waste Butrans Patch 1 Ea Ea N/A 04/04/25 00:29 1 each We@0900 DINESH Administration Miscellaneous 1 each 03/05/25 08:00 03/09/25 08:27 Check Buprenorphine Patch N/A 04/04/25 07:59 1 each QS DINESH Administration Morphine Sulfate 15 mg 03/04/25 22:46 03/09/25 08:25 Morphine Sulfate Ir 15 Mg Tab (Immediate Release) PO 03/18/25 22:45 15 mg Q8H PRN Administration Pain Ondansetron HCl 4 mg 03/04/25 22:46 03/09/25 08:42 Ondansetron Inj 2 Mg/Ml 2 Ml Vial IV 04/03/25 22:45 4 mg Q6H PRN Administration Nausea Pantoprazole Sodium 40 mg 03/04/25 22:46 03/09/25 08:29 Pantoprazole 40 Mg Tab PO 04/03/25 22:45 40 mg BID DINESH Administration Pregabalin 150 mg 03/04/25 22:46 03/09/25 08:24 Pregabalin 150 Mg Cap PO 04/03/25 22:45 150 mg TID DINESH Administration Umeclidinium/Vilanterol 1 puffs 03/05/25 09:00 03/09/25 08:41 Umeclidinium/Vilanterol 62.5/25mcg 7 Puffs/Inhaler INH 04/04/25 08:59 1 puffs DAILY DINESH Administration Vibegron 75 mg 03/05/25 09:00 03/09/25 08:27 Vibegron 75 Mg Tab PO 04/04/25 08:59 75 mg DAILY DINESH Administration NPO Date Last Intake of Fluids: 03/09/25 Time Last Intake of Fluids: 08:30 Date Last Intake of Solids: 03/08/25 Time Last Intake of Solids: 17:00 Past Medical History Medical History Urinary retention indwelling cintron SOB (shortness of breath) at rest, follows with dr. 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 luz- uses electric wheelchair- will be seeing neurosurgeon in [place] may 2025 Heart problem "they told me i have scarring on my heart" pt states she will see cardio at [facility] on 02/09/25 Destiny has sleep study on 02/17/25 COPD with emphysema uses daily inhaler and rescue inhaler twice daily- gets sob at rest- follow with dr. lee, smokes < 5 cigs per day Ambulatory dysfunction uses motorized wheelchair Trauma in childhood Hiatal hernia Hepatitis unsure which one, says cleared on own- [facility] physician dr. ileana IBARRA (hyperlipidemia) Depression Past Family History Family History Other Prostate cancer Denies family history of Neuromuscular disorder Ovarian cancer Breast cancer Colorectal cancer Past Surgical History Surgical History History of surgery on right wrist (2010) fluid in joints S/P inguinal hernia repair right- as achild S/P x2 S/P tubal ligation S/P right oophorectomy (2017) open S/P laparoscopic hysterectomy (2016) RATLH-LSO Social History Smoking Status: Current every day smoker Smoking cigarettes per day: < 5 cigs per day Do You Dip or Chew Tobacco: No Hx Alcohol Use: No Hx Substance Use: Yes substance use type: marijuana Substance Use Type Other:: Medical Marijuana and Oxycodone for pain Last Used Substance: Days (ago) Last Used Substance Other:: This morning Physical Exam Vital Signs Last Vital Signs Temp 37.2 C 03/09/25 11:13 Pulse 80 03/09/25 11:13 Resp 20 03/09/25 11:13 BP 150/81 H 03/09/25 11:13 Pulse Ox 96 03/09/25 11:13 O2 Del Method Room Air 03/09/25 11:13 Testing Laboratory Results 03/09/25 03:21 03/09/25 03:21 Hemoglobin A1c 6.3 % (4.5-5.6) H 03/05/25 06:26 Urine Color Yellow 03/04/25 15:25 Urine Appearance Clear (Clear) 03/04/25 15:25 Urine pH 6.0 (4.5-7.5) 03/04/25 15:25 Ur Specific [place] > 1.045 (1.000-1.030) H 03/04/25 15:25 Urine Protein 1+ (Negative) H 03/04/25 15:25 Urine Glucose (UA) Negative (Negative) 03/04/25 15: Urine Ketones Negative (Negative) 03/04/25 15:25 Urine Nitrite Positive (Negative) A 03/04/25 15:25 Ur Leukocyte Esterase Negative (Negative) 03/04/25 15:25 Urine WBC (Auto) 21-50 /hpf (0-5) H 03/04/25 15:25 Urine RBC (Auto) 6-10 /hpf (0-2) H 03/04/25 15:25 U Hyaline Cast (Auto) 0-2 /lpf (0-2) 03/04/25 15:25 U Epithel Cells (Auto) 0-2 /hpf (0-2) 03/04/25 15:25 Urine Bacteria (Auto) 4+ (None Seen) H 03/04/25 15:25 03/04/25 15:25 Urine Culture - Final Urine,Straight Cath Klebsiella pneumoniae ESBL
--- NOTE | 2025-03-09 11:28 | History & Physical Bridge Note ---
Date of Service March 09, 2025 History & Physical Bridge Note I have examined the patient, reviewed the History & Physical and in the interval since the performance of the History & Physical I have noted the following changes of clinical significance: no changes noted, continues with abx for mdro UTI started on gentamicin instillations tolerating this well, eager for SPT placement, feels comfortable eager to get out of hospital when can, understands we will plan for first SPT change in our office then make arrangements
[2025-03-09] MEDS ORDERED: ATROPINE SULFATE 0.1 MG/ML 10ML SYR IV PRN (11:35)
[2025-03-09] MEDS: LIDOCAINE 1%/EPINEPHRINE 1:100,000 50 ML VIAL ONE (12:59)
--- NOTE | 2025-03-09 13:18 | Post Operative Brief Note ---
PG Immediate Post Op with CF Date of Surgery March 09, 2025 Pre & Post Diagnosis Operation Date: 03/09/25 08:05 Pre-Op Diagnosis: Infection due to ESBL-producing Klebsiella pneumoniae Post-Op Diagnosis: Infection due to ESBL-producing Klebsiella pneumoniae I identified the patient and participated in the time-out.: Yes Procedure Operation Date: 03/09/25 08:05 Actual Procedures p Suprapubic Tube Placement(Not Applicable) - Ralph Hanks MD Surgeon Ralph Hanks MD Assistant Produce Manager Na Estimated Blood Loss 25 Findings Consistent with Post-Op Diagnosis SP tube positioned correctly in bladder, no bowel near tract on US exam during procedure Specimens Specimen Description: none per surgeon Drains Suprapubic Catheter
[2025-03-09] MEDS: MoRPHine SULFATE 2 MG/ML CARP IV STA ×2 (14:45→20:38)
[2025-03-09] MEDS: ONDANSETRON 4 MG OD TAB PO PRN (14:53)
--- NOTE | 2025-03-09 16:35 | Anesthesiology Progress Note ---
Date of Service March 09, 2025 Anesthesia Post Procedure Vital Signs Vital Signs: Temp Pulse Pulse Pulse Resp BP BP 03/09/25 15:42 36.9 C 69 16 102/64 03/09/25 14:50 36.7 C 65 16 113/73 03/09/25 14:28 36.6 C 69 16 134/86 03/09/25 13:57 36.9 C 69 16 132/82 03/09/25 13:30 36.5 C 71 16 122/72 03/09/25 13:20 94 H 17 128/91 03/09/25 13:11 36.7 C 99 H 18 124/92 03/09/25 11:13 37.2 C 80 20 150/81 H 03/09/25 07:25 36.6 C 63 16 108/72 03/08/25 23:24 36.5 C 62 16 102/67 Pulse Ox O2 Del Method O2 Flow Rate 03/09/25 15:42 96 Room Air 03/09/25 14:50 95 Room Air 03/09/25 14:28 94 Room Air 03/09/25 13:57 93 Room Air 03/09/25 13:30 95 Room Air 03/09/25 13:20 95 Room Air 03/09/25 13:11 95 Oxymask 5 03/09/25 11:13 96 Room Air 03/09/25 07:25 96 Room Air 03/08/25 23:24 95 Room Air Pain Intensity Upper Back: Pain Intensity: 8 Lower Back: Pain Intensity: 10 Transfer of Care Handoff Completed per policy Notes Mental Status: alert / awake / arousable Patient Amnestic to Procedure: Yes Nausea / Vomiting: adequately controlled Pain: adequately controlled Airway Patency, RR, SpO2: stable & adequate BP & HR: stable & adequate Hydration State: stable & adequate Anesthetic Complications: no major complications apparent
--- NOTE | 2025-03-09 16:56 | Hospitalist Progress Note ---
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 Recent hospitalization for ESBL Klebsiella UTI and discharged on 02/17/25. Suprapubic catheter placement was being planned for outpatient surgery on 03/11/25 after it was determined that it would be safe to have such surgery at [facility] and not needing tertiary care (Patient has RYR1 mutation which increases risk of malignant hyperthermia but ultimately deemed ok to have surgery here - see documentation from 03/04/25 from PHYLICIA Manzo). #Catheter-associated UTI | Chronic Cintron catheter - Recent history of ESBL Klebsiella UTI. Urine culture currently with Klebsiella pneumoniae ESBL. Other infectious work-up including CXR, respiratory biofire - all negative - Continue IV ertapenem - Urology consulted - plan for suprapubic catheter placement on Friday 03/09. Starting gentamicin irrigations for recurrent UTI prevention - Infectious disease consulted, appreciate assistance. Recommends 7-day course of antibiotics (ertapenem through 03/10) - Exchange Cintron catheter 03/05 - initially was deferred on admission since she will likely have suprapubic cath placed this hospitalization, but ID recommended Cintron exchange to clear out some of the bacteria that is likely colonizing the old Cintron #Recent diagnosis of polyarticular arthritis - On 02/25 was prescribed Plaquenil 400mg daily + methylprednisolone taper utilizing 4mg tabs (4 tabs QD x 1 week, 3 tabs QD x 1 week, and so forth). No documentation from that rheumatology visit in our system. - RA? MCTD? SLE? other? (RF and ESTEBAN negative via the [facility] system in 10/2024) - Continue steroid taper (will cont 12mg daily through 03/11/25) - Hold Plaquenil for now #Diarrhea | Yeast in stool - Hold senna, MiraLAX - C. diff negative - Start probiotic daily for yeast in stool #Mild hypercalcemia - Ca 10.4 on arrival, hypercalcemia now resolved -Received isotonic IV fluids. Ca now 9.3 -If Ca is persistently elevated, check intact PTH, etc. - she does not take any offending meds that would lead to hypercalcemia #Palliative care - patient follows with Cyndie Prater outpatient -seen by palliative on 03/06/25 with rec for PSG outpatient on d/c for PLACIDO workup #Neuromuscular d/o vs myopathy - She reports significant muscle spasms thus will schedule her baclofen 10mg TID - Continue duloxetine daily, Lyrica TID #Acquired paraplegia - 2nd to neuromuscular disorder vs myopathy; [place] Jhonatan [place] [facility] [place] - Wheelchair-dependent at baseline - PT/OT while here #Chronic pain syndrome - PDMP reviewed on admission Continue Butrans patch 10mcg weekly Continue morphine IR 15mg prn #Tobacco use Offer nicoderm patch Binder Lockstitch to quit #COPD Continue home inhalers #GERD PPI BID VTE PPx: Lovenox - High risk due to immobility Dispo: Continued inpatient stay for IV antibiotics-possible d/c tomorrow to complete course of ertapenem per ID Admission and Anticipated Discharge Date Admission Date: March 04, 2025 Supervising Physician Co-Signing Physician Notes The patient was not seen by me. The chart was reviewed. Case discussed with CHRISTIAN Langley. Agree with assessment and plan. Subjective Pt. returned from OR with c/o lower middle abdominal discomfort with placement of STP. She is awake, alert and oriented. Oxygenating appropriately on room air. Denies nausea/vomiting. Review of Systems Review of Systems: All systems reviewed & are unremarkable except as noted in Subjective Physical Exam Physical Exam: GENERAL APPEARANCE: A&O. Grimacing in bed. NAD. SKIN: Normal color without rashes or lesions. Normal turgor. HEENT: Head AT/NC. Buccal mucosa is moist and pink. NECK: No jugular venous distention. No thyroid enlargement. There is no lymphadenopathy. HEART: RRR without m/g/r LUNGS: Normal inspiratory effort. CTA without w/r/r ABDOMEN: No guarding or rigidity. Normoactive BS in all four quadrants. Abdomen soft and NT. Suprapubic tube present to lower-mid abd area with dressing that is C/D/I. Placed to cintron bag that is draining moderate amounts of clear, yellow urine. Results & Data Results & Data Vital Signs (Past 12 Hours) Vital Signs Temp Pulse Pulse Pulse Resp BP BP 03/09/25 15:42 36.9 C 69 16 102/64 03/09/25 14:50 36.7 C 65 16 113/73 03/09/25 14:28 36.6 C 69 16 134/86 03/09/25 13:57 36.9 C 69 16 132/82 03/09/25 13:30 36.5 C 71 16 122/72 03/09/25 13:20 94 H 17 128/91 03/09/25 13:11 36.7 C 99 H 18 124/92 03/09/25 11:13 37.2 C 80 20 150/81 H 03/09/25 07:25 36.6 C 63 16 108/72 Pulse Ox O2 Del Method O2 Flow Rate 03/09/25 15:42 96 Room Air 03/09/25 14:50 95 Room Air 03/09/25 14:28 94 Room Air 03/09/25 13:57 93 Room Air 03/09/25 13:30 95 Room Air 03/09/25 13:20 95 Room Air 03/09/25 13:11 95 Oxymask 5 03/09/25 11:13 96 Room Air 03/09/25 07:25 96 Room Air Laboratory Results Labs reviewed: CBC, BMP PG Care Time/CCT Total # of Minutes Spent Total Time Spent with Patient: Total time spent is greater than 50% in coordination of care (as documented) at patient's floor/unit and/or counseling patient: Coding Level of Care Code 27372 SUB INP/OBS CARE 2/35MIN Diagnoses Urinary tract infection associated with indwelling urethral catheter, initial encounter T83.511A; N39.0 Encounter type: initial encounter Indwelling urinary catheter type: indwelling urethral catheter Infection due to ESBL-producing Klebsiella pneumoniae A49.8; Z16.12 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
[2025-03-09] MEDS: POLYETHYLENE (MIRALAX) 17 GM PACK PO SCH (20:41)
[2025-03-10] MEDS: MoRPHine SULFATE 2 MG/ML CARP IV STA ×2 (04:46→16:05)
[2025-03-10] MEDS: DOCUSATE SODIUM/SENNA 50/8.6MG TAB PO SCH (08:35)
--- NOTE | 2025-03-10 09:07 | Urology Progress Note ---
<Statement entered by Ralph Hanks MD - 03/10/25 11:36> Chart reviewed plan reviewed and agree as written. Date of Service March 10, 2025 Assessment & Plan (1) Catheter-associated urinary tract infection: Plan POD #1 s/p Suprapubic Tube Placement with Dr. Hanks Pt afebrile and hemodynamically stable. Suprapubic catheter intact and draining clear yellow urine. Continues on IV Ertapenem and Gentamicin irrigation of catheter. OK for discharge from perspective. Will need to continue daily Gentamicin irrigation of catheter with 30 mg gentamicin diluted in 50 cc saline daily and can stop the daily Macrobid she was previously taking. Plan for outpatient follow-up with Dr. Hanks as scheduled. Urology will sign off, please contact us any further questions or concerns. Admission and Anticipated Discharge Date Admission Date: March 04, 2025 Subjective Pt seen at bedside this morning. Awake and resting in bed on arrival. NAD. Suprapubic catheter intact and draining clear yellow urine. No fevers. Does c/o lower abdominal discomfort but stated was present prior to SPT placement. Eager to go home. Review of Systems Constitutional: as per Subjective / HPI Genitourinary: as per Subjective / HPI Physical Exam Constitutional: no acute distress Respiratory: no respiratory distress and no labored breathing Neurologic: awake Psychiatric: A+Ox3, euthymic affect Genitourinary: suprapubic catheter intact and draining clear yellow urine, dressing c/d/i Results & Data Vital Signs (Past 12 Hours) Vital Signs Temp Pulse Resp BP BP Pulse Ox O2 Del Method 03/10/25 07:19 36.8 C 77 18 115/75 95 Room Air 03/10/25 04:33 36.7 C 62 14 117/68 95 Room Air 03/09/25 23:11 36.7 C 63 14 110/72 93 Room Air 03/09/25 21:16 36.9 C 75 16 110/72 95 Room Air PG Care Time/CCT Total # of Minutes Spent Total Time Spent with Patient: Total time spent is greater than 50% in coordination of care (as documented) at patient's floor/unit and/or counseling patient: Coding Level of Care Code 79236 SUB INP/OBS CARE 2/35MIN Diagnoses Urinary tract infection associated with indwelling urethral catheter, initial encounter T83.511A; N39.0 Encounter type: initial encounter Indwelling urinary catheter type: indwelling urethral catheter (1) Catheter-associated urinary tract infection Encounter type: initial encounter Indwelling urinary catheter type: indwelling urethral catheter Qualified Code(s): T83.511A - Infection and inflammatory reaction due to indwelling urethral catheter, initial encounter; N39.0 - Urinary tract infection, site not specified
--- NOTE | 2025-03-10 11:43 | Operative Report ---
PG Post Operative Report Pre & Post Diagnosis Operation Date: 03/09/25 08:05 Pre-Op Diagnosis: Infection due to ESBL-producing Klebsiella pneumoniae Post-Op Diagnosis: Infection due to ESBL-producing Klebsiella pneumoniae I identified the patient and participated in the time-out.: Yes Procedure Operation Date: 03/09/25 08:05 Actual Procedures open Suprapubic Tube Placement - Ralph Hanks MD flexible cystoscopy Surgeon Ralph Hanks MD [facility] Consultant Na Estimated Blood Loss 25 Findings Consistent with Post-Op Diagnosis suprapubic catheter in place Specimens none Drains 18 fr silicone catheter (latex allergy) SPT Description of Procedure SURGEON: Dr. Hanks UNDERWATER HUNTER: N/A PREOPERATIVE DIAGNOSIS: urinary retention POSTOPERATIVE DIAGNOSIS: Same PROCEDURE: Flexible cystoscopy, open suprapubic cystotomy FINDINGS: 1. SPT correctly positioned in bladder with balloon inflated ANESTHESIA: sedation with local block ESTIMATED BLOOD LOSS: 25 cc TUBES AND DRAINS: none SPECIMENS: None COMPLICATIONS: none INDICATIONS FOR PROCEDURE: See preoperative diagnosis OPERATIVE DETAIL: The patient was prepped and draped to the umbilicus in the usual sterile fashion in operating room. A catheter was placed into the bladder and used to distend the bladder with sterile water. This was removed and a curved lowesly retractor was then placed and used to tent up on the anterior wall of the bladder. A superficial abdominal wall ultrasound was then performed noting the lowesly retractor in the bladder and no bowel between this and the planned suprapubic tract just cephalad to the pubic symphysis. A sharp incision was developed layer by layer through the abdominal wall until the anterior bladder wall was visualized using meticulous cautery. The bladder was sharply incised and the lowesly retractor was brought through the abdominal wall incision then used to grasp an 18 fr catheter which was brought through the tract and out the urethra without difficulty. The catheter was released from the retractor and brought back into the bladder then inflated with 10 cc water then pulled back to the bladder wall. Clear fluid returned from the catheter. Flexible cystoscopy was performed confirming placement of the catheter in the bladder and appropriate inflation of the balloon. The abdominal incision was closed with deep 3-0 vicryl suture and superficial monocryl suture and the SP tub was secured with 2 silk sutures. The patient tolerated anesthesia well and was awakened without issue and brought to the recovery room. I was present for and personally performed the entirety of the procedure. I attest to the content of the Intraoperative Record and any orders documented therein. Any exceptions are noted below.
[2025-03-10 12:30] VITALS: BP 132/86; PULSE 85; RESP 16; TEMP 98.4; O2SAT 94
--- NOTE | 2025-03-10 17:56 | Discharge Summary ---
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 Recent hospitalization for ESBL Klebsiella UTI and discharged on 02/17/25. Suprapubic catheter placement was being planned for outpatient surgery on 03/11/25 after it was determined that it would be safe to have such surgery at [facility] and not needing tertiary care (Patient has RYR1 mutation which increases risk of malignant hyperthermia but ultimately deemed ok to have surgery here - see documentation from 03/04/25 from PHYLICIA Manzo). #Catheter-associated UTI | Chronic Cintron catheter - Recent history of ESBL Klebsiella UTI. Urine culture currently with Klebsiella pneumoniae ESBL. Other infectious work-up including CXR, respiratory biofire - all negative - Exchange Cintron catheter 03/05 - initially was deferred on admission since she will likely have suprapubic cath placed this hospitalization, but ID recommended Cintron exchange to clear out some of the bacteria that is likely colonizing the old Cintron - received 7 doses of IV ertapenem through 03/10 for completed course of IV antibiotic therapy per ID recommendation - Urology consulted - s/p SPT placement 03/10/25 with Gent instillation-->ordered per urology through [facility] in [place] for home instillation - Infectious disease consulted, appreciate assistance. Recommends 7-day course of antibiotics (ertapenem through 03/10) #Recent diagnosis of polyarticular arthritis - On 02/25 was prescribed Plaquenil 400mg daily + methylprednisolone taper utilizing 4mg tabs (4 tabs QD x 1 week, 3 tabs QD x 1 week, and so forth). No documentation from that rheumatology visit in our system. - RA? MCTD? SLE? other? (RF and ESTEBAN negative via the [facility] system in 2024) - Continue steroid taper (will cont 12mg daily through 03/11/25)-->patient instructed to finish course of steroids as prescribed OTM CONSULTANT - Hold Plaquenil for now #Diarrhea | Yeast in stool - Hold senna, MiraLAX - C. diff negative - Start probiotic daily for yeast in stool #Mild hypercalcemia - Ca 10.4 on arrival, hypercalcemia now resolved -Received isotonic IV fluids. Ca now 9.3 -If Ca is persistently elevated, check intact PTH, etc. 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 Recently hospitalized from 02/13 to 02/17 at [facility] for ESBL Klebsiella UTI treated with IV ertapenem, then upon discharge home was was asked to take 2 more days of PO levaquin at home. She was also given Gemtasa to take at home for bladder spasms. Ms Yañez reports she felt well "for a few days" and actually her main issue upon return were that of swollen joints. She saw rheumatology in [place] and, given polyarticular arthritis/swollen joints of both hands, was placed on "some sort of steroid." Pharmacy records reviewed. On 02/25 she was prescribed Plaquenil 400mg daily along with a methylprednisolone taper (4mg tabs, starting at 4 tabs QD x 1 week, then 3 tabs QD x 1 week, and so forth). Prescribing physician was Dr Mahendra Johnson. Although her joints are improved, she reports fevers for 3-4 days (was 101 F last pm), hot/cold chills, poor po intake, vomiting, and green liquid diarrhea. She is having abdominal pain & suprapubic pain. She reports issues with her cintron "slipping" but denies urethral pain. Denies sick contacts. She has been in touch with [facility] and there have been plans to have suprapubic catheter placed in the next week with the hopes this reduces the risk of recurrent UTIs. Discharge Exam GENERAL APPEARANCE: A&O. Grimacing in bed. NAD. SKIN: Normal color without rashes or lesions. Normal turgor. HEENT: Head AT/NC. Buccal mucosa is moist and pink. NECK: No jugular venous distention. No thyroid enlargement. There is no lymphadenopathy. HEART: RRR without m/g/r LUNGS: Normal inspiratory effort. CTA without w/r/r ABDOMEN: No guarding or rigidity. Normoactive BS in all four quadrants. Abdomen soft and NT. Suprapubic tube present to lower-mid abd area with dressing that is C/D/I. Placed to cintron bag that is draining moderate amounts of clear, yellow urine. Discharge Plan Discharge Items Patient Disposition: Home - Self-Care Reason For Visit: CAUTI Discharge Diagnosis: Catheter associated urinary tract infection Condition on Discharge: Good Activity: Resume your previous activity Driving/Machine Use: No limitations Weightbearing: Full weightbearing Non-emergency contact: Primary Care Provider Call non-emergency contact if: you have any medication questions, your symptoms worsen, your pain is not controlled, your pain is concerning for you and you have a fever Follow-up/Referrals: Ralph Hanks MD [Physician] - 03/31/25 1:30 pm Royer Schofield DO [Primary Care Provider] - 03/16/25 10:30 am Diet: Other - See Diet Comment Diet Comment: Minced and moist, thickened liquids Addtl Attending Provider Instructions: Petey Manjarrez were admitted to the hospital for a catheter associated urinary tract in fection related to a persistent infection with Klebsiella pneumoniae ESBL. You were treated with IV antibiotic for this infection. You received a total of 7 doses IV as recommended by infectious disease. You had a suprapubic tube placement with Dr. Hanks on 03/09/25. Gentamicin antibiotic diluted in saline has been sent to [facility] in [place] to instill in your catheter for you to do daily at home. Please follow up with urology. Continue the steroid taper that was prescribed to you as an outpatient according to the directions as you were administered this medication in the hospital. Medications: Your medication list has been reviewed and reconciled upon discharge to ensure accuracy and continuity of care. An updated list of all your medications is included with your hospital discharge paperwork. Please review this list closely, and make note of any changes. Take your medications as instructed; do not skip a dose of your medicines. Make sure all of your doctors know every medicine you are taking (including luxj-nao-chpuvjq medicines, vitamins, and supplements). Call your primary care provider before taking any new medicines (including over- the-counter medicines, vitamins, and supplements), because some of these may interact with your current medications, or may make your symptoms worse. Tell your primary care provider if you cannot afford your medications. Activity: You can do normal everyday activities as your body allows. Take rest breaks if you feel tired. Do not overexert. Stop activity if you have pain, shortness of breath or feel dizzy. Follow-up appointments: Make an appointment with your primary care physician within one week of discharge. A copy of this summary will be sent to them. Every time you see your primary care physician, or any other doctor, bring your medication list, and a list of questions. CONTACT YOUR PRIMARY CARE PROVIDER if you experience any of the following: Shortness of breath or difficulty breathing Fevers or chills Feeling tired with normal activity or experiencing dizziness or fainting Difficulty following your treatment plan, or difficulty taking medications CALL 911 OR GO TO THE EMERGENCY DEPARTMENT if you experience any of the following: Severe abdominal pain or nausea/vomiting Severe chest pain, or chest pain that radiates (moves) to your jaw or arm Sudden, severe shortness of breath or difficulty breathing Thank you for allowing us to participate in your care. Add Shoemaker Apprentice Provider Instructions: -Please contact the urology office at [phone] with any questions, concerns or need to reschedule appointments for any reason. We are happy to assist you. -Continue daily Gentamicin irrigation of catheter with 30 mg gentamicin diluted in 50 cc saline daily. A prescription has been sent to [facility] in [place]. -You can stop the daily Nitrofurantoin. Pending Studies at Discharge: No Stand-Alone Forms: My [facility], Smoking Cessation Medications and DC Order Prescriptions: Continued (DME) Adult Briefs XL See Rx Instructions .Route .MEDSUPPLY Qty: 200 3RF Rx Instructions: As directed (DME) Trapeze [place] See Rx Instructions .Route .MEDSUPPLY Qty: 1 0RF Rx Instructions: As directed (DME) Incontinence pad See Rx Instructions .Route .MEDSUPPLY Qty: 200 3RF Rx Instructions: As directed (DME) Bedside Commode See Rx Instructions .Route .MEDSUPPLY Qty: 1 0RF Rx Instructions: As directed (DME) Over the Bed table See Rx Instructions .Route .MEDSUPPLY Qty: 1 0RF Rx Instructions: As directed (DME) Perineal Cleansing wipes See Rx Instructions .Route .MEDSUPPLY Qty: 12 3RF Rx Instructions: As directed (DME) Underpad, Disposable See Rx Instructions .Route .MEDSUPPLY Qty: 200 3RF Rx Instructions: As directed (DME) Grab Bar, Wall Mounted See Rx Instructions .Route .MEDSUPPLY Qty: 1 0RF Rx Instructions: As directed (DME) Nitrile gloves See Rx Instructions .Route .MEDSUPPLY Qty: 200 0RF Rx Instructions: As directed Ensure Original Liquid 15 ea PO TID Qty: 1422 3RF sennosides-docusate sodium [Senokot-S] 8.6-50 mg tablet 1 tab PO QAM 30 Days Qty: 30 3RF lidocaine 5 % adhesive patch,medicated 1 patch transdermal QAM Qty: 30 0RF baclofen 10 mg tablet 10 mg PO TID PRN (Reason: muscle spasm) 30 Days Qty: 90 1RF mirtazapine 15 mg tablet 15 mg PO HS 30 Days Qty: 30 1RF buspirone 5 mg tablet 5 mg PO BID Qty: 60 3RF ondansetron 4 mg tablet,disintegrating 4 mg PO Q6H PRN (Reason: nausea and vomiting) 30 Days Qty: 90 1RF gentamicin 40 mg/mL solution See Rx Instructions IV .COMPLEX Qty: 50 0RF Rx Instructions: For intravesical irrigation; flush the catheter with 30 mg gentamicin diluted in 50 cc saline daily Premarin 0.625 mg/gram cream 0.3125 mg topical .COMPLEX Qty: 30 0RF Rx Instructions: apply 0.5g nightly x 2 weeks, then 2x/wk albuterol sulfate 90 mcg/actuation HFA aerosol inhaler 2 puff inhalation Q4H PRN (Reason: Wheezing) Qty: 8.5 3RF Breztri Aerosphere 160-9-4.8 mcg/actuation HFA aerosol inhaler 2 inh inhalation BID Qty: 10.7 2RF zolpidem 5 mg tablet 5 mg PO ONCE PRN (Reason: sleep) Qty: 2 0RF Rx Instructions: Take 1 tab on the night of sleep study (DME) Flutter Valve Device See Rx Instructions .MEDSUPPLY Qty: 1 0RF Rx Instructions: Use it every 6 hours when awake. polyethylene glycol 3350 [Miralax] 17 gram/dose powder 17 g PO BID Patient Comments: 03/04- otc unable to verify Metamucil (inulin-corn fiber) 1.7 gram tablet,chewable 1 tab PO DAILY Qty: 30 0RF Patient Comments: 03/04- otc unable to verify omeprazole 40 mg capsule,delayed release(DR/EC) 40 mg PO BID Qty: 120 3RF morphine 15 mg tablet 15 mg PO Q8H PRN (Reason: breakthrough pain, severe) 30 Days Qty: 90 0RF nystatin 100,000 unit/gram powder 1 applic topical TID PRN (Reason: .) duloxetine 30 mg capsule,delayed release(DR/EC) 30 mg PO QAM clotrimazole 1 % Cream 1 applic vaginal HS Qty: 45 0RF Gemtesa 75 mg Tablet 75 mg PO DAILY Qty: 30 0RF pregabalin 150 mg capsule 150 mg PO TID Discontinued levofloxacin 500 mg tablet 500 mg PO DAILY 10 Days Qty: 10 0RF nitrofurantoin monohyd/m-cryst [Macrobid] 100 mg capsule 100 mg PO DAILY 90 Days Qty: 90 0RF Hold Instructions: Resume on 02/20/25. Rx Instructions: must administer with a meal/food, antibiotic suppression for recurrent UTI, start after current course Levaquin completed (02/09) Discharge Orders: Discharge Order (Routine); Ordered 03/10/25 Ordered By: Jennyfer Dorsey/Other Patient Handouts: Prediabetes, 5 Steps for Eating Healthier, Suprapubic Catheter Dc Admission Data Admit Date/Time: 03/04/25 19:10 Attending Provider: Andi Roach Admit Provider: Johnny Valerio Primary Care Provider: Royer Schofield Other Providers: Johnny Valerio; Ralph Hanks; Amarilys Crane Other Interventions: Discharge Summary Assessment (RN) Last Done: 03/10/25 16:24 Hospital Stay Data Consultations 03/04/25 17:53 ED Decision to Admit Stat 03/04/25 22:46 Consult Urology Routine 03/05/25 12:26 Consult Infectious Diseases Routine 03/05/25 12:27 Consult Palliative Care Routine Procedures Performed Operation Date: 03/09/25 08:05 Actual Procedures p Suprapubic Tube Placement(Not Applicable) - Ralph Hanks MD Diagnostic Imagining Performed 03/04/25 13:30 CT Abd and Pelvis [CT abd pelvis IV con only] Stat Pending Results Patient Have Any Pending Studies at Discharge: No Discharge Instructions Given to Patient (Per Discharging Provider) Petey Manjarrez were admitted to the hospital for a catheter associated urinary tract infection related to a persistent infection with Klebsiella pneumoniae ESBL. You were treated with IV antibiotic for this infection. You received a total of 7 doses IV as recommended by infectious disease. You had a suprapubic tube placement with Dr. Hanks on 03/09/25. Gentamicin antibiotic diluted in saline has been sent to [facility] in [place] to instill in your catheter for you to do daily at home. Please follow up with urology. Continue the steroid taper that was prescribed to you as an outpatient according to the directions as you were administered this medication in the hospital. Medications: Your medication list has been reviewed and reconciled upon discharge to ensure accuracy and continuity of care. An updated list of all your medications is included with your hospital discharge paperwork. Please review this list cl osely, and make note of any changes. Take your medications as instructed; do not skip a dose of your medicines. Make sure all of your doctors know every medicine you are taking (including bujg-him-lukmpsd medicines, vitamins, and supplements). Call your primary care provider before taking any new medicines (including over- the-counter medicines, vitamins, and supplements), because some of these may interact with your current medications, or may make your symptoms worse. Tell your primary care provider if you cannot afford your medications. Activity: You can do normal everyday activities as your body allows. Take rest breaks if you feel tired. Do not overexert. Stop activity if you have pain, shortness of breath or feel dizzy. Follow-up appointments: Make an appointment with your primary care physician within one week of discharge. A copy of this summary will be sent to them. Every time you see your primary care physician, or any other doctor, bring your medication list, and a list of questions. CONTACT YOUR PRIMARY CARE PROVIDER if you experience any of the following: Shortness of breath or difficulty breathing Fevers or chills Feeling tired with normal activity or experiencing dizziness or fainting Difficulty following your treatment plan, or difficulty taking medications CALL 911 OR GO TO THE EMERGENCY DEPARTMENT if you experience any of the following: Severe abdominal pain or nausea/vomiting Severe chest pain, or chest pain that radiates (moves) to your jaw or arm Sudden, severe shortness of breath or difficulty breathing Thank you for allowing us to participate in your care. Supervising Physician Co-Signing Physician Notes The patient was not seen by me. The chart was reviewed. Case discussed with CHRISTIAN Langley. Agree with assessment and plan. 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
== END 2025-03-10 16:32 | disposition home health service (06) | DRG 698 ==
LOC: ED 11:50 → SUATTDRO 19:10 → 3E 19:10